=== PATIENT | male | born 1995 | race Caucasian/White ===

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

== ENCOUNTER 2017-01-03 18:27 | Inpatient (IN) | payer MEDICAID ==
[~2017-01-03] VITALS: Ht 177.8 cm; Wt 113.5 kg
[2017-01-03 18:58] LABS: MEAN CORPUSCULAR HEMOGLOBIN 30.8 pg (27.0-33.0); MEAN CORPUSCULAR VOLUME 90.3 fl (80.0-96.0); RED CELL DISTRIBUTION WIDTH 12.2 % (11.5-14.5); WHITE BLOOD COUNT 8.6 K/mm3 (4.0-10.0)
[2017-01-03 19:32] LABS: ALBUMIN 3.6 GM/DL (3.2-5.2); ALBUMIN/GLOBULIN RATIO 1.09 (1.00-1.93); ALKALINE PHOSPHATASE 94 U/L (45-117); ALT/SGPT 53 U/L (12-78); ANION GAP 9 MEQ/L (8-16); AST/SGOT 29 U/L (15-37); BILIRUBIN,DIRECT < 0.1 MG/DL (0.0-0.2); BILIRUBIN,TOTAL 0.3 MG/DL (0.2-1.0); BLOOD UREA NITROGEN 13 MG/DL (7-18); CALCIUM LEVEL 8.4 MG/DL (8.5-10.1); CARBON DIOXIDE LEVEL 23 MEQ/L (21-32); CHLORIDE LEVEL 109 MEQ/L (98-107); CREATININE FOR GFR 1.06 MG/DL (0.70-1.30); GLUCOSE, FASTING 124 MG/DL (70-105); SODIUM LEVEL 141 MEQ/L (136-145); TOTAL PROTEIN 6.9 GM/DL (6.4-8.2)
[2017-01-03 22:15] LABS: METHADONE URINE NEGATIVE (NEGATIVE)
--- NOTE | 2017-01-04 06:44 | ECGEPIP ---
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
[2017-01-04] MEDS ORDERED: SERTRALINE HCL 50 MG TAB PO ONE (07:30)
[2017-01-04] MEDS ORDERED: ARIPiprazole 10 MG TAB PO ONE (07:30)
[2017-01-04] MEDS ORDERED: DIVALPROEX 250 MG TAB PO ONE (07:30)
[2017-01-04] MEDS ORDERED: CETIRIZINE (ZyrTEC) 10 MG TAB PO ONE (07:30)
[2017-01-05] MEDS ORDERED: SERTRALINE HCL 50 MG TAB PO ONE (08:30)
[2017-01-05] MEDS ORDERED: ARIPiprazole 10 MG TAB PO ONE (08:30)
[2017-01-05] MEDS ORDERED: CETIRIZINE (ZyrTEC) 10 MG TAB PO ONE (08:30)
[2017-01-05] MEDS ORDERED: ARIPiprazole 10 MG TAB PO SCH (09:00)
[2017-01-05] MEDS: DIVALPROEX 250 MG TAB PO SCH ×2 (09:00→22:01)
[2017-01-05] MEDS: NICOTINE 21MG/24HR 1 EA TRANSDERMAL TD SCH (09:00)
[2017-01-05] MEDS ORDERED: MAALOX 30 ML SUSP *UDC PO PRN (13:45)
[2017-01-05] MEDS ORDERED: ACETAMINOPHEN TAB 650MG DOSE (2X325MG) PO PRN (13:45)
[2017-01-05] MEDS ORDERED: MOM 30ML SUSPENSION UDC PO PRN (13:45)
[2017-01-05] MEDS ORDERED: ABIL20TA5 PO (14:56)
[2017-01-05 17:28] VITALS: BP 143/89
[2017-01-05] MEDS ORDERED: traZODone 50 MG TAB PO PRN (21:00)
[2017-01-06 06:24] VITALS: BP 130/63
[2017-01-06] MEDS: SERTRALINE HCL 50 MG TAB PO SCH (08:55)
[2017-01-06] MEDS: DIVALPROEX 250 MG TAB PO SCH ×2 (08:55→20:58)
[2017-01-06] MEDS: ARIPiprazole 10 MG TAB PO SCH (08:55)
[2017-01-06] MEDS: NICOTINE 21MG/24HR 1 EA TRANSDERMAL TD SCH (09:00)
--- NOTE | 2017-01-06 10:00 | HPEPDOC ---
Medical History and Physical Date of Admission Jan 05, 2017 at 13:45 History and Physical PCP:[facility] ATTENDING: Dr. Ankur Teixeira HPI: 21yoM admitted to [facility] for depression, undifferentiated, being medically examined today. Pt has no concerns at this time. He is noted to have superficial lacerations left forearm. Denies any fevers, chills, weakness, fatigue, POTTER, CP, SOB, cough, palpitations, abdominal pain, N/V/D or changes in bowel or bladder habits. PMHx: Anxiety depression H/O SI ADHD Self mutilation insomnia allergic rhinitis H/O Headache PSHX: Tonsillectomy/adenoidectomy SOCHX: Resides in: [facility]. Marital Status: Single Kids: None Employment: Unemployed Tobacco use: States quit 1 month ago. ETOH: Few drinks per month Illicit Drugs: Marijuana 2 times per week. IV Drug Use: Denies Tattoos done unprofessionally: Denies FAMHX: Mother: Alive, well Father: , suicide at age 23 Siblings: Alive, well Children: None Unexpected deaths due to medical reasons: None. ROS: As noted in HPI, otherwise 11pt ROS of systems reviewed and unremarkable PE: GEN: 21 yo M, appears stated age. Well-nourished, well developed. No acute distress. Alert and oriented x 3. Pleasant, interactive. HEENT: Normocephalic, atraumatic. Pupils are equal, round, and reactive to light. Extraocular movements are intact. No nystagmus appreciated. Sclera are nonicteric. Conjunctiva without injection. Nose midline. Nasal turbinates without bogginess. EACs both patent BL. TMs both visualized and sarah with good cone of light, no bulging or erythema. No facial asymmetry. Moist mucous membranes. Dentition fair. Pharynx pink and moist, no cobblestoning. Neck supple , trachea midline. No lymphadenopathy or thyromegaly appreciated. CHEST: Regular rate and rhythm, +S1, +S2 LUNGS: Clear to auscultation bilaterally. No wheezes, rales, or rhonchi. Breathing appears symmetric and easy. Patient is speaking in full sentences. No accessory muscle use. ABD: Round, soft, non-tender, non-distended. +Bowel sounds throughout. No rebound or guarding. No costovertebral angle tenderness. EXT: Pulses 2+ bilaterally dorsalis pedis and radial. No lower extremity edema appreciated. SKIN: [place], dry, warm. Capillary refill <2sec. No rashes. NEURO: Alert and oriented x 3. Cranial nerves III-XII are intact. No focal deficits appreciated. EK01/03/17 SINUS RHYTHM A&P: 21yoM admitted to [facility] for depression, undifferentiated 1. Psych. Plan per Psychiatry. EKG on file. 2. Headache. Continue Tylenol as needed. 3. Follow up with PCP on discharge. [facility]. 4. BMI 35.9. TSH WNL, FBS WNL. Complicates care. 5. Allergic rhinitis. Continue Zyrtec 10 mg daily and Flonase daily. 6. Staff member present throughout exam, monica Palencia. Vital Signs Vital Signs Date Time Temp Pulse Resp B/P (MAP) Pulse Ox O2 Delivery O2 Flow Rate FiO2 01/06/17 06:24 96.6 68 19 130/63 (85) 01/05/17 17:28 Room Air 01/05/17 16:55 98 Laboratory Data Labs 24H Item Value Date Time White Blood Count 8.6 K/mm3 01/03/171851 Red Blood Count 4.73 M/mm3 01/03/171851 Hemoglobin 14.6 g/dl 01/03/171851 Hematocrit 42.8 % 01/03/171851 Mean Corpuscular Volume 90.3 fl 01/03/171851 Mean Corpuscular Hemoglobin 30.8 pg 01/03/171851 Mean Corpuscular Hemoglobin Concent 34.0 g/dl 01/03/171851 Red Cell Distribution Width 12.2 % 01/03/171851 Platelet Count 203 k/mm3 01/03/171851 Sodium Level 141 MEQ/L 01/03/171851 Potassium Level 4.0 MEQ/L 01/03/171851 Chloride Level 109 MEQ/L H 01/03/171851 Carbon Dioxide Level 23 MEQ/L 01/03/171851 Anion Gap 9 MEQ/L 01/03/171851 Blood Urea Nitrogen 13 MG/DL 01/03/171851 Creatinine 1.06 MG/DL 01/03/171851 Fasting Glucose 124 MG/DL H 01/03/171851 Calcium Level 8.4 MG/DL L 01/03/171851 Total Bilirubin 0.3 MG/DL 01/03/171851 Direct Bilirubin < 0.1 MG/DL 01/03/171851 Aspartate Amino Transf (AST/SGOT) 29 U/L 01/03/171851 Alanine Aminotransferase (ALT/SGPT) 53 U/L 01/03/171851 Alkaline Phosphatase 94 U/L 01/03/171851 Total Protein 6.9 GM/DL 01/03/171851 Albumin 3.6 GM/DL 01/03/171851 Albumin/Globulin Ratio 1.09 01/03/171851 Thyroid Stimulating Hormone (TSH) 2.340 uIU/ML 01/03/171851 Salicylates Level < 1.7 MG/DL L 01/03/171851 Urine Opiates Screen NEGATIVE 01/03/172144 Urine Methadone Screen NEGATIVE 01/03/172144 Acetaminophen Level < 2.0 UG/ML L 01/03/171851 Urine Barbiturates Screen NEGATIVE 01/03/172144 Valproic Acid (Depakene) Level 14.3 UG/ML L 01/03/172302 Urine Phencyclidine Screen NEGATIVE 01/03/172144 Urine Amphetamines Screen NEGATIVE 01/03/172144 Urine Benzodiazepines Screen NEGATIVE 01/03/172144 Urine Cocaine Metabolite Screen NEGATIVE 01/03/172144 Urine Cannabinoids Screen POSITIVE H 01/03/172144 Ethyl Alcohol Level < 0.003 % 01/03/171851 Home Medications Scheduled Aripiprazole (Abilify) 20 Mg Tab, 20 MG PO QHS Cetirizine HCl (Cetirizine HCl) 10 Mg Tab, 10 MG PO DAILY for ALLERGIES Divalproex Sodium (Depakote) 250 Mg Tab, 250 MG PO BID for MOOD Fluticasone Propionate (Fluticasone Propionate 0.05%) 120 [place]/16 Gm Naspr, 1 SPRAY NA DAILY for ALLERGIES PER NOSTRIL Sertraline Hcl (Sertraline HCl) 50 Mg Tab, 50 MG PO DAILY for MOOD Allergies Coded Allergies: No Known Allergies (Unverified , 01/08/16) Brina Mora Jan 06, 2017 10:00
[2017-01-06] MEDS: CETIRIZINE (ZyrTEC) 10 MG TAB PO SCH (10:18)
[2017-01-06] MEDS: FLUTICASONE PROP 0.05% NASAL SPRAY 16 GM (FLONASE) SCH (10:22)
--- NOTE | 2017-01-06 13:17 | MHHPEPDOC ---
[facility] History & Physical History and Physical DATE OF ADMISSION: Jan 05, 2017 at 13:45 LEGAL STATUS AT ADMISSION: 9.39 CHIEF COMPLAINT: "Something was telling me to cut. I hear voices when I get upset". HISTORY OF THE PRESENT ILLNESS: Patient is a 21-year-old male, who is currently a resident of [facility] in [place]. He resides in a mcc. His Manager Banking is Kait Valdez. Pt has numerous admissions to out unit since 2014 with diagnosis ranging from MDD to Schizoaffective disorder. He was visiting his parents home when he got into an argument and anger is a triger for his psychotic symptoms. He started hearing voices telling him to cut himself and his mother called 911. He states that he hears 1 or 2 male voices. He reports that he was so angry "I felt possessed by a demon". He admits to not taking his medication regularly offering , "I don't like to take pills". However he will drink Andres Beam and smoke marijuana. He has been drinking quite a bit lately and attends the [facility] addictions program. He is drug tested but somehow his drug use recently has not been detected. The night of his admission, pt had learned his Girlfriend cheated on him with her ex-boyfriend. He went to his parents house and argued with them and wanted to harm himself. PSYCHIATRIC REVIEW OF SYSTEMS: Affective: calm, smiling, pleasant. Anxiety: mild. Trauma: Patient says he was bullied by his classmates when he was a young boy because he was different. He denies sexual or physical abuse from his family. He says he started feeling very depressed when his grandmother passed a couple of years ago. She was his stepfather's mother and he felt closer to her than to his maternal grandmother. He feels that his grandmother's was a trigger for his depression. Psychosis: auditory hallucinations, can be triggered by marijuana, can be triggered by anger. Personally: cooperative, easy to engage. PAST PSYCHIATRIC HISTORY: Prior Psychiatric Disorder: MDD, Schizophrenia, Schizoaffective disorder, MDD with psychotic features., Depression, undifferentiated. Outpatient Treatment: [facility] addiction ewing Suicidal/Self injurious: h/o self inflicted injury in response to voices telling him to cut himself. When angered he has punched the wall or he has punched his hand through glass. Pt states it is a relief for him and he feels better after hurting himself and it helps him to calm down. Psychotropic Medication History: current meds prescribed are sertraline, abilify , trazodone & depakote ALLERGIES: NKDA FAMILY PSYCHIATRIC HISTORY: Mother, depression, father-alcoholic "sick in the head" committed suicide by gunshot to the head, Maternal Grand Mother has bipolar disorder. SOCIAL HISTORY: Early Relations/development: father from suicide when pt was 6 months old. Sibling order: He is the oldest and the only son of his mother's first marriage. He has a half-brother and half sister, who are younger than him. Paternal relationships: Conflictive in relationship with mother, good relationship with stepfather at times, no relationship with his father who when he was an . 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 Legal: none Martial: single never . Economic: disability. Supports: [facility] program, peers, [facility] addiction center. Abuse/trauma: denies sexual assault, physical abuse. SUBSTANCE ABUSE HISTORY: Toxicology negative for most substances, but elevated for Cannabis. He used to smoke cannabis daily but not currently. He frequently smokes it with his step-father. He also continues to drink alcohol. The night of his admission he offers he had 1 shot of whiskey but a week or 2 before his admission he says he drank 1 whole bottle of Geraldo Washburn and "felt fine". Pt denies use of other substances. He does not smoke cigarettes he says. PAST MEDICAL/SURGICAL HISTORY: 1. Tonsillectomy/adenoidectomy 2. H/O Headaches 3. allergic rhinitis VITAL SIGNS: Temperature 97.7, pulse 79, respiratory rate 16, blood pressure 130 /63 , pulse oximetry 98% on room air. EKG: Stationary ECG Study [facility] - ED Test Date: 2017-01-03 Pat Name: CRISTOFER KENNEDY Department: Room: - Gender: M Personnel Research Psychologist: chavo : 1995 Requested By: KECIA Neal Order Number: [id number] Reading MD: Lamont Munoz Measurements Intervals [place] Rate: 77 P: 19 MN: 176 QRS: 18 QRSD: 86 T: 20 QT: 322 QTc: 364 Interpretive Statements SINUS RHYTHM 09/24/16 - RATE INCREASED Electronically Signed On 01-04-2017 6:43:38 EDT by Lamont Munoz DD: Lamont Munoz MD 01/03/172047 DT: ALMA 01/04/17642 DS: ROBERT 01/04/1764201/04/17642 MENTAL STATUS EXAMINATION: General appearance: Patient is a 21-year old male, who appears older than stated age. He has a slim desir, a bit overweight, tall wearing hospital attire. Speech: clear and spontaneous Thought processes: linear but illogical at times. For instance he says he wants to join the and will stop using drugs so he can enlist but he really has not intention of stopping marijuana use. Thought content: appropriate Abstract reasoning and computation: concrete. Description of associations: good. Description of abnormal or psychotic thoughts: He says he feels better after he deliberately harms himself. Pt says at times when he is walking outside and it is windy and he is near a tall building he fears h ewill be thrown up in the air and blown away. He feels after a long walk that he might fly away. Judgment: poor impulse control Insight: poor Orientation: well oriented in all spheres. Recent and remote memory: impaired. Has difficulty with long-term memory. Attention span and concentration: fair, easily distracted. Fund of knowledge: impaired. Mood: "Up and down". Affect: pleasant. DIAGNOSES: 1, MDD, moderate, recurrent with psychotic features. Cannabis dependence Alcohol abuse ADHD by history ASSESSMENT: No evidence of formal thought disorder. No delusions or obsessions, no FOI. Some looseness of associations. Pt appears below average in intelligence. Some of his reasoning is poor. For instance that he could enlist in the with his mental health and substance abuse problems. Pt admits to fluctuation in mood and reports depression 7 days out of the month. He identifies triggers for his anger as his parents (mother and step- father) and relationship problems. He reports hearing voices when upset or angry. He does not recall when he first began hearing voices. He endorses psychomotor retardation not agitation. Pt states that he spends his days working out at the gym, walking and looking for a job. When not doing this he may go to his uncles house where he drinks whisky. Pt does not drive. Pt states he plans to continue using marijuana but plans to stop using ETOH until he is 23 yo. Pt reports good sleep, lack of interest in fishing, hunting and skateboarding- things he typically enjoys., He says 1 or 2 days a week he sits around and does nothing. He reports good concentration, decreased appetite with weight gain and frequent suicidal ideation. He wishes he would just not wake up sometimes. He denies having a plan or intent of suicide. There are no weapons at his mcc. Pt states he worries about getting a phone call with bad news that another family member has . This is how he learned of his Great Grand-father's 2 years ago. He says he "cried like a baby" when he got this call. Aside from harming self, pt identifies quitting the football team in 11th grade as a very impulsive thing he has done. He said he regretted doing this. PROBLEM LIST: 1. risk for suicide 2. ineffective coping skills 3. Non compliance. INITIAL TREATMENT PLAN: 1. Patient was admitted on a 9. 2. Complete history was obtained. 3. With patients permission, family will be contacted and database will be expanded. 4. Patients medication regimen will be reviewed and changed accordingly. 5. Patient will be provided with protected environment. 6. Patient will be treated with individual, group, and milieu therapies. 7. Patient will receive supportive psych-education. 8. Discharge planning will commence immediately. 9. Outpatient follow-up treatment will be strongly recommended. 10. The initial treatment plan will focus initially on: see above ESTIMATED LENGTH OF STAY: 5-7 DAYS. TIME SPENT COUNSELING AND COORDINATING INITIAL CARE: 60 minutes. Medications Scheduled Aripiprazole (Abilify) 20 Mg Tab, 20 MG PO QHS, (Reported) Cetirizine HCl (Cetirizine HCl) 10 Mg Tab, 10 MG PO DAILY for ALLERGIES, ( Reported) Divalproex Sodium (Depakote) 250 Mg Tab, 250 MG PO BID for MOOD Fluticasone Propionate (Fluticasone Propionate 0.05%) 120 Frakes/16 Gm Naspr, 1 SPRAY NA DAILY for ALLERGIES, (Reported) PER NOSTRIL Sertraline Hcl (Sertraline HCl) 50 Mg Tab, 50 MG PO DAILY for MOOD Allergies Coded Allergies: No Known Allergies (Unverified , 01/08/16) Liza Dodge Jan 06, 2017 13:17
[2017-01-06 18:00] VITALS: BP 133/77
[2017-01-06] MEDS ORDERED: OLANZapine ORAL DISINTEGRATING TAB 5MG PO ONE (21:15)
[2017-01-07 06:27] VITALS: BP 112/56
[2017-01-07 07:22] LABS: ALBUMIN 3.7 GM/DL (3.2-5.2); ALBUMIN/GLOBULIN RATIO 1.09 (1.00-1.93); ALKALINE PHOSPHATASE 110 U/L (45-117); ALT/SGPT 55 U/L (12-78); ANION GAP 8 MEQ/L (8-16); AST/SGOT 24 U/L (15-37); BILIRUBIN,TOTAL 0.4 MG/DL (0.2-1.0); BLOOD UREA NITROGEN 15 MG/DL (7-18); CALCIUM LEVEL 9.3 MG/DL (8.5-10.1); CARBON DIOXIDE LEVEL 29 MEQ/L (21-32); CHLORIDE LEVEL 106 MEQ/L (98-107); CREATININE FOR GFR 1.04 MG/DL (0.70-1.30); GLUCOSE, FASTING 81 MG/DL (70-105); POTASSIUM SERUM 4.4 MEQ/L (3.5-5.1); SODIUM LEVEL 143 MEQ/L (136-145); TOTAL PROTEIN 7.1 GM/DL (6.4-8.2)
[2017-01-07] MEDS: CETIRIZINE (ZyrTEC) 10 MG TAB PO SCH (09:19)
[2017-01-07] MEDS: ARIPiprazole 10 MG TAB PO SCH (09:19)
[2017-01-07] MEDS: FLUTICASONE PROP 0.05% NASAL SPRAY 16 GM (FLONASE) SCH (09:19)
[2017-01-07] MEDS: SERTRALINE HCL 50 MG TAB PO SCH (09:19)
[2017-01-07] MEDS: DIVALPROEX 250 MG TAB PO SCH ×2 (09:19→21:34)
--- NOTE | 2017-01-07 13:47 | MHIPNPDOC ---
[facility] Progress Note Progress Note DATE OF SERVICE: 01/07/17 HISTORY: day 3 of admission. Pt has had numerous admissions to our unit since 2015 with diagnosis ranging from MDD to Schizoaffective disorder. He was visiting his parents home when he got into an argument and anger is a trigger for his psychotic symptoms. He started hearing voices telling him to cut himself and his mother called 911. He states that he hears 1 or 2 male voices. He reports that he was so angry "I felt possessed by a demon". He admits to not taking his medication regularly offering, "I don't like to take pills". However he will drink Andres Beam and smoke marijuana. He has been drinking quite a bit lately and attends the [facility] addictions program. He is drug tested but somehow his drug use recently has not been detected. The night of his admission, pt had learned his Girlfriend cheated on him with her ex-boyfriend. He went to his parents house and argued with them and wanted to harm himself. VITAL SIGNS: See below. NEW TEST RESULTS: CMP completed. Glucose 81 for fasting lab. CURRENT MEDICATIONS: See below. MENTAL STATUS EXAMINATION: Patient is a 21-year old male, who appears older than his years. He is tall, a little overweight, bearded, blonde and makes good eye contact.. Speech: Is clear, spontaneous. Language skills are intact Thought processes including:linear Thought content: appropriate Abstract reasoning, and computation: concrete. Description of associations: good. Description of abnormal or psychotic thoughts: pt hears voices when he gets angry or is upset by someone. they tell him to harm himself. He usually cuts himself. He is not actively suicidal at this time, however his depakote level is very subtherapeutic and his compliance warrants monitoring at this time for his safety. Judgment: fair. Insight: good. Orientation: oriented to person, place, time and surroundings. Recent and remote memory: poor by his own admission. Pt has been smoking cannabis regularly for many years. Attention span and concentration: limited Fund of knowledge:limited. Mood: "blah". Affect: blunted. DIAGNOSES: MDD, moderate, recurrent with psychotic features. Cannabis dependence Alcohol abuse ADHD by history ASSESSMENT: Met with pt briefly for 1:1 today. His mood is poor but he is out of his room, attending groups, and interacting appropriately. He is taking medications as ordered.He was compliant with lab work today. Pt is hoping to have a friend visit michelle. He is not having suicidal thoughts and does not wish he was . MANAGEMENT PLAN: We will continue with medications and check his valproic acid level on Thursday. We will plan a family meeting to explain to his parents that he must remain on medication on the weekends. We will explain that stopping the medications repeatedly is unhealthy. Continue close observation and enc pt to attend to hygiene and continue with groups. TIME SPENT: 15 minutes. Vital Signs Vital Signs Date Time Temp Pulse Resp B/P (MAP) Pulse Ox O2 Delivery O2 Flow Rate FiO2 01/07/17 06:27 98.0 62 18 112/56 (74) 01/05/17 17:28 Room Air 01/05/17 16:55 98 Laboratory Data 24H Labs Laboratory Tests 2 01/07/17 06:28: Anion Gap 8, Blood Urea Nitrogen 15, Creatinine 1.04, Sodium Level 143, Potassium Level 4.4, Chloride Level 106, Carbon Dioxide Level 29, Calcium Level 9.3, Aspartate Amino Transf (AST/SGOT) 24, Alanine Aminotransferase (ALT/SGPT) 55, Alkaline Phosphatase 110, Total Bilirubin 0.4, Total Protein 7.1, Albumin 3.7, Albumin/Globulin Ratio 1.09 CBC/BMP Laboratory Tests 01/07/17 06:28 Calcium Level 9.3, Aspartate Amino Transf (AST/SGOT) 24, Alanine Aminotransferase (ALT/SGPT) 55, Alkaline Phosphatase 110, Total Bilirubin 0.4, Total Protein 7.1, Albumin 3.7 Current Medications Current Medications Acetaminophen (Tylenol Tab) 650 mg Q6HP PRN PO HEADACHE or DISCOMFORT; Start at 13:45; Stop 02/04/17 at 13:44 Al Hydrox/Mg Hydrox/Simethicone (Mylanta) 30 ml Q4HP PRN PO HEARTBURN/ INDIGESTION; Start 01/05/17 at 13:45; Stop 02/04/17 at 13:44 Aripiprazole (AbiLIFY) 20 mg DAILY PO ; Start 01/05/17 at 09:00; Stop 01/05/17 at 13:54; Status DC Aripiprazole (AbiLIFY) 20 mg DAILY PO Last administered on 01/07/17 09:19; Start 01/06/17 at 09:00; Stop 02/05/17 at 08:59 Cetirizine HCl (ZyrTEC) 10 mg DAILY PO Last administered on 01/07/17 09:19; Start 01/06/17 at 09:00; Stop 02/05/17 at 08:59 Divalproex Sodium (Depakote) 250 mg BID PO Last administered on 01/07/17 09:19 ; Start 01/05/17 at 09:00; Stop 02/04/17 at 08:59 Fluticasone Propionate (Flonase 0.05% Nasal [place]) 1 spray DAILY NA Last administered on 01/07/17 09:19; Start 01/06/17 at 09:00; Stop 02/05/17 at 08:59 Home Med (Med Rec Complete!) ASDIRECTED XX ; Start 01/05/17 at 15:00; Stop at 15:00; Status DC Magnesium Hydroxide (Milk Of Magnesia) 30 ml DAILYPRN PRN PO CONSTIPATION; Start 01/05/17 at 13:45; Stop 02/04/17 at 13:44 Nicotine (Nicoderm Cq 21mg) 1 patch DAILY TD ; Start 01/05/17 at 09:00; Stop at 08:02; Status DC Sertraline HCl (Zoloft) 50 mg DAILY PO Last administered on 01/07/17 09:19; Start 01/06/17 at 09:00; Stop 02/05/17 at 08:59 Trazodone HCl (Desyrel) 50 mg QHSP PRN PO INSOMNIA; Start 01/05/17 at 21:00; Stop 02/04/17 at 20:59 Allergies Coded Allergies: No Known Allergies (Unverified , 01/08/16) Liza Dodge Jan 07, 2017 13:47
[2017-01-07 18:03] VITALS: BP 138/59
[2017-01-08 06:26] VITALS: BP 126/75
[2017-01-08] MEDS: CETIRIZINE (ZyrTEC) 10 MG TAB PO SCH (09:09)
[2017-01-08] MEDS: SERTRALINE HCL 50 MG TAB PO SCH (09:09)
[2017-01-08] MEDS: ARIPiprazole 10 MG TAB PO SCH (09:09)
[2017-01-08] MEDS: DIVALPROEX 250 MG TAB PO SCH ×2 (09:09→22:03)
[2017-01-08] MEDS: FLUTICASONE PROP 0.05% NASAL SPRAY 16 GM (FLONASE) SCH (09:09)
--- NOTE | 2017-01-08 14:07 | MHIPNPDOC ---
[facility] Progress Note Progress Note DATE OF SERVICE: 01/08/17 HISTORY: day 4 of admission following snorting depakote hoping he would overdose following a fight with parents and learning his GF cheated on him. VITAL SIGNS: See below. NEW TEST RESULTS: na CURRENT MEDICATIONS: See below. MENTAL STATUS EXAMINATION: Patient is a 21-year old male, who is large framed, small desir, wearing hospital clothes, good eye contact. Speech: Is spontaneous Language skills are good. Thought processes including: goal directed. Thought content: appropriate. Abstract reasoning, and computation: concrete. Description of associations: good, not loose. Description of abnormal or psychotic thoughts: denies heairng voices today, denies having suicidal thoughts today. Agrees to inform staff if he has thoughts and fears he may act on them. Judgment: limited Insight: poor. Orientation: well oriented in all spheres. Recent and remote memory: varies Attention span and concentration: fair Fund of knowledge: average. Mood:euthymic. Affect: blunted. DIAGNOSES: MDD, moderate, recurrent with psychotic features. Cannabis dependence Alcohol abuse ADHD by history ASSESSMENT:In room c/o headache this morning. stated he could not attend group due to this. Offered tylenol but he declined stating it does not help him. states he did attend one group yesterday. Encouraged to attend next group and to attend at least 2 a day. Present in lounge at meal times. Interacts well socially. Attended team conference this am. MANAGEMENT PLAN: pt is stabilizing, improved mood, less anger, no auditory hallucinations, no thoughts of suicide for 24 hours. Signed ANGELA for mother today. She will be contact about pt taking his meds on the weekend. Anticipate discharge early next week. TLS will be notified that Thursday is the soonest day but perhaps it will be Thursday. Checking lipids and depakote level tomorrow. TIME SPENT: 15 minutes. Vital Signs Vital Signs Date Time Temp Pulse Resp B/P (MAP) Pulse Ox O2 Delivery O2 Flow Rate FiO2 01/08/17 06:26 98.1 70 18 126/75 (92) 01/05/17 17:28 Room Air 01/05/17 16:55 98 Current Medications Current Medications Acetaminophen (Tylenol Tab) 650 mg Q6HP PRN PO HEADACHE or DISCOMFORT; Start at 13:45; Stop 02/04/17 at 13:44 Al Hydrox/Mg Hydrox/Simethicone (Mylanta) 30 ml Q4HP PRN PO HEARTBURN/ INDIGESTION; Start 01/05/17 at 13:45; Stop 02/04/17 at 13:44 Aripiprazole (AbiLIFY) 20 mg DAILY PO ; Start 01/05/17 at 09:00; Stop 01/05/17 at 13:54; Status DC Aripiprazole (AbiLIFY) 20 mg DAILY PO Last administered on 01/08/17 09:09; Start 01/06/17 at 09:00; Stop 02/05/17 at 08:59 Cetirizine HCl (ZyrTEC) 10 mg DAILY PO Last administered on 01/08/17 09:09; Start 01/06/17 at 09:00; Stop 02/05/17 at 08:59 Divalproex Sodium (Depakote) 250 mg BID PO Last administered on 01/08/17 09:09 ; Start 01/05/17 at 09:00; Stop 02/04/17 at 08:59 Fluticasone Propionate (Flonase 0.05% Nasal [place]) 1 spray DAILY NA Last administered on 01/08/17 09:09; Start 01/06/17 at 09:00; Stop 02/05/17 at 08:59 Home Med (Med Rec Complete!) ASDIRECTED XX ; Start 01/05/17 at 15:00; Stop at 15:00; Status DC Magnesium Hydroxide (Milk Of Magnesia) 30 ml DAILYPRN PRN PO CONSTIPATION; Start 01/05/17 at 13:45; Stop 02/04/17 at 13:44 Nicotine (Nicoderm Cq 21mg) 1 patch DAILY TD ; Start 01/05/17 at 09:00; Stop at 08:02; Status DC Sertraline HCl (Zoloft) 50 mg DAILY PO Last administered on 01/08/17 09:09; Start 01/06/17 at 09:00; Stop 02/05/17 at 08:59 Trazodone HCl (Desyrel) 50 mg QHSP PRN PO INSOMNIA; Start 01/05/17 at 21:00; Stop 02/04/17 at 20:59 Allergies Coded Allergies: No Known Allergies (Unverified , 7/19/16) Liza Dodge Jan 08, 2017 14:07
[2017-01-08 18:00] VITALS: BP 145/85
[2017-01-09 06:20] VITALS: BP 126/59
[2017-01-09] MEDS: FLUTICASONE PROP 0.05% NASAL SPRAY 16 GM (FLONASE) SCH (08:00)
[2017-01-09] MEDS: ARIPiprazole 10 MG TAB PO SCH (08:01)
[2017-01-09] MEDS: DIVALPROEX 250 MG TAB PO SCH ×2 (08:01→21:45)
[2017-01-09] MEDS: SERTRALINE HCL 50 MG TAB PO SCH (08:01)
[2017-01-09] MEDS: CETIRIZINE (ZyrTEC) 10 MG TAB PO SCH (08:01)
--- NOTE | 2017-01-09 09:50 | MHIPNPDOC ---
[facility] Progress Note Progress Note DATE OF SERVICE: 01/09/17 HISTORY: day 5 of admission, pt admitted after an argument with parents where he threatened suicide by snorting his depakote. Pt also upset over the breakup of his relationship with a female who cheated on him. Pt was suicidal and depressed. VITAL SIGNS: See below. NEW TEST RESULTS: Lipid panel: Triglycerides slightly elevated at 207, Total Cholesterol is 140, LDL-83.6 and HDL, low at 15. CURRENT MEDICATIONS: See below. MENTAL STATUS EXAMINATION: Patient is a 21-year old male, who is tall, stocky build, slim desir, appears older than 21, good eye contact. Speech: Is logical and clear Language skills are intact Thought processes including: goal directed Thought content: appropriate Abstract reasoning, and computation: good. Description of associations: good. Description of abnormal or psychotic thoughts: no auditory disturbances, no thoughts of suicide for several days. pt does identify cannabis use as a trigger for psychosis. Judgment: fair Insight: good. Orientation: oriented in all spheres. Recent and remote memory: impaired per self-report, may be related to frequent cannabis use during his teen years. Attention span and concentration: varies. Fund of knowledge:average Mood:euthymic. Affect: congruent DIAGNOSES: MDD, moderate, recurrent with psychotic features. Cannabis dependence Alcohol abuse ADHD by history ASSESSMENT:Pt reports improved mood, no longer feeling depressed. Feels he is ready for discharge. "I'm so ready to leave". He has a Depakote level pending today. Lipid profile is pending. Results will be available to commercial loan underwriter on Thursday for Depakote as it is scheduled later today. Barring any unforeseen events, pt can be discharged and return to [facility] on Thursday. Will notify supply chain planner. Will likely be an afternoon discharge. Offbearer talked with pts mother, Cayla yesterday. She supports him taking his medication on the weekend when he visits and says he does have them prepared by [facility] and he brings them with him. She says she is not certain he follows through on weekends when he is not at her house. Cayla will remind Eulogio to take his meds when he is at her home. Pt received lots of medication education during his stay. Hopefully he is convinced that daily dosing is necessary with Depakote and Sertraline. He c/o mood swings and anger problems and steady state of medications can provide support for these areas of concern. MANAGEMENT PLAN:continue sertraline, continue close observation. pt is not motivated to attend groups, he needs frequent prompts to participate. Motivation overall is quite low but pt states he wants to get a job. This is encouraged for several reasons. He can meet new people and keep honing his skills while learning new ones. TIME SPENT: 30 minutes. Vital Signs Vital Signs Date Time Temp Pulse Resp B/P (MAP) Pulse Ox O2 Delivery O2 Flow Rate FiO2 01/09/17 06:20 97.7 70 20 126/59 (81) 01/05/17 17:28 Room Air 01/05/17 16:55 98 Laboratory Data 24H Labs Laboratory Tests 2 01/09/17 06:47: Triglycerides Level 207H, LDL Cholesterol 83.6, Total Cholesterol 140, Non-HDL Cholesterol (LDL + VLDL) 125, Total HDL Cholesterol 15L, Cholesterol/HDL Ratio 9.333H Current Medications Current Medications Acetaminophen (Tylenol Tab) 650 mg Q6HP PRN PO HEADACHE or DISCOMFORT; Start at 13:45; Stop 02/04/17 at 13:44 Al Hydrox/Mg Hydrox/Simethicone (Mylanta) 30 ml Q4HP PRN PO HEARTBURN/ INDIGESTION; Start 01/05/17 at 13:45; Stop 02/04/17 at 13:44 Aripiprazole (AbiLIFY) 20 mg DAILY PO ; Start 01/05/17 at 09:00; Stop 01/05/17 at 13:54; Status DC Aripiprazole (AbiLIFY) 20 mg DAILY PO Last administered on 01/09/17 08:01; Start 01/06/17 at 09:00; Stop 02/05/17 at 08:59 Cetirizine HCl (ZyrTEC) 10 mg DAILY PO Last administered on 01/09/17 08:01; Start 01/06/17 at 09:00; Stop 02/05/17 at 08:59 Divalproex Sodium (Depakote) 250 mg BID PO Last administered on 01/09/17 08:01 ; Start 01/05/17 at 09:00; Stop 02/04/17 at 08:59 Fluticasone Propionate (Flonase 0.05% Nasal [place]) 1 spray DAILY NA Last administered on 01/09/17 08:00; Start 01/06/17 at 09:00; Stop 02/05/17 at 08:59 Home Med (Med Rec Complete!) ASDIRECTED XX ; Start 01/05/17 at 15:00; Stop at 15:00; Status DC Magnesium Hydroxide (Milk Of Magnesia) 30 ml DAILYPRN PRN PO CONSTIPATION; Start 01/05/17 at 13:45; Stop 02/04/17 at 13:44 Nicotine (Nicoderm Cq 21mg) 1 patch DAILY TD ; Start 01/05/17 at 09:00; Stop at 08:02; Status DC Sertraline HCl (Zoloft) 50 mg DAILY PO Last administered on 01/09/17 08:01; Start 01/06/17 at 09:00; Stop 02/05/17 at 08:59 Trazodone HCl (Desyrel) 50 mg QHSP PRN PO INSOMNIA; Start 01/05/17 at 21:00; Stop 02/04/17 at 20:59 Allergies Coded Allergies: No Known Allergies (Unverified , 01/08/16) Liza Dodge Jan 09, 2017 09:50
[2017-01-09 18:00] VITALS: BP 124/55
[2017-01-10 07:00] VITALS: BP 112/64
[2017-01-10] MEDS: ARIPiprazole 10 MG TAB PO SCH (08:07)
[2017-01-10] MEDS: FLUTICASONE PROP 0.05% NASAL SPRAY 16 GM (FLONASE) SCH (08:07)
[2017-01-10] MEDS: DIVALPROEX 250 MG TAB PO SCH ×2 (08:07→21:35)
[2017-01-10] MEDS: SERTRALINE HCL 50 MG TAB PO SCH (08:08)
[2017-01-10] MEDS: CETIRIZINE (ZyrTEC) 10 MG TAB PO SCH (08:08)
[2017-01-10 18:00] VITALS: BP 144/67
[2017-01-11 06:20] VITALS: BP 130/60
[2017-01-11] MEDS: ARIPiprazole 10 MG TAB PO SCH (08:52)
[2017-01-11] MEDS: FLUTICASONE PROP 0.05% NASAL SPRAY 16 GM (FLONASE) SCH (08:52)
[2017-01-11] MEDS: CETIRIZINE (ZyrTEC) 10 MG TAB PO SCH (08:52)
[2017-01-11] MEDS: SERTRALINE HCL 50 MG TAB PO SCH (08:52)
[2017-01-11] MEDS: DIVALPROEX 250 MG TAB PO SCH ×2 (08:52→21:03)
[2017-01-11 18:00] VITALS: BP 139/77
[2017-01-12 07:03] VITALS: BP 147/75
[2017-01-12] MEDS: DIVALPROEX 250 MG TAB PO SCH ×2 (09:40→21:41)
[2017-01-12] MEDS: FLUTICASONE PROP 0.05% NASAL SPRAY 16 GM (FLONASE) SCH (09:40)
[2017-01-12] MEDS: SERTRALINE HCL 50 MG TAB PO SCH (09:40)
[2017-01-12] MEDS: CETIRIZINE (ZyrTEC) 10 MG TAB PO SCH (09:40)
[2017-01-12] MEDS: ARIPiprazole 10 MG TAB PO SCH (09:40)
--- NOTE | 2017-01-12 11:29 | MHIPNPDOC ---
[facility] Progress Note Progress Note DATE OF SERVICE: 01/12/17 HISTORY: Day 8 of admission. He was admitted for SI gesture and statements following disagreement with parent and break up of relationship VITAL SIGNS: See below. NEW TEST RESULTS: Depakote level is: 54.8 but it was not a trough level as pat received Depakote in a.m. CURRENT MEDICATIONS: See below. MENTAL STATUS EXAMINATION: Patient is a 21-year old male, who is tall, stocky, small desir, makes good eye contact and pleasant. Speech: Is clear, logical Language skills are good. Thought processes including: linear. Thought content: appropriate. Abstract reasoning, and computation: good. Description of associations:good. Description of abnormal or psychotic thoughts: no psychotic features today or over the weekend. Pt denies auditory disturbances. He presently denies any and all thoughts of harm to self or others. Judgment: fair Insight: good, pt verbalizes desire to work and be more independent, but he lacks the motivation. Orientation: well oriented in all spheres. Recent and remote memory: varies, better with short term memory. Attention span and concentration: varies depending on level of interest. Fund of knowledge: Full. Mood: euthymic. Affect: congruent. DIAGNOSES: MDD, moderate, recurrent with psychotic features. Cannabis dependence Alcohol abuse ADHD by history ASSESSMENT:Pt observed in bed stating "I'm cold not sleeping". He reports doing "all right" over the weekend. He states his mood is much improved and he is ready for discharge. He sleep and appetite are good. he attends group therapy and behaves appropriately. He is taking medication as prescribed. Eulogio attends to hygiene needs regularly. He is visible in the milieu socializing with peers and involved in activities. Eulogio states his desire to be discharged soon. He states his suicidal thinking has stopped and he no longer is upset or wants to kill himself. He says he is ready to move on with life. He wants to return to [facility] and find a job. He is usually very good about taking his medication while at [facility] during the week and he is prepared to pay more attention to taking medication over the weekend. Eulogio states he will walk away when angry in the future or take a walk. MANAGEMENT PLAN: [facility] will be informed we plan to discharge Eulogio tomorrow 01/13 at 1 p.m. Transportation arrangements will be made. He will follow up at [facility] for needs as an outpatient. Reinforced need to stop cannabis use. Pt does attend addictions services but he has not been urine drug tested recently., TIME SPENT: 15 minutes. Vital Signs Vital Signs Date Time Temp Pulse Resp B/P (MAP) Pulse Ox O2 Delivery O2 Flow Rate FiO2 01/12/17 07:03 97.6 63 18 147/75 (99) Current Medications Current Medications Acetaminophen (Tylenol Tab) 650 mg Q6HP PRN PO HEADACHE or DISCOMFORT; Start at 13:45; Stop 02/04/17 at 13:44 Al Hydrox/Mg Hydrox/Simethicone (Mylanta) 30 ml Q4HP PRN PO HEARTBURN/ INDIGESTION; Start 01/05/17 at 13:45; Stop 02/04/17 at 13:44 Aripiprazole (AbiLIFY) 20 mg DAILY PO ; Start 01/05/17 at 09:00; Stop 01/05/17 at 13:54; Status DC Aripiprazole (AbiLIFY) 20 mg DAILY PO Last administered on 01/12/17 09:40; Start 01/06/17 at 09:00; Stop 02/05/17 at 08:59 Cetirizine HCl (ZyrTEC) 10 mg DAILY PO Last administered on 01/12/17 09:40; Start 01/06/17 at 09:00; Stop 02/05/17 at 08:59 Divalproex Sodium (Depakote) 250 mg BID PO Last administered on 01/12/17 09:40 ; Start 01/05/17 at 09:00; Stop 02/04/17 at 08:59 Fluticasone Propionate (Flonase 0.05% Nasal [place]) 1 spray DAILY NA Last administered on 01/12/17 09:40; Start 01/06/17 at 09:00; Stop 02/05/17 at 08:59 Home Med (Med Rec Complete!) ASDIRECTED XX ; Start 01/05/17 at 15:00; Stop at 15:00; Status DC Magnesium Hydroxide (Milk Of Magnesia) 30 ml DAILYPRN PRN PO CONSTIPATION; Start 01/05/17 at 13:45; Stop 02/04/17 at 13:44 Nicotine (Nicoderm Cq 21mg) 1 patch DAILY TD ; Start 01/05/17 at 09:00; Stop at 08:02; Status DC Sertraline HCl (Zoloft) 50 mg DAILY PO Last administered on 01/12/17t 09:40; Start 01/06/17 at 09:00; Stop 02/05/17 at 08:59 Trazodone HCl (Desyrel) 50 mg QHSP PRN PO INSOMNIA; Start 01/05/17 at 21:00; Stop 02/04/17 at 20:59 Allergies Coded Allergies: No Known Allergies (Unverified , 01/08/16) Liza Dodge Jan 12, 2017 11:29
--- NOTE | 2017-01-12 14:12 | MHIPNPDOC ---
[facility] Progress Note Progress Note DATE OF SERVICE: 01/12/17 HISTORY: day 8 of admission, VITAL SIGNS: See below. NEW TEST RESULTS: . CURRENT MEDICATIONS: See below. MENTAL STATUS EXAMINATION: Patient is a -year old male, who is . Speech: Is . Language skills are . Thought processes including: . Thought content: . Abstract reasoning, and computation: . Description of associations: . Description of abnormal or psychotic thoughts: . Judgment: . Insight: [very limited, good, fair. poor]. Orientation: . Recent and remote memory: . Attention span and concentration: . Language: . Fund of knowledge: . Mood: . Affect: . DIAGNOSES: 1. . 2. . 3. . ASSESSMENT: MANAGEMENT PLAN: . TIME SPENT: minutes. Vital Signs Vital Signs Date Time Temp Pulse Resp B/P (MAP) Pulse Ox O2 Delivery O2 Flow Rate FiO2 01/12/17 07:03 97.6 63 18 147/75 (99) Current Medications Current Medications Acetaminophen (Tylenol Tab) 650 mg Q6HP PRN PO HEADACHE or DISCOMFORT; Start at 13:45; Stop 02/04/17 at 13:44 Al Hydrox/Mg Hydrox/Simethicone (Mylanta) 30 ml Q4HP PRN PO HEARTBURN/ INDIGESTION; Start 01/05/17 at 13:45; Stop 02/04/17 at 13:44 Aripiprazole (AbiLIFY) 20 mg DAILY PO ; Start 01/05/17 at 09:00; Stop 01/05/17 at 13:54; Status DC Aripiprazole (AbiLIFY) 20 mg DAILY PO Last administered on 01/12/17 09:40; Start 01/06/17 at 09:00; Stop 02/05/17 at 08:59 Cetirizine HCl (ZyrTEC) 10 mg DAILY PO Last administered on 01/12/17 09:40; Start 01/06/17 at 09:00; Stop 02/05/17 at 08:59 Divalproex Sodium (Depakote) 250 mg BID PO Last administered on 01/12/17 09:40 ; Start 01/05/17 at 09:00; Stop 02/04/17 at 08:59 Fluticasone Propionate (Flonase 0.05% Nasal [place]) 1 spray DAILY NA Last administered on 01/12/17 09:40; Start 01/06/17 at 09:00; Stop 02/05/17 at 08:59 Home Med (Med Rec Complete!) ASDIRECTED XX ; Start 01/05/17 at 15:00; Stop at 15:00; Status DC Magnesium Hydroxide (Milk Of Magnesia) 30 ml DAILYPRN PRN PO CONSTIPATION; Start 01/05/17 at 13:45; Stop 02/04/17 at 13:44 Nicotine (Nicoderm Cq 21mg) 1 patch DAILY TD ; Start 01/05/17 at 09:00; Stop at 08:02; Status DC Sertraline HCl (Zoloft) 50 mg DAILY PO Last administered on 01/12/17 09:40; Start 01/06/17 at 09:00; Stop 02/05/17 at 08:59 Trazodone HCl (Desyrel) 50 mg QHSP PRN PO INSOMNIA; Start 01/05/17 at 21:00; Stop 02/04/17 at 20:59 Allergies Coded Allergies: No Known Allergies (Unverified , 01/08/16) Liza Dodge Jan 12, 2017 14:12
[2017-01-12 18:02] VITALS: BP 116/65
[2017-01-13 06:24] VITALS: BP 127/60
[2017-01-13] MEDS: FLUTICASONE PROP 0.05% NASAL SPRAY 16 GM (FLONASE) SCH (08:41)
[2017-01-13] MEDS: SERTRALINE HCL 50 MG TAB PO SCH (08:41)
[2017-01-13] MEDS: CETIRIZINE (ZyrTEC) 10 MG TAB PO SCH (08:41)
[2017-01-13] MEDS: DIVALPROEX 250 MG TAB PO SCH (08:41)
[2017-01-13] MEDS: ARIPiprazole 10 MG TAB PO SCH (08:41)
[2017-01-13] MEDS ORDERED: TRAZO50TA PO (09:14)
--- NOTE | 2017-01-13 14:42 | MHDSPDOC ---
[facility] Discharge Summary Discharge Summary DATE OF ADMISSION: Jan 05, 2017 at 13:45 DATE OF DISCHARGE: Jan 13, 2017 at 13:30 DISCHARGE DIAGNOSES: MDD, moderate, recurrent with psychotic features. Cannabis dependence Alcohol abuse ADHD by history REASON FOR ADMISSION: pt upset over relationship breakup and then arguing with parents, attempted overdose by snorting Depakote. CONSULTANTS INVOLVED: na TREATMENT AND PROGRESS ON THE UNIT : Pt assimilated easily to the unit. He was visible and social from the start. He attended programming, reluctantly at first and then more willingly as he was here longer and become more comfortable. His interaction with peers was positive. He was polite and respectful of others including staff. He was complaint with medications as prescribed. He was reliable about reporting his response to medications and how they made him feel. He ate at meal time, took care of hygiene needs and did his laundry. he had visitors prn. he was adherent to unit rules and protocols. Pt shared that sometimes he would not take his psych meds when at this parents on the weekend. His mother was contacted and verified this. Both patient and mother were informed that the meds need to be taken daily for maximum benefit. They do not work when taken prn. CMP and lipid panel obtained during visit. Mostly good overall. HOSPITAL COURSE: Pts Valproic acid was very low on admission. He took the medication bid on the unit and his level was found to be 54 after a few days. His dose was kept at the same amount- 250 mg bid. It was not felt that an increase in meds was necessary but that pt take his meds every day as that would to a long way to having a much more stable mood, less problems with anger and impulse control. Pt was encouraged to use more appropriate coping skills to handle anger and frustration. He could identify several methods that would work for him such as walking away, talking a walk. Dough Mixer did some role modeling with pt whereby he would tell someone that since he was angered it would be best for him to talk about the situation after he had time to calm down and think about how to day what he felt not say something he would regret. Pt states prior to admission he was hearing a voice or sometimes 2 male voices but shortly after admission this stopped. Explained to pt that keeping stress low in his life by remaining medication adherent and talking about his concerns were important to his wellbeing. Pt was also cautioned on the hazards of frequent cannabis use in his age. His brain is not fully developed and he should not use any substances at this stage of his development. Pt understood but did not agree to completely be cannabis free. DISCHARGE ASSESSMENT: Pt let machine sign writer know that after about 5 days he was ready for discharge. he agreed to remain through the weekend and told we would discuss leaving on Thursday. On Thursday he was much improved. He showed more motivation. He was ready to return to [facility]. He says he will make more of an effort to find meaningful employment. He agreed to be med compliant and to meet regularly with his counselor at [facility]. Pt declined referral for substance abuse treatment. FAMHX: Mother: Alive, well Father: , suicide at age 23 Siblings: Alive, well Children: None Unexpected deaths due to medical reasons: None. ROS: As noted in HPI, otherwise 11pt ROS of systems reviewed and unremarkable PE: GEN: 21 yo M, appears stated age. Well-nourished, well developed. No acute distress. Alert and oriented x 3. Pleasant, interactive. HEENT: Normocephalic, atraumatic. Pupils are equal, round, and reactive to light. Extraocular movements are intact. No nystagmus appreciated. Sclera are nonicteric. Conjunctiva without injection. Nose midline. Nasal turbinates without bogginess. EACs both patent BL. TMs both visualized and sarah with good cone of light, no bulging or erythema. No facial asymmetry. Moist mucous membranes. Dentition fair. Pharynx pink and moist, no cobblestoning. Neck supple , trachea midline. No lymphadenopathy or thyromegaly appreciated. CHEST: Regular rate and rhythm, +S1, +S2 LUNGS: Clear to auscultation bilaterally. No wheezes, rales, or rhonchi. Breathing appears symmetric and easy. Patient is speaking in full sentences. No accessory muscle use. ABD: Round, soft, non-tender, non-distended. +Bowel sounds throughout. No rebound or guarding. No costovertebral angle tenderness. EXT: Pulses 2+ bilaterally dorsalis pedis and radial. No lower extremity edema appreciated. SKIN: [place], dry, warm. Capillary refill <2sec. No rashes. NEURO: Alert and oriented x 3. Cranial nerves III-XII are intact. No focal deficits appreciated. EK01/03/17 SINUS RHYTHM A&P: 21yoM admitted to [facility] for depression, undifferentiated 1. Psych. Plan per Psychiatry. EKG on file. 2. Headache. Continue Tylenol as needed. 3. Follow up with PCP on discharge. SF. 4. BMI 35.9. TSH WNL, FBS WNL. Complicates care. 5. Allergic rhinitis. Continue Zyrtec 10 mg daily and Flonase daily. MENTAL STATUS EXAMINATION ON DISCHARGE: Patient is a 21-year old male, who appears older than his year, has a thin desir , good eye contact, stock build, pleasant. Speech is clear and spontaneous Language skills are intact, clear, even r/r/tone. Thought processes including: linear. Thought content: appropriate Abstract reasoning, and computation: good. Description of associations: good. Description of abnormal or psychotic thoughts: pt had some episodes of auditory hallucinations on the unit but not frequently. He did not find this a problem in attending groups and processing information. He denies SI shortly after arrival and seems motivated to improve his coping techniques. Judgment: fair Insight: good Orientation to well oriented in all spheres. Recent and remote memory: pt reports poor memory, adequate for things he needed to do while on the unit Attention span and concentration: varies Fund of knowledge: limited/fair. Mood: "all right". Affect: collegial MEDICATIONS ON DISCHARGE: -depakote 250 mg bid -trazodone 50 mg prn for insomnia -sertraline 50 mg q day -Abilify 20 mg po q a.m. PLAN/FOLLOWUP ARRANGEMENTS: Outpatient mental health services at [facility]. The amount of time spent in the coordination of care for this patient was approximately 30 minutes. Vital Signs/I&Os Vital Signs Date Time Temp Pulse Resp B/P (MAP) Pulse Ox O2 Delivery O2 Flow Rate FiO2 01/13/17 06:24 97.3 89 20 127/60 (82) Medications Scheduled Aripiprazole (Abilify) 20 Mg Tab, 20 MG PO QHS, (Reported) Cetirizine HCl (Cetirizine HCl) 10 Mg Tab, 10 MG PO DAILY for ALLERGIES, ( Reported) Divalproex Sodium (Depakote) 250 Mg Tab, 250 MG PO BID for MOOD, #14 Fluticasone Propionate (Fluticasone Propionate 0.05%) 120 [place]/16 Gm Naspr, 1 SPRAY NA DAILY for ALLERGIES, (Reported) PER NOSTRIL Sertraline Hcl (Sertraline HCl) 50 Mg Tab, 50 MG PO DAILY for MOOD, #7 Scheduled PRN Trazodone HCl (Trazodone HCl) 50 Mg Tab, 50 MG PO QHSP PRN for INSOMNIA for 7 Days, #7 take as needed for insomnia Allergies Coded Allergies: No Known Allergies (Unverified , 01/08/16) Liza Dodge Jan 13, 2017 14:42
== END 2017-01-13 13:30 | disposition home or self-care (01) | DRG 885 ==
LOC: M ED 18:27 → UNDOADMIN 01-05 13:45 → M ED INP 01-05 13:45 → M PSY 01-05 17:24
PROVIDERS: ADMIT Psychiatry & Neurology Psychiatry; ATTEND Psychiatry & Neurology Psychiatry
DX: F33.1 Major depressive disorder, recurrent, moderate (principal); F12.20 Cannabis dependence, uncomplicated; F10.10 Alcohol abuse, uncomplicated; Z91.5 Personal history of self-harm; Z91.14 Patient's other noncompliance with medication regimen; Z79.899 Other long term (current) drug therapy; R51 Headache; J30.9 Allergic rhinitis, unspecified; Z68.35 Body mass index [BMI] 35.0-35.9, adult

== ENCOUNTER 2017-01-15 09:00 | Outpatient (RCR) | payer MEDICAID | END 2017-01-19 | LOC: M OUTALCOH 09:00 | PROVIDERS: ATTEND Psychiatry & Neurology Psychiatry | DX: Z13.9 Encounter for screening, unspecified (principal); F12.20 Cannabis dependence, uncomplicated; F13.20 Sedative, hypnotic or anxiolytic dependence, uncomplicated; Z72.0 Tobacco use ==

== ENCOUNTER → 2017-02-19 | Outpatient (RCR) | payer MEDICAID | LOC: M OUTALCOH 01-21 11:34 | PROVIDERS: ATTEND Psychiatry & Neurology Psychiatry | DX: Z13.9 Encounter for screening, unspecified (principal); F12.20 Cannabis dependence, uncomplicated; F13.20 Sedative, hypnotic or anxiolytic dependence, uncomplicated; Z72.0 Tobacco use ==

== ENCOUNTER 2017-03-19 09:00 | Outpatient (RCR) | payer MEDICAID | END 2017-03-21 | LOC: M OUTALCOH 09:00 | PROVIDERS: ATTEND Psychiatry & Neurology Psychiatry | DX: F12.20 Cannabis dependence, uncomplicated (principal); F13.20 Sedative, hypnotic or anxiolytic dependence, uncomplicated; Z72.0 Tobacco use ==

== ENCOUNTER → 2017-05-12 | Outpatient (CLI) | payer OTHER ==
[2017-05-12 11:54] LABS: BASO % 0.6 % (0.0-1.0); EOS # 0.1 10^3/uL (0.0-0.50); EOS % 1.2 % (0.0-3.0); IMMATURE GRANULOCYTE % 0.5 % (0-0); LYMPH # 2.9 10^3/uL (1.5-6.5); LYMPH % 44.7 % (24.0-44.0); MEAN CORPUSCULAR HEMOGLOBIN 30.5 pg (27.0-33.0); MEAN CORPUSCULAR VOLUME 89.8 fl (80.0-96.0); MONO # 0.6 10^3/uL (0.0-0.8); MONO % 8.8 % (0.0-5.0); NEUTROPHILS # 2.9 10^3/uL (1.8-7.7); NEUTROPHILS % 44.2 % (36.0-66.0); PLATELET COUNT, AUTOMATED 230 10^3/uL (150-450); RED CELL DISTRIBUTION WIDTH 12.4 % (11.5-14.5); WHITE BLOOD COUNT 6.5 10^3/uL (4.0-10.0)
[2017-05-12 12:05] LABS: ALBUMIN 3.8 GM/DL (3.2-5.2); ALBUMIN/GLOBULIN RATIO 1.19 (1.00-1.93); ALKALINE PHOSPHATASE 82 U/L (45-117); ALT/SGPT 75 U/L (12-78); ANION GAP 6 MEQ/L (8-16); AST/SGOT 26 U/L (7-37); BILIRUBIN,TOTAL 0.4 MG/DL (0.2-1.0); BLOOD UREA NITROGEN 16 MG/DL (7-18); CARBON DIOXIDE LEVEL 28 MEQ/L (21-32); CHLORIDE LEVEL 108 MEQ/L (98-107); CHOLESTEROL LEVEL 160 MG/DL (<200); CREATININE FOR GFR 0.95 MG/DL (0.70-1.30); GLUCOSE, FASTING 94 MG/DL (70-105); POTASSIUM SERUM 4.6 MEQ/L (3.5-5.1); SODIUM LEVEL 142 MEQ/L (136-145); TRIGLYCERIDES LEVEL 184 MG/DL (<150)
== END ==
LOC: M LAB 10:43
PROVIDERS: ATTEND Physician Assistant
DX: F33.3 Major depressive disorder, recurrent, severe with psychotic symptoms (principal)

== ENCOUNTER 2017-05-20 10:00 | Outpatient (RCR) | payer MEDICAID | END 2017-05-21 | LOC: M OUTALCOH 10:00 | PROVIDERS: ATTEND Psychiatry & Neurology Psychiatry | DX: F12.20 Cannabis dependence, uncomplicated (principal); F13.20 Sedative, hypnotic or anxiolytic dependence, uncomplicated; Z72.0 Tobacco use ==

== ENCOUNTER 2017-05-29 09:53 | Outpatient (RCR) | payer MEDICAID | END 2017-06-21 | LOC: M OUTALCOH 09:53 | DX: F12.20 Cannabis dependence, uncomplicated (principal); F13.20 Sedative, hypnotic or anxiolytic dependence, uncomplicated; Z72.0 Tobacco use ==

== ENCOUNTER → 2017-06-08 | Outpatient (REF) | payer OTHER ==
[2017-06-08 14:44] LABS: FREE T4 1.09 NG/DL (0.78-1.33)
== END ==
LOC: M SFHCPLAZ 10:29
PROVIDERS: ATTEND Nurse Practitioner Family
DX: F41.9 Anxiety disorder, unspecified (principal); E78.5 Hyperlipidemia, unspecified

== ENCOUNTER → 2017-11-24 | Outpatient (CLI) | payer MEDICAID | LOC: M OUTALCOH 09:23 | DX: F12.20 Cannabis dependence, uncomplicated (principal) ==

== ENCOUNTER 2017-12-03 15:06 | Outpatient (RCR) | payer MEDICAID | END 2017-12-19 | LOC: M OUTALCOH 15:06 | DX: F12.20 Cannabis dependence, uncomplicated (principal); F13.20 Sedative, hypnotic or anxiolytic dependence, uncomplicated; F17.200 Nicotine dependence, unspecified, uncomplicated ==

== ENCOUNTER 2017-12-30 11:40 | Outpatient (RCR) | payer MEDICAID | END 2018-01-19 | LOC: M OUTALCOH 12-31 11:00 | DX: F12.20 Cannabis dependence, uncomplicated (principal); F13.20 Sedative, hypnotic or anxiolytic dependence, uncomplicated; F17.200 Nicotine dependence, unspecified, uncomplicated ==

== ENCOUNTER 2018-01-11 21:45 | Inpatient (IN) | payer MEDICAID ==
[2018-01-11 22:44] LABS: HEMATOCRIT 45.3 % (42.0-52.0); HEMOGLOBIN 15.5 g/dl (13.5-17.5); MEAN CORPUSCULAR HEMOGLOBIN 30.6 pg (27.0-33.0); MEAN CORPUSCULAR HGB CONC 34.2 g/dl (32.0-36.5); MEAN CORPUSCULAR VOLUME 89.5 fl (80.0-96.0); PLATELET COUNT, AUTOMATED 222 10^3/uL (150-450); RED BLOOD COUNT 5.06 10^6/uL (4.30-6.10); RED CELL DISTRIBUTION WIDTH 12.1 % (11.5-14.5); WHITE BLOOD COUNT 8.1 10^3/uL (4.0-10.0)
[2018-01-11 22:49] LABS: AMPHETAMINES LEVEL URINE NEGATIVE (NEGATIVE); BARBITURATES URINE NEGATIVE (NEGATIVE); BENZODIAZEPINES URINE NEGATIVE (NEGATIVE); CANNABINOIDS URINE NEGATIVE (NEGATIVE); COCAINE METABOLITE URINE NEGATIVE (NEGATIVE); METHADONE URINE NEGATIVE (NEGATIVE); OPIATES URINE NEGATIVE (NEGATIVE); PHENCYCLIDINE URINE NEGATIVE (NEGATIVE)
[2018-01-11 23:11] LABS: ALBUMIN 3.9 GM/DL (3.2-5.2); ALBUMIN/GLOBULIN RATIO 1.18 (1.00-1.93); ALKALINE PHOSPHATASE 80 U/L (45-117); ALT/SGPT 80 U/L (12-78); ANION GAP 9 MEQ/L (8-16); AST/SGOT 38 U/L (7-37); BILIRUBIN,DIRECT < 0.1 MG/DL (0.0-0.2); BILIRUBIN,TOTAL 0.3 MG/DL (0.2-1.0); BLOOD UREA NITROGEN 19 MG/DL (7-18); CALCIUM LEVEL 8.8 MG/DL (8.5-10.1); CARBON DIOXIDE LEVEL 27 MEQ/L (21-32); CHLORIDE LEVEL 108 MEQ/L (98-107); CREATININE FOR GFR 1.13 MG/DL (0.70-1.30); GLUCOSE, FASTING 108 MG/DL (70-100); POTASSIUM SERUM 3.9 MEQ/L (3.5-5.1); SALICYLATE LEVEL 1.8 MG/DL (5.0-30.0); SODIUM LEVEL 144 MEQ/L (136-145); TOTAL PROTEIN 7.2 GM/DL (6.4-8.2); VALPROIC ACID (DEPAKOTE) 13.3 UG/ML (50.0-100.0)
[2018-01-11 23:20] LABS: ACETAMINOPHEN LEVEL < 2.0 UG/ML (10.0-30.0); ETHYL ALCOHOL (ETHANOL) < 0.003 % (0.000-0.010)
[2018-01-12] MEDS ORDERED: MAALOX 30 ML SUSP *UDC PO
[2018-01-12] MEDS ORDERED: traZODone 50 MG TAB PO
[2018-01-12] MEDS ORDERED: NICOTINE 21MG/24HR 1 EA TRANSDERMAL TD
[2018-01-12] MEDS ORDERED: MOM 30ML SUSPENSION UDC PO
[2018-01-12] MEDS: ACETAMINOPHEN TAB 650MG DOSE (2X325MG) PO (02:25)
[2018-01-12] MEDS ORDERED: FLUTICASONE PROP 0.05% NASAL SPRAY 16 GM (FLONASE) (09:15)
[2018-01-12] MEDS ORDERED: CETIRIZINE (ZyrTEC) 10 MG TAB PO (09:15)
[2018-01-12] MEDS: SERTRALINE HCL 50 MG TAB PO (11:28)
[2018-01-12] MEDS: ARIPiprazole 10 MG TAB PO (21:10)
[2018-01-13 07:46] LABS: ALBUMIN 3.8 GM/DL (3.2-5.2); ALBUMIN/GLOBULIN RATIO 1.15 (1.00-1.93); ALKALINE PHOSPHATASE 80 U/L (45-117); ALT/SGPT 66 U/L (12-78); ANION GAP 6 MEQ/L (8-16); AST/SGOT 27 U/L (7-37); BILIRUBIN,TOTAL 0.5 MG/DL (0.2-1.0); BLOOD UREA NITROGEN 15 MG/DL (7-18); CALCIUM LEVEL 8.9 MG/DL (8.5-10.1); CARBON DIOXIDE LEVEL 30 MEQ/L (21-32); CHLORIDE LEVEL 110 MEQ/L (98-107); CREATININE FOR GFR 1.09 MG/DL (0.70-1.30); GLUCOSE, FASTING 95 MG/DL (70-100); POTASSIUM SERUM 4.5 MEQ/L (3.5-5.1); SODIUM LEVEL 146 MEQ/L (136-145); TOTAL PROTEIN 7.1 GM/DL (6.4-8.2)
[2018-01-13] MEDS: SERTRALINE HCL 50 MG TAB PO (08:52)
[2018-01-13 11:39] LABS: HEPATITIS B SURFACE ANTIGEN NEGATIVE (NEGATIVE)
[2018-01-13 12:06] LABS: HEPATITIS C VIRUS ABY INDEX 0.3 INDEX (<0.8)
[2018-01-13 12:06] LABS: HEPATITIS B CORE ANTIBODY IGM NEGATIVE (NEGATIVE)
[2018-01-13 12:09] LABS: HEPATITIS A ANTIBODY IGM NEGATIVE (NEGATIVE)
[2018-01-13] MEDS: ACETAMINOPHEN TAB 650MG DOSE (2X325MG) PO ×2 (14:42→22:17)
[2018-01-13] MEDS: ARIPiprazole 10 MG TAB PO (20:48)
[2018-01-14 07:21] LABS: ANION GAP 6 MEQ/L (8-16); BLOOD UREA NITROGEN 16 MG/DL (7-18); CALCIUM LEVEL 8.9 MG/DL (8.5-10.1); CARBON DIOXIDE LEVEL 30 MEQ/L (21-32); CHLORIDE LEVEL 109 MEQ/L (98-107); GLUCOSE, FASTING 99 MG/DL (70-100); POTASSIUM SERUM 4.4 MEQ/L (3.5-5.1); SODIUM LEVEL 145 MEQ/L (136-145)
[2018-01-14] MEDS: SERTRALINE HCL 50 MG TAB PO (08:32)
== END 2018-01-14 11:50 | disposition home or self-care (01) | DRG 885 ==
LOC: M ED INP 23:58 → M PSY 01-12 01:42 → M ED 21:45
PROVIDERS: Psychiatry & Neurology Psychiatry
DX: F31.9 Bipolar disorder, unspecified (principal); R45.851 Suicidal ideations; Z91.14 Patient's other noncompliance with medication regimen; Z91.5 Personal history of self-harm; G47.00 Insomnia, unspecified; F17.210 Nicotine dependence, cigarettes, uncomplicated; R51 Headache; J30.9 Allergic rhinitis, unspecified; R74.0 Nonspecific elevation of levels of transaminase and lactic acid dehydrogenase [LDH]; Z79.899 Other long term (current) drug therapy

== ENCOUNTER 2018-02-26 11:27 | Outpatient (RCR) | payer MEDICAID | END 2018-03-21 | LOC: M OUTALCOH 03-04 11:00 | DX: F12.20 Cannabis dependence, uncomplicated (principal); F13.20 Sedative, hypnotic or anxiolytic dependence, uncomplicated; F17.200 Nicotine dependence, unspecified, uncomplicated ==

== ENCOUNTER 2018-03-25 19:52 | Inpatient (IN) | payer MEDICAID, OTHER ==
[2018-03-25 20:27] LABS: HEMATOCRIT 46.2 % (42.0-52.0); HEMOGLOBIN 15.8 g/dl (13.5-17.5); MEAN CORPUSCULAR HEMOGLOBIN 30.8 pg (27.0-33.0); MEAN CORPUSCULAR HGB CONC 34.2 g/dl (32.0-36.5); MEAN CORPUSCULAR VOLUME 90.1 fl (80.0-96.0); PLATELET COUNT, AUTOMATED 211 10^3/uL (150-450); RED BLOOD COUNT 5.13 10^6/uL (4.30-6.10); RED CELL DISTRIBUTION WIDTH 12.2 % (11.5-14.5); WHITE BLOOD COUNT 8.1 10^3/uL (4.0-10.0)
[2018-03-25 21:08] LABS: ACETAMINOPHEN LEVEL < 2.0 UG/ML (10.0-30.0); ALBUMIN 3.8 GM/DL (3.2-5.2); ALBUMIN/GLOBULIN RATIO 1.27 (1.00-1.93); ALKALINE PHOSPHATASE 87 U/L (45-117); ALT/SGPT 49 U/L (12-78); ANION GAP 9 MEQ/L (8-16); AST/SGOT 27 U/L (7-37); BILIRUBIN,DIRECT 0.1 MG/DL (0.0-0.2); BILIRUBIN,TOTAL 0.3 MG/DL (0.2-1.0); BLOOD UREA NITROGEN 15 MG/DL (7-18); CARBON DIOXIDE LEVEL 25 MEQ/L (21-32); CHLORIDE LEVEL 110 MEQ/L (98-107); CREATININE FOR GFR 0.91 MG/DL (0.70-1.30); ETHYL ALCOHOL (ETHANOL) 0.004 % (0.000-0.010); GLUCOSE, FASTING 94 MG/DL (70-100); POTASSIUM SERUM 4.3 MEQ/L (3.5-5.1); SALICYLATE LEVEL < 1.7 MG/DL (5.0-30.0); SODIUM LEVEL 144 MEQ/L (136-145); TOTAL PROTEIN 6.8 GM/DL (6.4-8.2)
[2018-03-25 21:38] LABS: AMPHETAMINES LEVEL URINE NEGATIVE (NEGATIVE); BARBITURATES URINE NEGATIVE (NEGATIVE); BENZODIAZEPINES URINE NEGATIVE (NEGATIVE); CANNABINOIDS URINE NEGATIVE (NEGATIVE); COCAINE METABOLITE URINE NEGATIVE (NEGATIVE); METHADONE URINE NEGATIVE (NEGATIVE); OPIATES URINE NEGATIVE (NEGATIVE); PHENCYCLIDINE URINE NEGATIVE (NEGATIVE)
[2018-03-25] MEDS ORDERED: MAALOX 30 ML SUSP *UDC PO (22:00)
[2018-03-25] MEDS ORDERED: ACETAMINOPHEN TAB 650MG DOSE (2X325MG) PO (22:00)
[2018-03-25] MEDS ORDERED: MOM 30ML SUSPENSION UDC PO (22:00)
[2018-03-25] MEDS ORDERED: traZODone 50 MG TAB PO (22:00)
[2018-03-26] MEDS ORDERED: CETIRIZINE (ZyrTEC) 10 MG TAB PO (11:30)
[2018-03-26] MEDS: FLUTICASONE PROP 0.05% NASAL SPRAY 16 GM (FLONASE) (11:59)
[2018-03-26] MEDS: SERTRALINE 100 MG TAB PO (12:48)
[2018-03-26] MEDS: ARIPiprazole 10 MG TAB PO (12:48)
[2018-03-27] MEDS: SERTRALINE 100 MG TAB PO (09:19)
[2018-03-27] MEDS: ARIPiprazole 10 MG TAB PO (09:19)
[2018-03-27] MEDS: FLUTICASONE PROP 0.05% NASAL SPRAY 16 GM (FLONASE) (09:19)
[2018-03-27] MEDS: hydrOXYzine 50 MG TAB PO ×2 (12:17→22:33)
[2018-03-28] MEDS: FLUTICASONE PROP 0.05% NASAL SPRAY 16 GM (FLONASE) (08:11)
[2018-03-28] MEDS: SERTRALINE 100 MG TAB PO (08:11)
[2018-03-28] MEDS: ARIPiprazole 10 MG TAB PO (21:10)
[2018-03-29] MEDS: FLUTICASONE PROP 0.05% NASAL SPRAY 16 GM (FLONASE) (09:44)
[2018-03-29] MEDS: SERTRALINE 100 MG TAB PO (09:44)
== END 2018-03-29 13:10 | disposition home or self-care (01) | DRG 753 ==
LOC: M PSY 03-26 00:40 → M ED 19:52 → M ED INP 21:54
DX: F31.9 Bipolar disorder, unspecified (principal); F60.4 Histrionic personality disorder; F12.10 Cannabis abuse, uncomplicated; Z76.5 Malingerer [conscious simulation]; Z91.5 Personal history of self-harm; J30.9 Allergic rhinitis, unspecified; F17.210 Nicotine dependence, cigarettes, uncomplicated; R51 Headache; Z79.899 Other long term (current) drug therapy

== ENCOUNTER 2018-04-07 13:52 | Outpatient (RCR) | payer MEDICAID | END 2018-04-21 | LOC: M OUTALCOH 13:52 | DX: F12.20 Cannabis dependence, uncomplicated (principal); F13.20 Sedative, hypnotic or anxiolytic dependence, uncomplicated; F17.200 Nicotine dependence, unspecified, uncomplicated ==

== ENCOUNTER 2018-04-22 09:33 | Outpatient (RCR) | payer MEDICAID | END 2018-05-21 | LOC: M OUTALCOH 04-29 11:00 | DX: F12.20 Cannabis dependence, uncomplicated (principal); F13.20 Sedative, hypnotic or anxiolytic dependence, uncomplicated; F17.200 Nicotine dependence, unspecified, uncomplicated ==

== ENCOUNTER → 2018-06-01 | Outpatient (CLI) | payer MEDICAID ==
[2018-06-01 10:26] LABS: BASO # 0.1 10^3/uL (0.0-0.2); BASO % 0.7 % (0.0-1.0); EOS # 0.2 10^3/uL (0.0-0.50); EOS % 2.3 % (0.0-3.0); HEMATOCRIT 46.4 % (42.0-52.0); IMMATURE GRANULOCYTE % 0.3 % (0-3.0); LYMPH # 2.7 10^3/uL (1.5-6.5); LYMPH % 38.8 % (24.0-44.0); MEAN CORPUSCULAR HEMOGLOBIN 30.1 pg (27.0-33.0); MEAN CORPUSCULAR HGB CONC 34.5 g/dl (32.0-36.5); MEAN CORPUSCULAR VOLUME 87.2 fl (80.0-96.0); MONO # 0.7 10^3/uL (0.0-0.8); MONO % 9.3 % (0.0-5.0); NEUTROPHILS # 3.4 10^3/uL (1.8-7.7); NEUTROPHILS % 48.6 % (36.0-66.0); PLATELET COUNT, AUTOMATED 223 10^3/uL (150-450); RED BLOOD COUNT 5.32 10^6/uL (4.30-6.10); RED CELL DISTRIBUTION WIDTH 12.2 % (11.5-14.5)
[2018-06-01 10:49] LABS: ALBUMIN 3.6 GM/DL (3.2-5.2); ALBUMIN/GLOBULIN RATIO 1.09 (1.00-1.93); ALKALINE PHOSPHATASE 92 U/L (45-117); ALT/SGPT 47 U/L (12-78); ANION GAP 5 MEQ/L (8-16); AST/SGOT 24 U/L (7-37); BILIRUBIN,TOTAL 0.6 MG/DL (0.2-1.0); BLOOD UREA NITROGEN 14 MG/DL (7-18); CALCIUM LEVEL 8.6 MG/DL (8.5-10.1); CARBON DIOXIDE LEVEL 28 MEQ/L (21-32); CHLORIDE LEVEL 109 MEQ/L (98-107); CHOLESTEROL LEVEL 147 MG/DL (<200); CHOLESTEROL RISK RATIO 7.736 (<5); CREATININE FOR GFR 1.01 MG/DL (0.70-1.30); GLUCOSE, FASTING 96 MG/DL (70-100); HDL CHOLESTEROL 19 MG/DL (>40); LDL CHOLESTEROL 104 MG/DL (<100); NON-HDL-C 128 MG/DL; POTASSIUM SERUM 4.5 MEQ/L (3.5-5.1); SODIUM LEVEL 142 MEQ/L (136-145); TOTAL PROTEIN 6.9 GM/DL (6.4-8.2); TRIGLYCERIDES LEVEL 122 MG/DL (<150)
[2018-06-01 12:39] LABS: ESTIMATED AVERAGE GLUCOSE 100 MG/DL (60-110); HEMOGLOBIN A1c 5.1 %
== END ==
LOC: M LAB 09:49
DX: F33.1 Major depressive disorder, recurrent, moderate (principal)
CPT/HCPCS: 80053

== ENCOUNTER 2018-06-17 12:37 | Outpatient (RCR) | payer MEDICAID ==
[~2018-06-17 12:37] MED LIST changes: -ALL10TAB27 PO; +ALL10TAB28 PO; +DEPA500T2 PO; +HYDRO50TAB PO; +SERT-138 PO; -TRAZ-136 PO; +TRAZ-160 PO; +TRAZ-163 PO; -TRAZ50TA11 PO; +ZOLO50TA PO
== END 2018-06-21 ==
LOC: M OUTALCOH 12:37
PROVIDERS: ATTEND Psychiatry & Neurology Psychiatry
DX: F12.20 Cannabis dependence, uncomplicated (principal); F13.20 Sedative, hypnotic or anxiolytic dependence, uncomplicated; F17.200 Nicotine dependence, unspecified, uncomplicated

== ENCOUNTER 2018-06-28 14:55 | Outpatient (RCR) | payer MEDICAID ==
[2018-06-29] MEDS ORDERED: TRAZ-160 PO (19:18)
[2018-06-29] MEDS ORDERED: HYDR50TA70 PO (19:18)
[2018-06-29] MEDS ORDERED: SERT-138 PO (19:18)
[2018-07-02] MEDS ORDERED: BACI50OI TOP (10:41)
[2018-07-02] MEDS ORDERED: TRAZO50TA PO (10:41)
[2018-07-02] MEDS ORDERED: SERT-138 PO (10:41)
[2018-07-02] MEDS ORDERED: ARIP5TA PO (10:41)
[2018-07-06] MEDS ORDERED: ARIP5TA PO (17:44)
[2018-07-14] MEDS ORDERED: DIPH25CA PO (10:08)
[2018-07-14] MEDS ORDERED: TRAZO50TA PO (10:08)
== END 2018-07-22 ==
LOC: M OUTALCOH 14:55
PROVIDERS: ATTEND Psychiatry & Neurology Psychiatry
DX: F12.20 Cannabis dependence, uncomplicated (principal); F13.20 Sedative, hypnotic or anxiolytic dependence, uncomplicated; F17.200 Nicotine dependence, unspecified, uncomplicated

== ENCOUNTER 2018-07-06 13:33 | Inpatient (IN) | payer MEDICAID, OTHER ==
[~2018-07-06] VITALS: Ht 177.8 cm; Wt 113.6 kg
[~2018-07-06 13:33] MED LIST changes: +ARIP5TA PO; +BACI50OI TOP
[2018-07-06] MEDS ORDERED: ALPRAZolam 0.5 MG TAB PO ONE (14:00)
[2018-07-06 14:51] LABS: HEMATOCRIT 44.3 % (42.0-52.0); HEMOGLOBIN 15.4 g/dl (13.5-17.5); MEAN CORPUSCULAR HEMOGLOBIN 30.3 pg (27.0-33.0); MEAN CORPUSCULAR HGB CONC 34.8 g/dl (32.0-36.5); MEAN CORPUSCULAR VOLUME 87.2 fl (80.0-96.0); PLATELET COUNT, AUTOMATED 220 10^3/uL (150-450); RED BLOOD COUNT 5.08 10^6/uL (4.30-6.10); WHITE BLOOD COUNT 8.6 10^3/uL (4.0-10.0)
[2018-07-06 15:15] LABS: AMPHETAMINES LEVEL URINE NEGATIVE (NEGATIVE); BARBITURATES URINE NEGATIVE (NEGATIVE); BENZODIAZEPINES URINE POSITIVE (NEGATIVE); CANNABINOIDS URINE NEGATIVE (NEGATIVE); COCAINE METABOLITE URINE NEGATIVE (NEGATIVE); METHADONE URINE NEGATIVE (NEGATIVE); OPIATES URINE NEGATIVE (NEGATIVE); PHENCYCLIDINE URINE NEGATIVE (NEGATIVE)
[2018-07-06 15:39] LABS: ALT/SGPT 45 U/L (12-78); BILIRUBIN,DIRECT 0.2 MG/DL (0.0-0.2); BILIRUBIN,TOTAL 0.6 MG/DL (0.2-1.0); BLOOD UREA NITROGEN 14 MG/DL (7-18); CARBON DIOXIDE LEVEL 23 MEQ/L (21-32); CHLORIDE LEVEL 109 MEQ/L (98-107); CREATININE FOR GFR 0.94 MG/DL (0.70-1.30); GLUCOSE, FASTING 92 MG/DL (70-100); POTASSIUM SERUM 3.9 MEQ/L (3.5-5.1); SALICYLATE LEVEL < 1.7 MG/DL (5.0-30.0); SODIUM LEVEL 144 MEQ/L (136-145); TOTAL PROTEIN 7.2 GM/DL (6.4-8.2)
[2018-07-06 15:40] LABS: ACETAMINOPHEN LEVEL < 2.0 UG/ML (10.0-30.0); ETHYL ALCOHOL (ETHANOL) < 0.003 % (0.000-0.010)
[2018-07-06] MEDS ORDERED: ARIP5TA PO (17:44)
[2018-07-07] MEDS ORDERED: ACETAMINOPHEN TAB 650MG DOSE (2X325MG) PO PRN (03:00)
[2018-07-07] MEDS ORDERED: MOM 30ML SUSPENSION UDC PO PRN (03:00)
[2018-07-07] MEDS ORDERED: traZODone 50 MG TAB PO PRN (03:00)
[2018-07-07] MEDS ORDERED: MAALOX 30 ML SUSP *UDC PO PRN (03:00)
[2018-07-07 04:35] VITALS: BP 134/79
[2018-07-07] MEDS: SERTRALINE 100 MG TAB PO SCH (08:13)
[2018-07-07] MEDS: diphenhydrAMINE 25 MG CAP PO PRN ×2 (08:38→15:33)
--- NOTE | 2018-07-07 11:03 | HPEPDOC ---
[facility] Medical History & Physical Date of Admission Jul 06, 2018 History and Physical PCP:DINA Major SHEEPSKIN PICKLER ATTENDING: Dr. Emily Rai HPI: 22yoM recently admitted to [facility] 06/29/18-07/02/18 readmitted to [facility] 07/07/18 for schizoaffective disorder, being medically examined today. Pt has no concerns at this time. He is noted to have lacerations to the right forearm and bilateral lower extremities which the patient states he did prior to his last admission. They appear to be healing. The patient reports noissues since his discharge 07/02/18. The patient states "I just went crazy" after his recent [facility] discharge. Pt states he takes Depakote for mood. Denies any fevers, chills, weakness, fatigue, POTTER, CP, SOB, cough, palpitations, abdominal pain, N/V/D or changes in bowel or bladder habits. PMHx: Anxiety depression H/O SI/SA, cutting. ADHD Self harm insomnia allergic rhinitis H/O Headache PSHX: Tonsillectomy/adenoidectomy SOCHX: Resides in: [facility]. Marital Status: Single Kids: None Employment: Unemployed Tobacco use: 1/2 ppd ETOH: Few drinks per month Illicit Drugs: History of Marijuana IV Drug Use: Denies Tattoos done unprofessionally: Denies FAMHX: Mother: Alive, well Father: , suicide at age 23 Siblings: Alive, well Children: None Unexpected deaths due to medical reasons: None. ROS: As noted in HPI, otherwise 11pt ROS of systems reviewed and unremarkable PE: GEN: 22 yo M, appears stated age. Well-nourished, well developed. No acute distress. Alert and oriented x 3. Affect is flat, avoids eye contact. HEENT: Normocephalic, atraumatic. Pupils are equal, round, and reactive to light. Extraocular movements are intact. No nystagmus appreciated. Sclera are nonicteric. Conjunctiva without injection. Nose midline. Nasal turbinates without bogginess. EACs both patent BL. TMs both visualized and sarah with good cone of light, no bulging or erythema. No facial asymmetry. Moist mucous membranes. Dentition fair. Pharynx pink and moist, no cobblestoning. Neck supple, trachea midline. No lymphadenopathy or thyromegaly appreciated. CHEST: Regular rate and rhythm, +S1, +S2 LUNGS: Clear to auscultation bilaterally. No wheezes, rales, or rhonchi. Breathing appears symmetric and easy. Patient is speaking in full sentences. No accessory muscle use. ABD: Round, soft, non-tender, non-distended. +Bowel sounds throughout. No rebound or guarding. No costovertebral angle tenderness. EXT: Pulses 2+ bilaterally dorsalis pedis and radial. No lower extremity edema appreciated. SKIN: [place], dry, warm. Capillary refill <2sec. No rashes. Recent Superficial lacerations right forearm noted. Healed lacerations are noted to the bilateral forearms. NEURO: Alert and oriented x 3. Cranial nerves III-XII are intact. No focal deficits appreciated. EKG: SINUS RHYTHM Electronically Signed On 01-14-2018 17:35:23 EDT by Giovanni Calvo A&P: 22yoM admitted to [facility] for unspecified depressive disorder 1. Psych. Plan per Psychiatry. EKG pending. 2. Headache. Continue Tylenol as needed. 3. Follow up with PCP on discharge. [facility]. 4. Allergic rhinitis. Continue Zyrtec 10 mg daily and Flonase daily. Continue Flonase daily. 5. Superficial lacerations to right upper extremity. Keep the areas clean and dry. Dry dressing if needed. 6. Staff member Tre present throughout exam. Vital Signs Vital Signs Date Time Temp Pulse Resp B/P (MAP) Pulse Ox O2 Delivery O2 Flow Rate FiO2 07/07/18 04:35 97.6 74 20 134/79 (97) Room Air 07/07/18 04:19 99 Laboratory Data Labs 24H Laboratory Tests 2 07/06/18 14:33: Nucleated Red Blood Cells % (auto) 0.0, Anion Gap 12, Calcium Level 9.0, Aspartate Amino Transf (AST/SGOT) 27, Alanine Aminotransferase (ALT/SGPT) 45, Alkaline Phosphatase 88, Total Bilirubin 0.6, Direct Bilirubin 0.2, Total Protein 7.2, Albumin 4.0, Albumin/Globulin Ratio 1.25, Thyroid Stimulating Hormone (TSH) 1.870, Salicylates Level < 1.7L, Acetaminophen Level < 2.0L, Ethyl Alcohol Level < 0.003 07/06/18 14:35: Urine Amphetamines Screen NEGATIVE, Urine Benzodiazepines Screen POSITIVEH, Urine Opiates Screen NEGATIVE, Urine Methadone Screen NEGATIVE, Urine Barbiturates Screen NEGATIVE, Urine Phencyclidine Screen NEGATIVE, Urine Cocaine Metabolite Screen NEGATIVE, Urine Cannabinoids Screen NEGATIVE CBC/BMP Laboratory Tests 07/06/18 14:33 Red Blood Count 5.08, Mean Corpuscular Volume 87.2, Mean Corpuscular Hemoglobin 30.3, Mean Corpuscular Hemoglobin Concent 34.8, Red Cell Distribution Width 12.2 Home Medications Scheduled Aripiprazole (Aripiprazole) 5 Mg Tab, 5 MG PO QHS Fluticasone Propionate (Flonase Allergy Relief) 50 Mcg/Act Spr, 2 SPRAYS NA DAILY Sertraline HCl (Sertraline HCl) 100 Mg Tab, 100 MG PO DAILY for depression Scheduled PRN Cetirizine HCl (Cetirizine HCl) 10 Mg Tab, 10 MG PO DAILY PRN for ALLERGIES Hydroxyzine HCl (Hydroxyzine HCl) 50 Mg Tab, 50 MG PO Q6H PRN for ANXIETY/AGITATION Allergies Coded Allergies: No Known Allergies (Unverified , 06/29/18) Brina Mora Jul 07, 2018 11:03
[2018-07-07] MEDS ORDERED: CETIRIZINE (ZyrTEC) 10 MG TAB PO PRN (11:30)
[2018-07-07] MEDS: FLUTICASONE PROP 0.05% NASAL SPRAY 16 GM (FLONASE) SCH (12:25)
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
[2018-07-07 18:00] VITALS: BP 128/74
[2018-07-07] MEDS: hydrOXYzine 50 MG TAB PO PRN (18:34)
[2018-07-08 06:30] VITALS: BP 108/58
--- NOTE | 2018-07-08 07:25 | ECGEPIP ---
Stationary ECG Study [facility] ED Test Date: 2018-07-06 Pat Name: CRISTOFER KENNEDY Department: Room: [place] [address] Gender: M Inspector Shells: angela : 1995 Requested By: LACIE WALTERS Order Number: [id number] Reading MD: Cirilo Moise Measurements Intervals [place] Rate: 67 P: 29 [place]: 166 QRS: 49 QRSD: 92 T: 47 QT: 346 QTc: 365 Interpretive Statements SINUS RHYTHM WITH MARKED SINUS ARRHYTHMIA INCOMPLETE RIGHT BUNDLE BRANCH BLOCK SIMILAR TO 01/12/18 Electronically Signed On 07-08-2018 7:25:06 EST by Cirilo Moise
[2018-07-08 07:49] LABS: BLOOD UREA NITROGEN 13 MG/DL (7-18); CARBON DIOXIDE LEVEL 24 MEQ/L (21-32); CHLORIDE LEVEL 108 MEQ/L (98-107); CREATININE FOR GFR 1.04 MG/DL (0.70-1.30); GLUCOSE, FASTING 114 MG/DL (70-100); POTASSIUM SERUM 4.3 MEQ/L (3.5-5.1); SODIUM LEVEL 142 MEQ/L (136-145)
[2018-07-08] MEDS: FLUTICASONE PROP 0.05% NASAL SPRAY 16 GM (FLONASE) SCH (08:11)
[2018-07-08] MEDS: SERTRALINE 100 MG TAB PO SCH (08:11)
[2018-07-08 18:00] VITALS: BP 127/60
[2018-07-08] MEDS: hydrOXYzine 50 MG TAB PO PRN (23:10)
[2018-07-09 06:09] VITALS: BP 122/56
[2018-07-09] MEDS: FLUTICASONE PROP 0.05% NASAL SPRAY 16 GM (FLONASE) SCH (08:12)
[2018-07-09] MEDS: SERTRALINE 100 MG TAB PO SCH (08:12)
[2018-07-09 18:00] VITALS: BP 135/69
[2018-07-09] MEDS: OLANZapine ORAL DISINTEGRATING TAB 5MG PO PRN (22:57)
[2018-07-10 06:47] VITALS: BP 123/57
[2018-07-10] MEDS: FLUTICASONE PROP 0.05% NASAL SPRAY 16 GM (FLONASE) SCH (09:00)
[2018-07-10] MEDS: SERTRALINE 100 MG TAB PO SCH (09:25)
--- NOTE | 2018-07-10 12:16 | MHIPNPDOC ---
[facility] Progress Note Progress Note DATE OF SERVICE: 07/09/18 HISTORY: CHIEF COMPLAINT: SUICIDAL IDEATION AND SUBSTANCE ABUSE HISTORY OF PRESENT ILLNESS: Patient is a 22-year-old male, who, as per ED report: "Patient arrived with police, following concerns from several people in community. Police found him in front of the [facility], holding a knife to his neck & stating that he was going to kill himself. He reports stuggling with the grief of a friend who in [place] recently. Review of his [facility] D/C Summary on 07/02 noted that he had been pressing for D/C in order to attend the for that friend. He states that he has been unable to sleep or stop thinking about that . He admits that he used Xanax (by inhaling it) last night, and although acknowledged his substance abuse hx, alleges that last night's use was a means to try & cope with his grief. At this time he continues to express + SI & is unable to CFS for D/C". VITAL SIGNS: See below. NEW TEST RESULTS: See below CURRENT MEDICATIONS: See below. MENTAL STATUS EXAMINATION: General appearance: Patient is a 22-year old male, who is alert, dressed in hospital clothes, sitting in his room,found in the lounge after breakfast, inteviewed in his room Speech: fluent, spontaneous, normal rate, tone and volume. Thought processes: linear, coherent. Thought content: Continues to report guilty feelings about his friend's Abstract reasoning and computation: fair. Description of associations: good. Description of abnormal or psychotic thoughts: Reports SI due to guilt, denies HI, denies AV hallucinations Judgment: poor. Insight: poor. Orientation: x 3. Recent and remote memory: intact. Attention span and concentration: good. Fund of knowledge: below average. Mood: "I feel depressed" Affect: Constricted/flat DIAGNOSES: 1. Major Depressive d/o 2. Schizoaffective d/o by h/o 3. substance abuse ASSESSMENT: Patient continues to report guilty feelings about his friend's . Unable to say if patient is being honest about all this zaga related to his friend's . He says his friend told him a long time ago that he wanted to belong to a gang, so, he told him to go to the [place] and look for patient's cousin who belongs to a gang (the [employer]). According to him his friend was accepted in the gang and he was a drug dealer and as a consequence of his lifestyle, he got killed. The patient seems to have low intellectual functioning, I'm not sure if everything he says is to get attention or if it's true, but certainly his affect is not congruent to what he says, neither his previous presentations have been. He has psychomotor retardtion and he says before he came his appetite was poor, but now he can't stop eating. His major problem is substance abuse, I think. He is willing to go to an inpatient rehab, because he says that he is aware that this is his major problem. Motor Equipment Commanding Officer, Patrice Rebollar has been working with him to find a Rehab (inpatient). MANAGEMENT PLAN: . TIME SPENT: 20 minutes. Vital Signs Vital Signs Date Time Temp Pulse Resp B/P (MAP) Pulse Ox O2 Delivery O2 Flow Rate FiO2 07/10/18 09:25 Room Air 07/10/18 06:47 97.2 57 14 123/57 (79) 07/07/18 04:19 99 Current Medications Current Medications Acetaminophen (Tylenol Tab) 650 mg Q6HP PRN PO HEADACHE or DISCOMFORT; Start 07/07/18 at 03:00 Al Hydrox/Mg Hydrox/Simethicone (Mylanta) 30 ml Q4HP PRN PO HEARTBURN/INDIGESTION; Start 07/07/18 at 03:00 Aripiprazole (AbiLIFY) 5 mg QHS PO Last administered on 07/09/18at 21:38; Start 07/07/18 at 21:00 Cetirizine HCl (ZyrTEC) 10 mg DAILY PRN PO ALLERGIES; Start 07/07/18 at 11:30 Diphenhydramine HCl (Benadryl) 25 mg Q6HP PRN PO ANXIETY/AGITATION Last administered on 07/07/18at 15:33; Start 07/07/18 at 03:00 Fluticasone Propionate (Flonase 0.05% Nasal [place]) 2 spray DAILY NA Last administered on 07/09/18at 08:12; Start 07/07/18 at 09:00 Home Med (Med Rec Complete!) ASDIRECTED XX ; Start 07/06/18 at 17:45; Stop 07/06/18 at 17:45; Status DC Hydroxyzine HCl (Atarax) 50 mg Q6HP PRN PO ANXIETY/AGITATION Last administered on 07/08/18at 23:10; Start 07/07/18 at 03:00; Stop 07/09/18 at 03:00; Status DC Magnesium Hydroxide (Milk Of Magnesia) 30 ml DAILYPRN PRN PO CONSTIPATION; Start 07/07/18 at 03:00 Olanzapine (ZyPREXA ZYDIS) 5 mg Q4HP PRN PO AGITATION Last administered on 07/09/18at 22:57; Start 07/07/18 at 03:00 Sertraline HCl (Zoloft) 100 mg DAILY PO Last administered on 07/10/18at 09:25; Start 07/07/18 at 09:00 Trazodone HCl (Desyrel) 50 mg QHSP PRN PO INSOMNIA; Start 07/07/18 at 03:00 Allergies Coded Allergies: No Known Allergies (Unverified , 06/29/18) CYDNEY CABRAL MD Jul 10, 2018 12:07
[2018-07-10 18:00] VITALS: BP 124/60
[2018-07-10] MEDS: OLANZapine ORAL DISINTEGRATING TAB 5MG PO PRN (22:52)
[2018-07-11 06:44] VITALS: BP 101/53
[2018-07-11] MEDS: SERTRALINE 100 MG TAB PO SCH (11:26)
[2018-07-11] MEDS: FLUTICASONE PROP 0.05% NASAL SPRAY 16 GM (FLONASE) SCH (11:26)
[2018-07-11 18:13] VITALS: BP 133/71
[2018-07-11] MEDS: OLANZapine ORAL DISINTEGRATING TAB 5MG PO PRN (22:44)
[2018-07-12 06:50] VITALS: BP 121/66
[2018-07-12] MEDS: SERTRALINE 100 MG TAB PO SCH (09:25)
[2018-07-12] MEDS: FLUTICASONE PROP 0.05% NASAL SPRAY 16 GM (FLONASE) SCH (09:25)
[2018-07-12 18:00] VITALS: BP 134/80
--- NOTE | 2018-07-12 19:20 | MHIPNPDOC ---
[facility] Progress Note Progress Note DATE OF SERVICE: 07/12/18 HISTORY: CHIEF COMPLAINT: SUICIDAL IDEATION AND SUBSTANCE ABUSE HISTORY OF PRESENT ILLNESS: Patient is a 22-year-old male, who, as per ED report: "Patient arrived with police, following concerns from several people in community. Police found him in front of the [facility], holding a knife to his neck & stating that he was going to kill himself. He reports stuggling with the grief of a friend who in [place] recently. Review of his [facility] D/C Summary on 07/02 noted that he had been pressing for D/C in order to attend the for that friend. He states that he has been unable to sleep or stop thinking about that . He admits that he used Xanax (by inhaling it) last night, and although acknowledged his substance abuse hx, alleges that last night's use was a means to try & cope with his grief. At this time he continues to express + SI & is unable to CFS for D/C". VITAL SIGNS: See below. NEW TEST RESULTS: See below CURRENT MEDICATIONS: See below. MENTAL STATUS EXAMINATION: General appearance: Patient is a 22-year old male, who is alert, dressed in hospital clothes, sitting in his room,found in the lounge after breakfast, inteviewed in his room Speech: fluent, spontaneous, normal rate, tone and volume. Thought processes: linear, coherent. Thought content: Continues to report guilty feelings about his friend's Abstract reasoning and computation: fair. Description of associations: good. Description of abnormal or psychotic thoughts: Reports SI due to guilt, denies HI, denies AV hallucinations Judgment: poor. Insight: poor. Orientation: x 3. Recent and remote memory: intact. Attention span and concentration: good. Fund of knowledge: below average. Mood: "I feel depressed" Affect: Constricted/flat DIAGNOSES: 1. Major Depressive d/o 2. Schizoaffective d/o by h/o 3. substance abuse ASSESSMENT: The patient reports fleeting suicidal ideation, on and off but at the same time he says he questions himself if he should kill himself or not. Patient is waiting for a Rehab bed because he says he doesn't want to abuse substances anymore but he feels that he is drawn to Xanax and in fact, he tries to manipulate staff to give him Xanax. MANAGEMENT PLAN: Will speak to supply planner regarding bed availability, so thet he can go to Rehab. If no beds available soon, he will have to go back to [facility] and wait for a bed over there. TIME SPENT: 20 minutes. Vital Signs Vital Signs Date Time Temp Pulse Resp B/P (MAP) Pulse Ox O2 Delivery O2 Flow Rate FiO2 07/12/18 06:50 98.3 52 18 121/66 (84) 07/11/18 09:09 Room Air 07/07/18 04:19 99 Current Medications Current Medications Acetaminophen (Tylenol Tab) 650 mg Q6HP PRN PO HEADACHE or DISCOMFORT; Start 07/07/18 at 03:00 Al Hydrox/Mg Hydrox/Simethicone (Mylanta) 30 ml Q4HP PRN PO HEARTBURN/INDIGESTION; Start 07/07/18 at 03:00 Aripiprazole (AbiLIFY) 5 mg QHS PO Last administered on 07/11/18at 20:25; Start 07/07/18 at 21:00 Cetirizine HCl (ZyrTEC) 10 mg DAILY PRN PO ALLERGIES; Start 07/07/18 at 11:30 Diphenhydramine HCl (Benadryl) 25 mg Q6HP PRN PO ANXIETY/AGITATION Last administered on 07/07/18at 15:33; Start 07/07/18 at 03:00 Fluticasone Propionate (Flonase 0.05% Nasal [place]) 2 spray DAILY NA Last administered on 07/12/18at 09:25; Start 07/07/18 at 09:00 Home Med (Med Rec Complete!) ASDIRECTED XX ; Start 07/06/18 at 17:45; Stop 07/06/18 at 17:45; Status DC Hydroxyzine HCl (Atarax) 50 mg Q6HP PRN PO ANXIETY/AGITATION Last administered on 07/08/18at 23:10; Start 07/07/18 at 03:00; Stop 07/09/18 at 03:00; Status DC Magnesium Hydroxide (Milk Of Magnesia) 30 ml DAILYPRN PRN PO CONSTIPATION; Start 07/07/18 at 03:00 Olanzapine (ZyPREXA ZYDIS) 5 mg Q4HP PRN PO AGITATION Last administered on 07/11/18at 22:44; Start 07/07/18 at 03:00 Sertraline HCl (Zoloft) 100 mg DAILY PO Last administered on 07/12/18at 09:25; Start 07/07/18 at 09:00 Trazodone HCl (Desyrel) 50 mg QHSP PRN PO INSOMNIA; Start 07/07/18 at 03:00 Allergies Coded Allergies: No Known Allergies (Unverified , 06/29/18) CYDNEY CABRAL MD Jul 12, 2018 19:20
--- NOTE | 2018-07-12 21:25 | MHIPN ---
DATE: 07/11/2018 The patient today states that he is feeling a lot better, yet he is still vague about having suicidal ideations, but he is willing to contract for safety. He states that he slept good. MENTAL STATUS EXAMINATION: The patient is alert and oriented times three. Eye contact is fair. Psychomotor activity is normal. There is no formal thought disorder noted. He is verbally spontaneous. His mood is "better." Affect is full range and appropriate. He is not psychotic, suicidal or homicidal. Concentration is fair. Memory is intact. Insight and judgment fair. DIAGNOSES: 1. Major depressive disorder. 2. Schizoaffective disorder by history. TREATMENT PLAN: At this point, the patient will continue to be monitored for continued elevation and stabilization of his mood and for continued resolution of suicidal ideations. We will continue to titrate the medications as indicated.
--- NOTE | 2018-07-12 21:55 | MHIPN ---
DATE: 07/10/2018 The patient today refused to see me; therefore, I am not able to do a full evaluation. This patient's mental status exam could not be completed as she refused to see me. DIAGNOSES: 1. Major depressive disorder by history. 2. Schizoaffective disorder by history. At this point, the patient will continue on his current medications.
[2018-07-13 07:00] VITALS: BP 133/65
[2018-07-13] MEDS: SERTRALINE 100 MG TAB PO SCH (09:20)
[2018-07-13] MEDS: FLUTICASONE PROP 0.05% NASAL SPRAY 16 GM (FLONASE) SCH (09:20)
--- NOTE | 2018-07-13 17:13 | MHIPNPDOC ---
[facility] Progress Note Progress Note DATE OF SERVICE: 07/12/18 HISTORY: CHIEF COMPLAINT: SUICIDAL IDEATION AND SUBSTANCE ABUSE HISTORY OF PRESENT ILLNESS: Patient is a 22-year-old male, who, as per ED report: "Patient arrived with police, following concerns from several people in community. Police found him in front of the [facility], holding a knife to his neck & stating that he was going to kill himself. He reports stuggling with the grief of a friend who in [place] recently. Review of his [facility] D/C Summary on 07/02 noted that he had been pressing for D/C in order to attend the for that friend. He states that he has been unable to sleep or stop thinking about that . He admits that he used Xanax (by inhaling it) last night, and although acknowledged his substance abuse hx, alleges that last night's use was a means to try & cope with his grief. At this time he continues to express + SI & is unable to CFS for D/C". VITAL SIGNS: See below. NEW TEST RESULTS: See below CURRENT MEDICATIONS: See below. MENTAL STATUS EXAMINATION: General appearance: Patient is a 22-year old male, who is alert, dressed in hospital clothes Speech: fluent, spontaneous, normal rate, tone and volume. Thought processes: linear, coherent. Thought content: Continues to report guilty feelings about his friend's Abstract reasoning and computation: fair. Description of associations: good. Description of abnormal or psychotic thoughts: Reports SI due to guilt, denies HI, denies AV hallucinations Judgment: poor. Insight: poor. Orientation: x 3. Recent and remote memory: intact. Attention span and concentration: good. Fund of knowledge: below average. Mood: "I feel better today" Affect: blunted DIAGNOSES: 1. Major Depressive d/o 2. Schizoaffective d/o by h/o 3. substance abuse ASSESSMENT: Patient was interviewed in his room. He appears to be in better spirits. He says that he enjoys spending time with the other patients. He is aware that there are currently no rehab beds available and that he will likely need to return to [facility]. He shares his love of [employer] and willingly describes the symbolism behind his forearm tattoo. He appears to be improving. He continues to deny suicidal ideation and has been compliant with medications. MANAGEMENT PLAN: Continue with current management. Anticipate discharge back to [facility] and wait for a rehabilitation bed. TIME SPENT: 20 minutes. Vital Signs Vital Signs Date Time Temp Pulse Resp B/P (MAP) Pulse Ox O2 Delivery O2 Flow Rate FiO2 07/13/18 07:00 97.7 65 18 133/65 (87) 07/11/18 09:09 Room Air 07/07/18 04:19 99 Current Medications Current Medications Acetaminophen (Tylenol Tab) 650 mg Q6HP PRN PO HEADACHE or DISCOMFORT; Start 07/07/18 at 03:00 Al Hydrox/Mg Hydrox/Simethicone (Mylanta) 30 ml Q4HP PRN PO HEARTBURN/INDIGESTION; Start 07/07/18 at 03:00 Aripiprazole (AbiLIFY) 5 mg QHS PO Last administered on 07/12/18at 21:39; Start 07/07/18 at 21:00 Cetirizine HCl (ZyrTEC) 10 mg DAILY PRN PO ALLERGIES; Start 07/07/18 at 11:30 Diphenhydramine HCl (Benadryl) 25 mg Q6HP PRN PO ANXIETY/AGITATION Last administered on 07/07/18at 15:33; Start 07/07/18 at 03:00 Fluticasone Propionate (Flonase 0.05% Nasal [place]) 2 spray DAILY NA Last administered on 07/13/18at 09:20; Start 07/07/18 at 09:00 Home Med (Med Rec Complete!) ASDIRECTED XX ; Start 07/06/18 at 17:45; Stop 07/06/18 at 17:45; Status DC Hydroxyzine HCl (Atarax) 50 mg Q6HP PRN PO ANXIETY/AGITATION Last administered on 07/08/18at 23:10; Start 07/07/18 at 03:00; Stop 07/09/18 at 03:00; Status DC Magnesium Hydroxide (Milk Of Magnesia) 30 ml DAILYPRN PRN PO CONSTIPATION; Start 07/07/18 at 03:00 Olanzapine (ZyPREXA ZYDIS) 5 mg Q4HP PRN PO AGITATION Last administered on 07/11/18at 22:44; Start 07/07/18 at 03:00 Sertraline HCl (Zoloft) 100 mg DAILY PO Last administered on 07/13/18at 09:20; Start 07/07/18 at 09:00 Trazodone HCl (Desyrel) 50 mg QHSP PRN PO INSOMNIA; Start 07/07/18 at 03:00 Allergies Coded Allergies: No Known Allergies (Unverified , 06/29/18) GME ATTESTATION GME ATTESTATION My faculty preceptor for this patient encounter was physically present during the encounter and was fully available. All aspects of the patient interview, examination, medical decision making process, and medical care plan development were reviewed and approved by the faculty preceptor. The faculty preceptor is aware and concurs with the plan as stated in the body of this note and will attest to such by his/her cosignature. ALFIE WAGGONER DO Jul 13, 2018 17:13
[2018-07-13 18:33] VITALS: BP 140/68
[2018-07-14 07:00] VITALS: BP_SYST 105; BP_SYST 116; BP_DIAS 56; BP_DIAS 58
[2018-07-14] MEDS: FLUTICASONE PROP 0.05% NASAL SPRAY 16 GM (FLONASE) SCH (09:01)
[2018-07-14] MEDS: SERTRALINE 100 MG TAB PO SCH (09:02)
[2018-07-14] MEDS ORDERED: DIPH25CA PO (10:08)
[2018-07-14] MEDS ORDERED: TRAZO50TA PO (10:08)
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
== END 2018-07-14 10:40 | disposition home or self-care (01) | DRG 754 ==
LOC: M ED 13:33 → M ED INP 07-07 02:47 → M PSY 07-07 04:25
PROVIDERS: ADMIT Psychiatry & Neurology Psychiatry; ATTEND Psychiatry & Neurology Psychiatry
DX: F32.9 Major depressive disorder, single episode, unspecified (principal); F25.9 Schizoaffective disorder, unspecified; J30.9 Allergic rhinitis, unspecified; F17.200 Nicotine dependence, unspecified, uncomplicated; F12.10 Cannabis abuse, uncomplicated; G47.00 Insomnia, unspecified; Z91.5 Personal history of self-harm; Z62.810 Personal history of physical and sexual abuse in childhood; Z79.899 Other long term (current) drug therapy; Z81.8 Family history of other mental and behavioral disorders

== ENCOUNTER 2018-07-18 21:09 | Emergency (ER) | payer MEDICAID, OTHER ==
[~2018-07-18 21:09] MED LIST changes: +DIPH25CA PO
[2018-07-18 21:19] VITALS: BP 136/84
[2018-07-18 21:53] LABS: HEMATOCRIT 45.4 % (42.0-52.0); HEMOGLOBIN 15.4 g/dl (13.5-17.5); MEAN CORPUSCULAR HEMOGLOBIN 30.3 pg (27.0-33.0); MEAN CORPUSCULAR HGB CONC 33.9 g/dl (32.0-36.5); MEAN CORPUSCULAR VOLUME 89.4 fl (80.0-96.0); PLATELET COUNT, AUTOMATED 221 10^3/uL (150-450); RED BLOOD COUNT 5.08 10^6/uL (4.30-6.10); WHITE BLOOD COUNT 10.5 10^3/uL (4.0-10.0)
[2018-07-18 22:16] LABS: AMPHETAMINES LEVEL URINE NEGATIVE (NEGATIVE); BARBITURATES URINE NEGATIVE (NEGATIVE); BENZODIAZEPINES URINE NEGATIVE (NEGATIVE); CANNABINOIDS URINE NEGATIVE (NEGATIVE); COCAINE METABOLITE URINE NEGATIVE (NEGATIVE); METHADONE URINE NEGATIVE (NEGATIVE); OPIATES URINE NEGATIVE (NEGATIVE); PHENCYCLIDINE URINE NEGATIVE (NEGATIVE)
[2018-07-18 22:30] LABS: ACETAMINOPHEN LEVEL < 2.0 UG/ML (10.0-30.0); ALBUMIN 3.9 GM/DL (3.2-5.2); ALT/SGPT 46 U/L (12-78); BILIRUBIN,DIRECT 0.1 MG/DL (0.0-0.2); BILIRUBIN,TOTAL 0.3 MG/DL (0.2-1.0); BLOOD UREA NITROGEN 17 MG/DL (7-18); CALCIUM LEVEL 8.6 MG/DL (8.5-10.1); CARBON DIOXIDE LEVEL 26 MEQ/L (21-32); CHLORIDE LEVEL 108 MEQ/L (98-107); CREATININE FOR GFR 0.98 MG/DL (0.70-1.30); ETHYL ALCOHOL (ETHANOL) < 0.003 % (0.000-0.010); GLUCOSE, FASTING 95 MG/DL (70-100); POTASSIUM SERUM 4.2 MEQ/L (3.5-5.1); SALICYLATE LEVEL < 1.7 MG/DL (5.0-30.0); SODIUM LEVEL 143 MEQ/L (136-145); TOTAL PROTEIN 7.2 GM/DL (6.4-8.2)
== END 2018-07-18 23:20 | disposition home or self-care (01) ==
LOC: M ED 21:09
DX: F43.0 Acute stress reaction (principal)
CPT/HCPCS: 80048; 80076; 80307; 84443; 85027; 99284; G0480

== ENCOUNTER → 2018-08-17 | Outpatient (REF) | payer OTHER ==
[2018-08-17 14:54] LABS: FREE T4 1.15 NG/DL (0.78-1.33); THYROID STIMULATING HORMONE 2.4 uIU/ML (0.463-3.98); TOTAL 25(OH) VITAMIN D 19.5 NG/ML (30.0-100.0)
== END ==
LOC: M SFHCPLAZ 11:42
PROVIDERS: ATTEND Nurse Practitioner Family
DX: R79.89 Other specified abnormal findings of blood chemistry (principal); E55.9 Vitamin D deficiency, unspecified

== ENCOUNTER → 2018-08-19 | Outpatient (RCR) | payer MEDICAID | LOC: M OUTALCOH 08-12 13:11 | PROVIDERS: ATTEND Psychiatry & Neurology Psychiatry | DX: F12.20 Cannabis dependence, uncomplicated (principal); F13.20 Sedative, hypnotic or anxiolytic dependence, uncomplicated; F17.200 Nicotine dependence, unspecified, uncomplicated ==

== ENCOUNTER 2018-09-06 12:21 | Outpatient (RCR) | payer MEDICAID | END 2018-09-19 | LOC: M OUTALCOH 12:21 | PROVIDERS: ATTEND Psychiatry & Neurology Psychiatry | DX: F12.20 Cannabis dependence, uncomplicated (principal); F13.20 Sedative, hypnotic or anxiolytic dependence, uncomplicated ==

== ENCOUNTER 2019-02-01 22:50 | Emergency (ER) | payer MEDICAID, OTHER ==
[~2019-02-01] VITALS: Ht 177.8 cm; Wt 120.0 kg
[~2019-02-01 22:50] MED LIST changes: -ALL10TAB28 PO; +ALL10TAB29 PO; -ARIP10TAB PO; +ARIP1TAB PO; +ARIP1TAB6 PO; -ARIP5TA PO; -DIPH25CA PO; +DIPH25CA32 PO; +HYDR1TAB33 PO; -HYDRO50TAB PO; +SERT-141 PO; -SERT50TA PO; -TRAZ-160 PO; +TRAZ-252 PO; +TRAZ1TAB10 PO; -TRAZO50TA PO
[2019-02-01 23:26] VITALS: BP 142/85
--- NOTE | 2019-02-02 10:21 | REP ---
Right small finger series: History: Pain and bruising tip of the right small finger. Findings: There is a chip fracture from the dorsal surface of the distal phalanx of the small finger at the DIP joint consistent with an extensor tendon evulsion chip fracture injury. There is minimal distraction. There is lack of complete extension at the DIP joint. No other fracture is seen. Impression: Intra-articular dorsal extensor tendon evulsion chip fracture from the distal phalanx of the small finger with minimal distraction. Electronically Signed by Delgado Flannery MD 02/02/2019 08:56 P
--- NOTE | 2019-02-06 20:17 | ED PDOC ---
Post-Departure Follow-Up ed transmitter engineer in charge instructed to calll pt, disclose fx, finger splint and fu w ortho. ncog faxed formal report of right fingers xray for fu mlg Lamont Munoz MD Feb 06, 2019 20:16
== END 2019-02-01 23:45 | disposition home or self-care (01) ==
LOC: M ED 22:50
DX: S60.151A Contusion of right little finger with damage to nail, initial encounter (principal); W22.8XXA Striking against or struck by other objects, initial encounter; Y92.018 Other place in single-family (private) house as the place of occurrence of the external cause; Z79.899 Other long term (current) drug therapy

== ENCOUNTER 2019-02-14 03:34 | Inpatient (IN) | payer MEDICAID, OTHER ==
[~2019-02-14] VITALS: Ht 177.8 cm; Wt 106.3 kg
[~2019-02-14 03:34] MED LIST changes: +ALL10TAB28 PO; -ALL10TAB29 PO
[2019-02-14 04:40] LABS: HEMATOCRIT 46.1 % (42.0-52.0); HEMOGLOBIN 15.9 g/dl (13.5-17.5); MEAN CORPUSCULAR HEMOGLOBIN 31.2 pg (27.0-33.0); MEAN CORPUSCULAR HGB CONC 34.5 g/dl (32.0-36.5); MEAN CORPUSCULAR VOLUME 90.4 fl (80.0-96.0); PLATELET COUNT, AUTOMATED 224 10^3/uL (150-450)
[2019-02-14 04:58] LABS: ACETAMINOPHEN LEVEL < 2.0 UG/ML (10.0-30.0); ALBUMIN 3.9 GM/DL (3.2-5.2); ALT/SGPT 48 U/L (12-78); BILIRUBIN,DIRECT 0.2 MG/DL (0.0-0.2); BILIRUBIN,TOTAL 0.5 MG/DL (0.2-1.0); BLOOD UREA NITROGEN 16 MG/DL (7-18); CALCIUM LEVEL 8.9 MG/DL (8.5-10.1); CARBON DIOXIDE LEVEL 23 MEQ/L (21-32); CHLORIDE LEVEL 111 MEQ/L (98-107); CREATININE FOR GFR 1.06 MG/DL (0.70-1.30); ETHYL ALCOHOL (ETHANOL) < 0.003 % (0.000-0.010); GLOMERULAR FILTRATION RATE > 60.0 (>60); GLUCOSE, FASTING 90 MG/DL (70-100); POTASSIUM SERUM 3.9 MEQ/L (3.5-5.1); SALICYLATE LEVEL 2.3 MG/DL (5.0-30.0); SODIUM LEVEL 144 MEQ/L (136-145); TOTAL PROTEIN 6.9 GM/DL (6.4-8.2)
[2019-02-14 06:34] LABS: AMPHETAMINES LEVEL URINE NEGATIVE (NEGATIVE); BARBITURATES URINE NEGATIVE (NEGATIVE); BENZODIAZEPINES URINE NEGATIVE (NEGATIVE); CANNABINOIDS URINE POSITIVE (NEGATIVE); COCAINE METABOLITE URINE NEGATIVE (NEGATIVE); METHADONE URINE NEGATIVE (NEGATIVE); OPIATES URINE NEGATIVE (NEGATIVE); PHENCYCLIDINE URINE NEGATIVE (NEGATIVE)
[2019-02-14] MEDS ORDERED: MAALOX 30 ML SUSP *UDC PO PRN (15:15)
[2019-02-14] MEDS ORDERED: IBUPROFEN 400 MG TAB PO PRN (15:15)
[2019-02-14] MEDS ORDERED: MOM 30ML SUSPENSION UDC PO PRN (15:15)
[2019-02-14] MEDS: NICOTINE 21MG/24HR 1 EA TRANSDERMAL TD SCH (15:38)
[2019-02-14 17:21] VITALS: BP 127/85
[2019-02-15 06:50] VITALS: BP 126/69
[2019-02-15] MEDS: NICOTINE 21MG/24HR 1 EA TRANSDERMAL TD SCH (09:00)
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
[2019-02-15] MEDS ORDERED: hydrOXYzine 50 MG TAB PO PRN (11:15)
[2019-02-15] MEDS ORDERED: SERTRALINE HCL 50 MG TAB PO ONE (12:00)
[2019-02-15 18:00] VITALS: BP 146/65
[2019-02-16] MEDS: CLOTRIMAZOLE 1% TOPICAL CREAM 30GM TOP SCH ×3 (02:35→21:31)
[2019-02-16 06:46] VITALS: BP 123/87
[2019-02-16] MEDS: NICOTINE 21MG/24HR 1 EA TRANSDERMAL TD SCH (09:00)
[2019-02-16] MEDS: SERTRALINE HCL 50 MG TAB PO SCH (09:28)
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
[2019-02-16] MEDS ORDERED: CETIRIZINE (ZyrTEC) 10 MG TAB PO ONE (10:00)
--- NOTE | 2019-02-16 15:10 | HPE ---
DATE OF ADMISSION: 02/14/2019 HISTORY OF PRESENT ILLNESS: Please refer to the psychiatric history and evaluation for further details on this admission. This examination and history is intended for medical issues which may need treatment, followup or consultation on this 23-year-old male. PRIMARY CARE PROVIDER: Cookie Major NP [facility]. ALLERGIES: No known drug allergies. SOCIAL HISTORY: Lives in [place]. He is single. He smokes 1-2 packs of cigarettes a day. He drinks a couple of drinks once every other week. Recreational drug use - marijuana. FAMILY HISTORY: Mother is alive and well. Father is , committed suicide at the age of 23. Siblings, alive and well. HOME MEDICATIONS: None. LABORATORY DATA: CBC is normal. CMP is normal. Urine is positive for cannabinoids. REVIEW OF SYSTEMS: 11-systems review was done. He complained of a flat rash under his breast and antecubital spaces. He has had it for over a week. Unifascicular. He also states that last month, he states his roommates saw him start shaking. He said he felt lightheaded and then was shaking. No loss of bowel or bladder control. It has not happened since. He has never had it in the past. Otherwise, review of system is negative. He denies any fevers, chills, weakness, fatigue, headache, chest pain, shortness of breath, cough, palpitations, abdominal pain, nausea, vomiting, hematochezia, melena, changes in bowel or bladder habits. No blurred or double vision. PHYSICAL EXAMINATION: 23-year-old cooperative made in no acute distress. Vital signs stable. Height 70 inches, weight 111.3 kg. Body mass index (BMI) 35.2. Blood pressure 126/69, pulse 58, respirations 16, temperature 98. The patient is alert and oriented times three. Pupils equal and reactive to light. Extraocular movements intact. Cornea and sclera clear. Conjunctiva normal. No facial asymmetry. Pharynx, tongue, and gums pink and moist. Tongue is midline. Neck is supple, without lymphadenopathy. No thyromegaly. No goiter. Carotids 2+ without bruit. Chest clear to auscultation, without wheeze or retraction. Heart is regular. Abdomen benign. Bowel sounds positive. /Rectal: Not done. Extremities: No cyanosis, clubbing or edema. Peripheral pulses equal and palpable bilaterally. Skin is warm and dry. Flattened red rash noted under breasts and in the antecubital spaces. IMPRESSION AND PLAN: 1. Psychiatric: Plan per psychiatry. 2. Viral or fungal rash: Will order Lotrimin for the rash area twice a day. 3. Per patient stated he was visualized by roommates having true shaking episodes. Will monitor for any abnormal activity. 4. Nicotine dependence: Patch available. 5. Allergic rhinitis: Currently on no medications. Asymptomatic at this time. Followup with primary care provider on discharge at [facility].
[2019-02-16 19:02] VITALS: BP 142/63
[2019-02-17 06:43] VITALS: BP 118/65
[2019-02-17] MEDS: NICOTINE 21MG/24HR 1 EA TRANSDERMAL TD SCH (09:00)
[2019-02-17] MEDS: CETIRIZINE (ZyrTEC) 10 MG TAB PO SCH (09:56)
[2019-02-17] MEDS: SERTRALINE HCL 50 MG TAB PO SCH (09:57)
[2019-02-17] MEDS: CLOTRIMAZOLE 1% TOPICAL CREAM 30GM TOP SCH ×2 (09:57→21:40)
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
[2019-02-17 18:00] VITALS: BP 135/63
[2019-02-18 06:43] VITALS: BP 121/75
[2019-02-18] MEDS: CETIRIZINE (ZyrTEC) 10 MG TAB PO SCH (08:40)
[2019-02-18] MEDS: CLOTRIMAZOLE 1% TOPICAL CREAM 30GM TOP SCH ×2 (08:40→21:57)
[2019-02-18] MEDS: SERTRALINE HCL 50 MG TAB PO SCH (08:40)
[2019-02-18] MEDS: NICOTINE 21MG/24HR 1 EA TRANSDERMAL TD SCH (08:40)
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
[2019-02-18 17:52] VITALS: BP 133/76
[2019-02-18 22:35] VITALS: BP 145/81
[2019-02-19 07:20] VITALS: BP 106/66
[2019-02-19] MEDS: CLOTRIMAZOLE 1% TOPICAL CREAM 30GM TOP SCH ×2 (08:54→20:52)
[2019-02-19] MEDS: NICOTINE 21MG/24HR 1 EA TRANSDERMAL TD SCH (08:54)
[2019-02-19] MEDS: CETIRIZINE (ZyrTEC) 10 MG TAB PO SCH (08:54)
[2019-02-19] MEDS: SERTRALINE HCL 50 MG TAB PO SCH (08:54)
[2019-02-19 17:56] VITALS: BP 139/73
[2019-02-20 06:32] VITALS: BP 123/82
[2019-02-20] MEDS: NICOTINE 21MG/24HR 1 EA TRANSDERMAL TD SCH (09:00)
[2019-02-20] MEDS: CETIRIZINE (ZyrTEC) 10 MG TAB PO SCH (09:53)
[2019-02-20] MEDS: SERTRALINE HCL 50 MG TAB PO SCH (09:53)
[2019-02-20] MEDS: CLOTRIMAZOLE 1% TOPICAL CREAM 30GM TOP SCH ×2 (09:54→21:46)
[2019-02-20 17:43] VITALS: BP 114/66
[2019-02-21 06:44] VITALS: BP 127/67
[2019-02-21] MEDS: NICOTINE 21MG/24HR 1 EA TRANSDERMAL TD SCH ×2 (09:00→16:35)
[2019-02-21] MEDS: CETIRIZINE (ZyrTEC) 10 MG TAB PO SCH (09:13)
[2019-02-21] MEDS: SERTRALINE HCL 50 MG TAB PO SCH (09:13)
[2019-02-21] MEDS: CLOTRIMAZOLE 1% TOPICAL CREAM 30GM TOP SCH ×2 (09:13→21:45)
[2019-02-21 17:01] VITALS: BP 135/74
[2019-02-21] MEDS: traZODone 50 MG TAB PO PRN (23:27)
[2019-02-22 06:51] VITALS: BP 125/71
[2019-02-22] MEDS: NICOTINE 21MG/24HR 1 EA TRANSDERMAL TD SCH (09:14)
[2019-02-22] MEDS: CLOTRIMAZOLE 1% TOPICAL CREAM 30GM TOP SCH ×2 (09:16→21:50)
[2019-02-22] MEDS: SERTRALINE HCL 50 MG TAB PO SCH (09:16)
[2019-02-22] MEDS: CETIRIZINE (ZyrTEC) 10 MG TAB PO SCH (09:16)
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
[2019-02-22 16:37] VITALS: BP 120/58
[2019-02-22] MEDS: traZODone 50 MG TAB PO PRN (23:51)
[2019-02-23 07:01] VITALS: BP 127/73
[2019-02-23] MEDS: NICOTINE 21MG/24HR 1 EA TRANSDERMAL TD SCH (08:30)
[2019-02-23] MEDS: SERTRALINE HCL 50 MG TAB PO SCH (08:30)
[2019-02-23] MEDS: CETIRIZINE (ZyrTEC) 10 MG TAB PO SCH (08:30)
[2019-02-23] MEDS: CLOTRIMAZOLE 1% TOPICAL CREAM 30GM TOP SCH (08:31)
[2019-02-23] MEDS ORDERED: HYDR50TA70 PO (09:25)
[2019-02-23] MEDS ORDERED: TRAZ-252 PO (09:25)
[2019-02-23] MEDS ORDERED: SERT-155 PO (09:25)
[2019-02-23] MEDS ORDERED: ABIL1TAB11 PO (09:25)
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
== END 2019-02-23 11:46 | disposition home or self-care (01) | DRG 754 ==
LOC: M ED 03:34 → M ED INP 15:03 → M PSY 17:14
PROVIDERS: ADMIT Psychiatry & Neurology Addiction Medicine; ATTEND Psychiatry & Neurology Psychiatry
DX: F32.9 Major depressive disorder, single episode, unspecified (principal); F25.9 Schizoaffective disorder, unspecified; R45.851 Suicidal ideations; F41.9 Anxiety disorder, unspecified; F12.90 Cannabis use, unspecified, uncomplicated; F17.210 Nicotine dependence, cigarettes, uncomplicated; R21 Rash and other nonspecific skin eruption

== ENCOUNTER 2019-04-23 15:47 | Emergency (ER) | payer MEDICAID, OTHER ==
[~2019-04-23] VITALS: Ht 177.8 cm; Wt 102.0 kg
[~2019-04-23 15:47] MED LIST changes: +ABIL1TAB11 PO; -ALL10TAB28 PO; +ALL10TAB29 PO; +SERT50TA29 PO
--- NOTE | 2019-04-23 17:16 | REP ---
Clinical: Seizures . Comparison: None . Findings: The ventricles, sulci, and cisterns are normal in position and appearance. Cleaning-white differentiation is maintained. No acute intracranial hemorrhage, mass/mass effect, pathology or trauma/injury. No evidence for acute infarction. No extra-axial fluid collection. Calvarium is intact. Paranasal sinuses and mastoid air cells are clear. Impression: Normal noncontrast head CT. No evidence for acute intracranial pathology or trauma/injury. Electronically Signed by Freddie Álvarez MD 04/23/2019 05:08 P
[2019-04-23 17:22] LABS: BASO % 0.3 % (0.0-1.0); EOS # 0.1 10^3/uL (0.0-0.5); EOS % 1.2 % (0.0-3.0); HEMATOCRIT 47.5 % (42.0-52.0); HEMOGLOBIN 15.7 g/dl (13.5-17.5); LYMPH # 2.4 10^3/uL (1.5-5.0); LYMPH % 31.8 % (24.0-44.0); MEAN CORPUSCULAR HGB CONC 33.1 g/dl (32.0-36.5); MEAN CORPUSCULAR VOLUME 90.8 fl (80.0-96.0); MONO # 0.7 10^3/uL (0.0-0.8); MONO % 9.8 % (0.0-5.0); NEUTROPHILS # 4.3 10^3/uL (1.5-8.5); NEUTROPHILS % 56.6 % (36.0-66.0); PLATELET COUNT, AUTOMATED 199 10^3/uL (150-450); RED BLOOD COUNT 5.23 10^6/uL (4.30-6.10); WHITE BLOOD COUNT 7.5 10^3/uL (4.0-10.0)
[2019-04-23 17:50] LABS: ALBUMIN 3.8 GM/DL (3.2-5.2); ALT/SGPT 31 U/L (12-78); BILIRUBIN,DIRECT 0.2 MG/DL (0.0-0.2); BILIRUBIN,TOTAL 0.7 MG/DL (0.2-1.0); BLOOD UREA NITROGEN 16 MG/DL (7-18); CALCIUM LEVEL 9.2 MG/DL (8.5-10.1); CARBON DIOXIDE LEVEL 29 MEQ/L (21-32); CHLORIDE LEVEL 107 MEQ/L (98-107); CREATININE FOR GFR 1.08 MG/DL (0.70-1.30); GLOMERULAR FILTRATION RATE > 60.0 (>60); GLUCOSE, FASTING 78 MG/DL (70-100); MAGNESIUM LEVEL 1.8 MG/DL (1.8-2.4); POTASSIUM SERUM 4.2 MEQ/L (3.5-5.1); SODIUM LEVEL 139 MEQ/L (136-145)
[2019-04-23 18:29] LABS: AMPHETAMINES LEVEL URINE NEGATIVE (NEGATIVE); BARBITURATES URINE NEGATIVE (NEGATIVE); BENZODIAZEPINES URINE NEGATIVE (NEGATIVE); CANNABINOIDS URINE POSITIVE (NEGATIVE); COCAINE METABOLITE URINE NEGATIVE (NEGATIVE); METHADONE URINE NEGATIVE (NEGATIVE); OPIATES URINE NEGATIVE (NEGATIVE); PHENCYCLIDINE URINE NEGATIVE (NEGATIVE)
[2019-04-23] MEDS ORDERED: DEPA250T32 PO (19:29)
[2019-04-23] MEDS ORDERED: DIVALPROEX 250 MG TAB PO ONE (19:30)
[2019-04-23 19:54] VITALS: BP 121/58
== END 2019-04-23 19:56 | disposition home or self-care (01) ==
LOC: M ED 15:47
DX: R56.9 Unspecified convulsions (principal); G47.00 Insomnia, unspecified; F41.9 Anxiety disorder, unspecified; F32.9 Major depressive disorder, single episode, unspecified; F17.200 Nicotine dependence, unspecified, uncomplicated; F12.10 Cannabis abuse, uncomplicated

== ENCOUNTER 2021-04-19 14:50 | Emergency (ER) | payer OTHER ==
[~2021-04-19] VITALS: Ht 172.7 cm; Wt 113.8 kg
[~2021-04-19 14:50] MED LIST changes: -ALL10TAB29 PO; -ARIP1TAB2 PO; +ARIP1TAB43 PO; -BUPR300T34 PO; +BUPR300T92 PO; +CETI-24 PO; -TRAZ-163 PO; +TRAZ-257 PO
--- OUTSIDE RECORDS SUMMARY | 2021-04-19 14:57 | CCD ---
Author Author [facility] Organization [facility] Address Unknown Phone Unavailable Care Team Providers Care Wireless Watcher Name Role Phone Tilbe, L Cathleen MEDICAL OFFICE REP Unavailable Unavailable Tilbe, L Cathleen MEDICAL OFFICE REP Unavailable Unavailable Tilbe, L Cathleen MEDICAL OFFICE REP Unavailable Unavailable Tilbe, L Cathleen MEDICAL OFFICE REP Unavailable Unavailable Tilbe, L Cathleen MEDICAL OFFICE REP Unavailable Unavailable Tilbe, L Cathleen MEDICAL OFFICE REP Unavailable Unavailable Tilbe, L Cathleen MEDICAL OFFICE REP Unavailable Unavailable Tilbe, L Cathleen MEDICAL OFFICE REP Unavailable Unavailable Tilbe, L Cathleen MEDICAL OFFICE REP Unavailable Unavailable Tilbe, L Cathleen MEDICAL OFFICE REP Unavailable Unavailable Tilbe, L Cathleen MEDICAL OFFICE REP Unavailable Unavailable Tilbe, L Cathleen MEDICAL OFFICE REP Unavailable Unavailable Tilbe, L Cathleen MEDICAL OFFICE REP Unavailable Unavailable Tilbe, L Cathleen MEDICAL OFFICE REP Unavailable Unavailable Tilbe, L Cathleen MEDICAL OFFICE REP Unavailable Unavailable Tilbe, L Cathleen MEDICAL OFFICE REP Unavailable Unavailable Tilbe, L Cathleen MEDICAL OFFICE REP Unavailable Unavailable Tilbe, L Cathleen MEDICAL OFFICE REP Unavailable Unavailable Tilbe, L Cathleen MEDICAL OFFICE REP Unavailable Unavailable Tilbe, L Cathleen MEDICAL OFFICE REP Unavailable Unavailable Tilbe, L Cathleen MEDICAL OFFICE REP Unavailable Unavailable Tilbe, L Cathleen MEDICAL OFFICE REP Unavailable Unavailable Tilbe, L Cathleen MEDICAL OFFICE REP Unavailable Unavailable Tilbe, L Cathleen MEDICAL OFFICE REP Unavailable Unavailable Tilbe, L Cathleen MEDICAL OFFICE REP Unavailable Unavailable Tilbe, L Cathleen MEDICAL OFFICE REP Unavailable Unavailable Tilbe, L Cathleen MEDICAL OFFICE REP Unavailable Unavailable Tilbe, L Cathleen MEDICAL OFFICE REP Unavailable Unavailable Tilbe, L Cathleen MEDICAL OFFICE REP Unavailable Unavailable Tilbe, L Cathleen MEDICAL OFFICE REP Unavailable Unavailable Tilbe, L Cathleen MEDICAL OFFICE REP Unavailable Unavailable Tilbe, L Cathleen MEDICAL OFFICE REP Unavailable Unavailable Tilbe, L Cathleen MEDICAL OFFICE REP Unavailable Unavailable Tilbe, L Cathleen MEDICAL OFFICE REP Unavailable Unavailable Tilbe, L Cathleen MEDICAL OFFICE REP Unavailable Unavailable Tilbe, L Cathleen MEDICAL OFFICE REP Unavailable Unavailable Tilbe, L Cathleen MEDICAL OFFICE REP Unavailable Unavailable Re-disclosure Warning The records that you are about to access may contain information from federally-assisted alcohol or drug abuse programs. If such information is present, then the following federally mandated warning applies: This information has been disclosed to you from records protected by federal confidentiality rules (42 CFR part 2). The federal rules prohibit you from making any further disclosure of this information unless further disclosure is expressly permitted by the written consent of the person to whom it pertains or as otherwise permitted by 42 CFR part 2. A general authorization for the release of medical or other information is NOT sufficient for this purpose. The Federal rules restrict any use of the information to criminally investigate or prosecute any alcohol or drug abuse patient.The records that you are about to access may contain highly sensitive health information, the redisclosure of which is protected by Article 27-F of the [facility] Public Health law. If you continue you may have access to information: Regarding HIV / AIDS; Provided by facilities licensed or operated by the [facility] Office of Mental Health; or Provided by the [facility] Office for People With Developmental Disabilities. If such information is present, then the following [facility] mandated warning applies: This information has been disclosed to you from confidential records which are protected by state law. State law prohibits you from making any further disclosure of this information without the specific written consent of the person to whom it pertains, or as otherwise permitted by law. Any unauthorized further disclosure in violation of state law may result in a fine or detention sentence or both. A general authorization for the release of medical or other information is NOT sufficient authorization for further disc losure. Family History Family Member Name Family Member Gender Family Member Status Date o f Status Description Data Source(s) Unknown Female Problem [facility] ([facility]) Encounters Encounter Providers Location Date Indications Data Source(s ) Outpatient Attender: Cathleen Madsen [facility] 05/21/2020 09:00:00 AM EST [facility] ([facility]) Outpatient Attender: Cathleen Sarahcarolynn [facility] 05/11/2020 09:00:00 AM EST [facility] ([facility]) Immunizations Vaccine Date Status Description Data Source(s) COVID-19 VACCINE Pfizer 11/27/2020 12:00:00 AM EDT completed [facility] Vaccine Series Complete: NOThis [facility]. Medications Medication Brand Name Start Date Product Form Dose Route Admi nistrative Instructions Pharmacy Instructions Status Indications Reaction Description Data Source(s) 1 mg 09/06/2020 12:00:00 AM EDT tablet 60 TAKE ONE TABLET BY MOUTH EVERY MORNING AND IN THE EVENING TAKE ONE TABLET BY MOUTH EVERY MORNING A ND IN THE EVENING SOLD: 09/06/2020 [facility] 10 mg 08/20/2020 12:00:00 AM EST capsule 60 TAKE TWO CAPSULES BY MOUTH EVERY EVENING TAKE TWO CAPSULES BY MOUTH EVERY EVENING SOLD: 08/20/2020 [facility] 100 mg 08/18/2020 12:00:00 AM EST tablet 30 TAKE ONE TABLET BY MOUTH EVERY DAY AT BEDTIME TAKE ONE TABLET BY MOUTH EVERY DAY AT BEDTIME SOLD: 08/18/2020 [facility] buspirone hydrochloride 10 MG Oral Tablet BUSPIRONE HCL 08/18/2020 12:00:00 AM EST tablet 90 TAKE ONE TABLET BY MOUTH THR EE TIMES A DAY TAKE ONE TABLET BY MOUTH THREE TIMES A DAY SOLD: 08/18/2020 [facility] 1 mg 08/17/2020 12:00:00 AM EST tablet 30 TAKE ONE TABLET BY MOUTH EVERY DAY IN THE EVENING TAKE ONE TABLET BY MOUTH EVERY DAY IN THE EVENING SOLD : 08/18/2020 [facility] 10 mg 08/02/2020 12:00:00 AM EST capsule 60 TAKE TWO CAPSULES BY MOUTH IN THE EVENING TAKE TWO CAPSULES BY MOUTH IN THE EVENING SOLD: 08/09/2020 [facility] buspirone hydrochloride 10 MG Oral Tablet BUSPIRONE HCL 08/02/2020 12:00:00 AM EST tablet 90 TAKE ONE TABLET BY MOUTH THR EE TIMES A DAY TAKE ONE TABLET BY MOUTH THREE TIMES A DAY SOLD: 08/09/2020 [facility] 100 mg 07/28/2020 12:00:00 AM EST tablet 30 TAKE ONE TABLET BY MOUTH AT BEDTIME TAKE ONE TABLET BY MOUTH AT BEDTIME SOLD: 07/31/2020 [facility] 10 mg 05/06/2020 12:00:00 AM EST capsule 60 TAKE TWO CAPSULES BY MOUTH EVERY EVENING MAXIMUM DAILY DOSE = 2 TAKE TWO CAPSULES BY MOUTH EVERY EVENING MAXIMUM DAILY DOSE = 2 SOLD: 07/11/2020 [facility] 10 mg 05/06/2020 12:00:00 AM EST capsule 60 TAKE TWO CAPSULES BY MOUTH EVERY EVENING MAXIMUM DAILY DOSE = 2 TAKE TWO CAPSULES BY MOUTH EVERY EVENING MAXIMUM DAILY DOSE = 2 SOLD: 05/06/2020 [facility] 10 mg 05/06/2020 12:00:00 AM EST capsule 60 TAKE TWO CAPSULES BY MOUTH EVERY EVENING MAXIMUM DAILY DOSE = 2 TAKE TWO CAPSULES BY MOUTH EVERY EVENING MAXIMUM DAILY DOSE = 2 SOLD: 06/10/2020 [facility] 10 mg 04/26/2020 12:00:00 AM EST capsule 7 TAKE ONE CAPSULE BY MOUTH EVERY EVENING MAXIMUM DAILY DOSE = 1 CAPSULE TAKE ONE CAPSULE BY MOUTH EVERY EVENING MAXIMUM DAILY DOSE = 1 CAPSULE SOLD: 04/26/2020 [facility] 5 mg 04/18/2020 12:00:00 AM EDT capsule 7 TAKE ONE CAPSULE BY MOUTH EVERY DAY TAKE ONE CAPSULE BY MOUTH EVERY DAY SOLD: 04/18/2020 [facility] 1 mg 04/15/2020 12:00:00 AM EDT tablet 60 TAKE ONE TABLET BY MOUTH EVERY MORNING AND TAKE ONE TABLET BY MOUTH EVERY EVENING TAKE ONE TABLET BY MOUTH EVERY MORNING AND TAKE ONE TABLET BY MOUTH EVERY EVENING SOLD: 06/10/2020 [facility] 1 mg 04/15/2020 12:00:00 AM EDT tablet 60 TAKE ONE TABLET BY MOUTH EVERY MORNING AND TAKE ONE TABLET BY MOUTH EVERY EVENING TAKE ONE TABLET BY MOUTH EVERY MORNING AND TAKE ONE TABLET BY MOUTH EVERY EVENING SOLD: 07/20/2020 [facility] 1 mg 04/15/2020 12:00:00 AM EDT tablet 60 TAKE ONE TABLET BY MOUTH EVERY MORNING AND TAKE ONE TABLET BY MOUTH EVERY EVENING TAKE ONE TABLET BY MOUTH EVERY MORNING AND TAKE ONE TABLET BY MOUTH EVERY EVENING SOLD: 04/18/2020 [facility] 5 mg 04/14/2020 12:00:00 AM EDT tablet 30 TAKE ONE TABLET BY MOUTH EVERY EVENING TAKE ONE TABLET BY MOUTH EVERY EVENING SOLD: 04/14/2020 [facility] buspirone hydrochloride 10 MG Oral Tablet BUSPIRONE HCL 04/13/2020 12:00:00 AM EDT tablet 90 TAKE ONE TABLET BY MOUTH THR EE TIMES A DAY TAKE ONE TABLET BY MOUTH THREE TIMES A DAY SOLD: 06/04/2020 [facility] 100 mg 04/13/2020 12:00:00 AM EDT tablet 30 TAKE ONE TABLET BY MOUTH AT BEDTIME TAKE ONE TABLET BY MOUTH AT BEDTIME SOLD: 04/13/2020 [facility] buspirone hydrochloride 10 MG Oral Tablet BUSPIRONE HCL 04/13/2020 12:00:00 AM EDT tablet 90 TAKE ONE TABLET BY MOUTH THR EE TIMES A DAY TAKE ONE TABLET BY MOUTH THREE TIMES A DAY SOLD: 07/09/2020 [facility] 100 mg 04/13/2020 12:00:00 AM EDT tablet 30 TAKE ONE TABLET BY MOUTH AT BEDTIME TAKE ONE TABLET BY MOUTH AT BEDTIME SOLD: 05/25/2020 [facility] buspirone hydrochloride 10 MG Oral Tablet BUSPIRONE HCL 04/13/2020 12:00:00 AM EDT tablet 90 TAKE ONE TABLET BY MOUTH THR EE TIMES A DAY TAKE ONE TABLET BY MOUTH THREE TIMES A DAY SOLD: 04/13/2020 [facility] 1 mg 02/24/2020 12:00:00 AM EDT tablet 30 TAKE ONE TABLET BY MOUTH EVERY DAY TAKE ONE TABLET BY MOUTH EVERY DAY SOLD: 02/26/2020 [facility] 1 mg 02/24/2020 12:00:00 AM EDT tablet 30 TAKE ONE TABLET BY MOUTH EVERY DAY TAKE ONE TABLET BY MOUTH EVERY DAY SOLD: 04/04/2020 [facility] 100 mg 02/09/2020 12:00:00 AM EDT tablet 30 TAKE ONE TABLET BY MOUTH EVERY DAY TAKE ONE TABLET BY MOUTH EVERY DAY SOLD: 06/28/2020 [facility] 100 mg 02/09/2020 12:00:00 AM EDT tablet 30 TAKE ONE TABLET BY MOUTH EVERY DAY TAKE ONE TABLET BY MOUTH EVERY DAY SOLD: 03/10/2020 [facility] buspirone hydrochloride 10 MG Oral Tablet BUSPIRONE HCL 02/08/2020 12:00:00 AM EDT tablet 60 TAKE ONE TABLET BY MOUTH TWI CE A DAY TAKE ONE TABLET BY MOUTH TWICE A DAY SOLD: 03/17/2020 [facility] 2 mg 01/26/2020 12:00:00 AM EDT tablet 60 TAKE 1 TABLET BY MOUTH IN THE MORNING AND 1 TABLET IN THE EVENING DAILY TAKE 1 TABLET BY MOUTH IN THE MORNING AND 1 TABLET IN THE EVENING DAILY SOLD: 03/10/2020 [facility] Insurance Providers Payer name Policy type / Coverage type Policy ID Covered libertarian ID Covered libertarian's relationship to otero Policy Otero Plan Information IAS B [id number] Self [id number] [facility] I [id number] Self [id number] MEDICAID HEA [id number] S [id number] [facility] HEA [id number] S [id number] [facility] HMO/THEO FAMILY NO CO PAY [id number] P [id number] MEDICAID [id number] S [id number] [facility] HEA [id number] S [id number] MEDICAID [id number] SP [id number] [facility] COMMUNITY PLAN MCDO [id number] SP [id number] [facility] THEO [id number] SP [id number] [facility](MCAID) O [id number] S [id number] [facility] COMMUNITY PLAN [place] [id number] 18 [id number] [facility] [id number] ANSI-Medicaid [id number] MEDICAID [id number] SP [id number] ANSI-Medicaid [id number] ANSI-Medicaid [id number] ANSI-Medicaid [id number] ANSI-Medicaid [id number] [facility] [id number] SP [id number] [employer] AMERIC[employer] XIX HMO [id number] 18 [id number] ANS-Medicaid [id number] [facility] [place] [id number] 18 [id number] MEDICAID [place] [id number] [employer] COMMUNITY PLAN [id number] 18 [id number] [facility] [id number] SP [id number] [employer] COMMUNITY PLAN XIX [id number] 18 [id number] [employer] Community Plan Medicaid [id number] Self [id number] [facility] Commercial [id number] Self [id number] [facility] COMMUNITY PLAN MCDHMO [id number] SP [id number] MEDICAID UNAVAILABLE SP [facility] [id number] 18 [id number] [facility] [id number] 18 [id number] [facility] Health Maintenance Organization (HMO) 1 [id number] Self [id number] [facility] [id number] SP [id number] [employer] COMMUNITY PLAN MCDHMO [id number] SP [id number] MEDICAID [id number] SP [id number] [facility](MCAID) P [id number] S [id number] [facility] [id number] [facility] [id number] SP [id number] [facility] O [id number] S [id number] Problems, Conditions, and Diagnoses No Information Surgeries/Procedures Procedure Description Date Indications Data Source(s) Brief Emotional/Behav Assessment W/ Scoring Doc Per Standard Inst 05/11/2020 12:00:00 AM EST [facility] ([facility]) Results No Information Social History Code Duration Value Status Description Data Source(s ) ETOH Use 05/11/2020 12:00:00 AM EST Denies alcohol use complete d Denies alcohol use [facility] ([facility]) Vital Signs ID Date Data Source UNK Name Value Range Interpretation Code Description Data Source(s) Body height 69.5 [in_i] 69.5 [in_i] [facility] 5'9.50" Body weight 272.25 [lb_av] 272.25 [lb_av] [facility] T ([facility]) Body weight 123.493 kg 123.493 kg [facility] Body temperature 97.6 [degF] 97.6 [degF] [facility] ([facility]) Body temperature 36.4 Nicol 36.4 Nicol [facility] ( [facility]) Heart rate 96 /min 96 /min [facility] ([facility]) Oxygen saturation in Arterial blood by Pulse oximetry 94 % 94 % [facility] ([facility]) Respiratory rate 18 /min 18 /min [facility] ( [facility]) Systolic blood pressure 115 mm[Hg] 115 mm[Hg] M [facility]ENT ([facility]) Diastolic blood pressure 80 mm[Hg] 80 mm[Hg] [facility] ([facility]) Body mass index (BMI) [Ratio] 39.6 kg/m2 39.6 k g/m2 [facility] ([facility]) Body height 69.5 [in_i] 69.5 [in_i] [facility] 5'9.50" Body weight 269.50 [lb_av] 269.50 [lb_av] [facility] T ([facility]) Body weight 122.245 kg 122.245 kg [facility] Body temperature 97.8 [degF] 97.8 [degF] [facility] ([facility]) Body temperature 36.6 Nicol 36.6 Nicol [facility] ( [facility]) Heart rate 78 /min 78 /min [facility] ([facility]) Oxygen saturation in Arterial blood by Pulse oximetry 97 % 97 % [facility] ([facility]) Respiratory rate 20 /min 20 /min [facility] ( [facility]) Systolic blood pressure 118 mm[Hg] 118 mm[Hg] M [facility] ([facility]) Diastolic blood pressure 82 mm[Hg] 82 mm[Hg] [facility] ([facility]) Body mass index (BMI) [Ratio] 39.2 kg/m2 39.2 k g/m2 [facility] ([facility])
[2021-04-19] MEDS ORDERED: NS 1,000 ML IV ONE (17:35)
[2021-04-19] MEDS ORDERED: ONDANSETRON 4MG/2ML VIAL IV ONE (17:35)
[2021-04-19 18:24] LABS: BASO % 0.5 % (0.0-1.0); EOS # 0.1 10^3/uL (0.0-0.5); EOS % 1.4 % (0.0-3.0); HEMATOCRIT 44.1 % (42.0-52.0); HEMOGLOBIN 15.1 g/dl (13.5-17.5); LYMPH # 3.5 10^3/uL (1.5-5.0); LYMPH % 44.7 % (24.0-44.0); MEAN CORPUSCULAR HEMOGLOBIN 30.3 pg (27.0-33.0); MEAN CORPUSCULAR HGB CONC 34.2 g/dl (32.0-36.5); MEAN CORPUSCULAR VOLUME 88.6 fl (80.0-96.0); MONO # 0.6 10^3/uL (0.0-0.8); MONO % 8.1 % (2.0-8.0); NEUTROPHILS # 3.5 10^3/uL (1.5-8.5); NEUTROPHILS % 44.9 % (36.0-66.0); PLATELET COUNT, AUTOMATED 207 10^3/uL (150-450); RED BLOOD COUNT 4.98 10^6/uL (4.30-6.10); WHITE BLOOD COUNT 7.9 10^3/uL (4.0-10.0)
--- OUTSIDE RECORDS SUMMARY | 2021-04-19 18:54 | CCD ---
Author Author [facility] Organization [facility] Address Unknown Phone Unavailable Care Team Providers Care Hourly Associate Name Role Phone Tilbe, L Cathleen OIL WELL SERVICES SUPERINTENDENT Unavailable Unavailable Tilbe, L Cathleen OIL WELL SERVICES SUPERINTENDENT Unavailable Unavailable Tilbe, L Cathleen OIL WELL SERVICES SUPERINTENDENT Unavailable Unavailable Tilbe, L Cathleen OIL WELL SERVICES SUPERINTENDENT Unavailable Unavailable Tilbe, L Cathleen OIL WELL SERVICES SUPERINTENDENT Unavailable Unavailable Tilbe, L Cathleen OIL WELL SERVICES SUPERINTENDENT Unavailable Unavailable Tilbe, L Cathleen OIL WELL SERVICES SUPERINTENDENT Unavailable Unavailable Tilbe, L Cathleen OIL WELL SERVICES SUPERINTENDENT Unavailable Unavailable Tilbe, L Cathleen OIL WELL SERVICES SUPERINTENDENT Unavailable Unavailable Tilbe, L Cathleen OIL WELL SERVICES SUPERINTENDENT Unavailable Unavailable Tilbe, L Cathleen OIL WELL SERVICES SUPERINTENDENT Unavailable Unavailable Tilbe, L Cathleen OIL WELL SERVICES SUPERINTENDENT Unavailable Unavailable Tilbe, L Cathleen OIL WELL SERVICES SUPERINTENDENT Unavailable Unavailable Tilbe, L Cathleen OIL WELL SERVICES SUPERINTENDENT Unavailable Unavailable Tilbe, L Cathleen OIL WELL SERVICES SUPERINTENDENT Unavailable Unavailable Tilbe, L Cathleen OIL WELL SERVICES SUPERINTENDENT Unavailable Unavailable Tilbe, L Cathleen OIL WELL SERVICES SUPERINTENDENT Unavailable Unavailable Tilbe, L Cathleen OIL WELL SERVICES SUPERINTENDENT Unavailable Unavailable Tilbe, L Cathleen OIL WELL SERVICES SUPERINTENDENT Unavailable Unavailable Tilbe, L Cathleen OIL WELL SERVICES SUPERINTENDENT Unavailable Unavailable Tilbe, L Cathleen OIL WELL SERVICES SUPERINTENDENT Unavailable Unavailable Tilbe, L Cathleen OIL WELL SERVICES SUPERINTENDENT Unavailable Unavailable Tilbe, L Cathleen OIL WELL SERVICES SUPERINTENDENT Unavailable Unavailable Tilbe, L Cathleen OIL WELL SERVICES SUPERINTENDENT Unavailable Unavailable Tilbe, L Cathleen OIL WELL SERVICES SUPERINTENDENT Unavailable Unavailable Tilbe, L Cathleen OIL WELL SERVICES SUPERINTENDENT Unavailable Unavailable Tilbe, L Cathleen OIL WELL SERVICES SUPERINTENDENT Unavailable Unavailable Tilbe, L Cathleen OIL WELL SERVICES SUPERINTENDENT Unavailable Unavailable Tilbe, L Cathleen OIL WELL SERVICES SUPERINTENDENT Unavailable Unavailable Tilbe, L Cathleen OIL WELL SERVICES SUPERINTENDENT Unavailable Unavailable Tilbe, L Cathleen OIL WELL SERVICES SUPERINTENDENT Unavailable Unavailable Tilbe, L Cathleen OIL WELL SERVICES SUPERINTENDENT Unavailable Unavailable Tilbe, L Cathleen OIL WELL SERVICES SUPERINTENDENT Unavailable Unavailable Tilbe, L Cathleen OIL WELL SERVICES SUPERINTENDENT Unavailable Unavailable Tilbe, L Cathleen OIL WELL SERVICES SUPERINTENDENT Unavailable Unavailable Tilbe, L Cathleen OIL WELL SERVICES SUPERINTENDENT Unavailable Unavailable Tilbe, L Cathleen OIL WELL SERVICES SUPERINTENDENT Unavailable Unavailable Re-disclosure Warning The records that [...] is protected by Article 27-F of the [facility] Public Health law. If you continue you may have access to information: Regarding HIV / AIDS; Provided by facilities licensed or operated by the [facility] Office of Mental Health; or Provided by the [facility] Office for People With Developmental Disabilities. If such information is present, then the following [facility] mandated warning applies: This information has [...] law may result in a fine or assisted sentence or both. A general authorization for the release of medical or other information is NOT sufficient authorization for further disc losure. Family History Family Member Name Family Member Gender Family Member Status Date o f Status Description Data Source(s) Unknown Female Problem MEDENT ([facility]) Encounters Encounter Providers Location Date Indications Data Source(s ) Outpatient [facility]: [facility] 09:00:00 AM EST [facility] ([facility]) Outpatient Attender: [facility] 05/11/2020 09:00:00 AM EST MEDENT ([facility]) Immunizations Vaccine Date Status Description Data Source(s) COVID-19 VACCINE Pfizer 11/27/2020 12:00:00 AM EDT completed OrangeScapeSIIS Vaccine Series Complete: NOThis Data was Submitted to [facility] Via [employer]. Medications Medication Brand Name Start Date Product [...] BY MOUTH IN THE EVENING SOLD: 08/09/2020 Ch[facility] Sim buspirone hydrochloride 10 MG Oral Tablet BUSPIRONE [...] DAILY DOSE = 2 SOLD: 05/06/2020 [facility] meade 10 mg 05/06/2020 12:00:00 AM EST capsule 60 TAKE TWO CAPSULES BY MOUTH EVERY EVENING MAXIMUM DAILY DOSE = 2 TAKE TWO CAPSULES BY MOUTH EVERY EVENING MAXIMUM DAILY DOSE = 2 SOLD: 06/10/2020 [facility] meade 10 mg 04/26/2020 12:00:00 AM EST capsule 7 TAKE ONE CAPSULE BY MOUTH EVERY EVENING MAXIMUM DAILY DOSE = 1 CAPSULE TAKE ONE CAPSULE BY MOUTH EVERY EVENING MAXIMUM DAILY DOSE = 1 CAPSULE SOLD: 04/26/2020 [facility] Sim 5 mg 04/18/2020 12:00:00 AM EDT capsule [...] TABLET BY MOUTH EVERY EVENING SOLD: 07/20/2020 [facility] 1 mg 04/15/2020 12:00:00 AM EDT [...] TABLET IN THE EVENING DAILY SOLD: 03/10/2020 [facility] Insurance Providers Payer name Policy type / Coverage type Policy ID Covered alliance party ID Covered alliance party's relationship to otero Policy Otero Plan Information [facility] B [id number] Self [id number] [facility] I [id number] Self [id number] [facility](MCAID) O [id number] S [id number] MEDICAID HEA [id number] S [id number] [facility] HEA [id number] S [id number] [facility] HMO/THEO FAMILY NO CO PAY [id number] P [id number] MEDICAID M [id number] S [id number] [facility] HEA [id number] S 1 [id number] MEDICAID [id number] SP [id number] [facility] COMMUNITY PLAN MCDO [id number] SP [id number] [facility] [id number] SP [id number] [facility](MCAID) O [id number] S [id number] [facility] COMMUNITY PLAN [place] [id number] 18 [id number] [facility]-Medicaid [id number] ANSI-Medicaid [id number] MEDICAID [id number] SP [id number] ANSI-Medicaid [id number] [facility]-Medicaid [id number] ANSI-Medicaid [id number] [facility]-Medicaid [id number] [facility] [id number] SP [id number] UNHC AMERICHOICE XIX HMO [id number] 18 [id number] [facility]-Medicaid [id number] [facility] [place] [id number] 18 [id number] MEDICAID [place] [id number] UNHC COMMUNITY PLAN [id number] 18 [id number] [facility] [id number] SP [id number] [facility] COMMUNITY PLAN XIX [id number] 18 [id number] Un[facility] Community Plan Medicaid [id number] Self [id number] [facility] Commercial [id number] Self [id number] [facility] COMMUNITY PLAN MCDHMO [id number] SP [id number] MEDICAID UNAVAILABLE SP UNAVAILA BLE [facility] [place] [id number] 18 [id number] [facility] [id number] 18 [id number] [facility] Health Maintenance Organization (HMO) 1 [id number] Self [id number] [facility] [id number] SP [id number] [facility] COMMUNITY PLAN MCDHMO [id number] SP [id number] MEDICAID [id number] SP [id number] [facility](MCAID) P [id number] S [id number] [facility] [id number] 18 [id number] [place] [id number] SP [id number] [facility] COMMUNITY PLAN [facility] [id number] SP [id number] Problems, Conditions, and Diagnoses No Information Surgeries/Procedures Procedure Description Date Indications Data Source(s) Brief Emotional/Behav Assessment W/ Scoring Doc Per Standard Inst 05/11/2020 12:00:00 AM EST [facility] ([facility]) Results No Information Social History Code Duration Value Status Description Data Source(s ) ETOH Use 05/11/2020 12:00:00 AM EST Denies alcohol use complete d Denies alcohol use [facility] ([facility]) Vital Signs ID Date Data Source UNK Name Value Range Interpretation Code Description Data Source(s) Body temperature 36.4 Nicol 36.4 Nicol [facility] ( [facility] Body height 69.5 [in_i] 69.5 [in_i] [facility] 5'9.50" Body weight 272.25 [lb_av] 272.25 [lb_av] MEDEN T ([facility]) Body weight 123.493 kg 123.493 kg [facility] Body temperature 97.6 [degF] 97.6 [degF] [facility] ([facility]) Heart rate 96 /min 96 /min [facility] ([facility]) Oxygen saturation in Arterial blood by Pulse oximetry 94 % 94 % [facility] ([facility]) Respiratory rate 18 /min 18 /min [facility] ( [facility]) Systolic blood pressure 115 mm[Hg] 115 mm[Hg] M EDENT ([facility]) Diastolic blood pressure 80 mm[Hg] 80 mm[Hg] [facility] ([facility]) Body mass index (BMI) [Ratio] 39.6 kg/m2 39.6 k g/m2 [facility] ([facility]) Body height 69.5 [in_i] 69.5 [in_i] MEDENT ([facility]) 5'9.50" Body weight 269.50 [lb_av] 269.50 [lb_av] MEDEN T ([facility]) Body weight 122.245 kg 122.245 kg [facility] ([facility]) Body temperature 97.8 [degF] 97.8 [degF] [facility] ([facility]) Body temperature 36.6 Nicol 36.6 Nicol [facility] ( [facility]) Heart rate 78 /min 78 /min [facility] ([facility]) Oxygen saturation in Arterial blood by Pulse oximetry 97 % 97 % [facility] ([facility]) Respiratory rate 20 /min 20 /min [facility] ( [facility]) Systolic blood pressure 118 mm[Hg] 118 mm[Hg] [facility] Diastolic blood pressure 82 mm[Hg] 82 mm[Hg] [facility] ([facility]) Body mass index (BMI) [Ratio] 39.2 kg/m2 39.2 k g/m2 [facility] ([facility])
[2021-04-19 19:02] LABS: ALBUMIN 3.7 GM/DL (3.2-5.2); ALT/SGPT 57 U/L (12-78); BILIRUBIN,DIRECT 0.1 MG/DL (0.0-0.2); BILIRUBIN,TOTAL 0.5 MG/DL (0.2-1.0); BLOOD UREA NITROGEN 15 MG/DL (7-18); CALCIUM LEVEL 9.3 MG/DL (8.5-10.1); CARBON DIOXIDE LEVEL 30 MEQ/L (21-32); CHLORIDE LEVEL 111 MEQ/L (98-107); CREATININE FOR GFR 1.05 MG/DL (0.70-1.30); GLOMERULAR FILTRATION RATE > 60.0 (>60); GLUCOSE, FASTING 98 MG/DL (70-100); LIPASE 48 U/L (73-393); POTASSIUM SERUM 4.4 MEQ/L (3.5-5.1); SODIUM LEVEL 142 MEQ/L (136-145); TOTAL PROTEIN 6.9 GM/DL (6.4-8.2)
[2021-04-19 19:16] VITALS: BP 131/78
--- NOTE | 2021-04-19 19:40 | REPVR ---
PROCEDURE INFORMATION: Exam: CT Abdomen And Pelvis Without Contrast Exam date and time: 04/19/2021 6:59 PM Age: 25 years old Clinical indication: Other: R flank pain, hematuria TECHNIQUE: Imaging protocol: Computed tomography of the abdomen and pelvis without contrast. Radiation optimization: All CT scans at this facility use at least one of these dose optimization techniques: automated exposure control; mA and/or kV adjustment per patient size (includes targeted exams where dose is matched to clinical indication); or iterative reconstruction. COMPARISON: No relevant prior studies available. FINDINGS: Lungs: No suspicious mass or airspace process in the visualized lung bases. Liver: Liver is decreased in density, consistent with fatty infiltration. Gallbladder and bile ducts: Gallbladder is present and shows no evidence of gallstone. Pancreas: Noncontrast pancreas shows no obvious mass or adjacent fluid. Spleen: Noncontrast spleen shows no obvious focal deformity. Adrenal glands: Adrenal glands are normal in appearance. Kidneys and ureters: Kidneys show no stone or hydronephrosis. Stomach and bowel: Limited evaluation without enteric or IV contrast. No evidence of small bowel obstruction. Terminal ileum has normal appearance. No evidence of acute diverticulitis. Appendix: Normal caliber appendix is identified, with no adjacent inflammation. Intraperitoneal space: No pneumoperitoneum. Vasculature: No aortic aneurysm. Lymph nodes: No enlarged lymph nodes. Urinary bladder: Bladder is decompressed and not well evaluated. Reproductive: No overt enlargement of the prostate gland. Bones/joints: Bony structures show no acute fracture or destructive process. Soft tissues: Fat containing umbilical hernia is present. No concerning focal abnormality of the extra-abdominal and pelvic soft tissues. Other findings: No concerning asymmetry or abnormality at the GE junction. IMPRESSION: 1. No evidence of renal stone or obstructive uropathy. Limited evaluation of the bladder secondary to bladder under distension. 2. Hepatic steatosis Electronically signed by: Fredy Zarate On 04/19/2021 19:40:03 PM
[2021-04-19 21:29] LABS: GC DNA AMPLIFICATION NEGATIVE (NEGATIVE)
== END 2021-04-19 20:24 | disposition home or self-care (01) ==
LOC: M ED 14:50
DX: R30.0 Dysuria (principal); R10.9 Unspecified abdominal pain; K76.0 Fatty (change of) liver, not elsewhere classified; F17.290 Nicotine dependence, other tobacco product, uncomplicated; F12.10 Cannabis abuse, uncomplicated; Z79.899 Other long term (current) drug therapy
CPT/HCPCS: 74176; 80048; 80076; 81001; 83690; 85025; 87661; 96361; 96374; 99284; J2405

== ENCOUNTER 2021-05-17 18:36 | Emergency (ER) | payer OTHER ==
[~2021-05-17] VITALS: Ht 177.8 cm; Wt 113.3 kg
[2021-05-17 18:37] VITALS: BP 133/78
--- OUTSIDE RECORDS SUMMARY | 2021-05-17 18:43 | CCD ---
Author Author [facility] Organization [facility] Address Unknown Phone Unavailable Care Team Providers Care Trimming Press Operator Name Role Phone Tilbe, L Cathleen PRODUCTION PATTERN MAKER Unavailable Unavailable Tilbe, L Cathleen PRODUCTION PATTERN MAKER Unavailable Unavailable Tilbe, L Cathleen PRODUCTION PATTERN MAKER Unavailable Unavailable Tilbe, L Cathleen PRODUCTION PATTERN MAKER Unavailable Unavailable Tilbe, L Cathleen PRODUCTION PATTERN MAKER Unavailable Unavailable Tilbe, L Cathleen PRODUCTION PATTERN MAKER Unavailable Unavailable Tilbe, L Cathleen PRODUCTION PATTERN MAKER Unavailable Unavailable Tilbe, L Cathleen PRODUCTION PATTERN MAKER Unavailable Unavailable Tilbe, L Cathleen PRODUCTION PATTERN MAKER Unavailable Unavailable Tilbe, L Cathleen PRODUCTION PATTERN MAKER Unavailable Unavailable Tilbe, L Cathleen PRODUCTION PATTERN MAKER Unavailable Unavailable Tilbe, L Cathleen PRODUCTION PATTERN MAKER Unavailable Unavailable Tilbe, L Cathleen PRODUCTION PATTERN MAKER Unavailable Unavailable Tilbe, L Cathleen PRODUCTION PATTERN MAKER Unavailable Unavailable Tilbe, L Cathleen PRODUCTION PATTERN MAKER Unavailable Unavailable Tilbe, L Cathleen PRODUCTION PATTERN MAKER Unavailable Unavailable Tilbe, L Cathleen PRODUCTION PATTERN MAKER Unavailable Unavailable Tilbe, L Cathleen PRODUCTION PATTERN MAKER Unavailable Unavailable Tilbe, L Cathleen PRODUCTION PATTERN MAKER Unavailable Unavailable Tilbe, L Cathleen PRODUCTION PATTERN MAKER Unavailable Unavailable Tilbe, L Cathleen PRODUCTION PATTERN MAKER Unavailable Unavailable Tilbe, L Cathleen PRODUCTION PATTERN MAKER Unavailable Unavailable Tilbe, L Cathleen PRODUCTION PATTERN MAKER Unavailable Unavailable Tilbe, L Cathleen PRODUCTION PATTERN MAKER Unavailable Unavailable Tilbe, L Cathleen PRODUCTION PATTERN MAKER Unavailable Unavailable Tilbe, L Cathleen PRODUCTION PATTERN MAKER Unavailable Unavailable Tilbe, L Cathleen PRODUCTION PATTERN MAKER Unavailable Unavailable Tilbe, L Cathleen PRODUCTION PATTERN MAKER Unavailable Unavailable Tilbe, L Cathleen PRODUCTION PATTERN MAKER Unavailable Unavailable Tilbe, L Cathleen PRODUCTION PATTERN MAKER Unavailable Unavailable Tilbe, L Cathleen PRODUCTION PATTERN MAKER Unavailable Unavailable Tilbe, L Cathleen PRODUCTION PATTERN MAKER Unavailable Unavailable Tilbe, L Cathleen PRODUCTION PATTERN MAKER Unavailable Unavailable Tilbe, L Cathleen PRODUCTION PATTERN MAKER Unavailable Unavailable Tilbe, L Cathleen PRODUCTION PATTERN MAKER Unavailable Unavailable Tilbe, L Cathleen PRODUCTION PATTERN MAKER Unavailable Unavailable Tilbe, L Cathleen PRODUCTION PATTERN MAKER Unavailable Unavailable Tilbe, L Cathleen PRODUCTION PATTERN MAKER Unavailable Unavailable Re-disclosure Warning The records that [...] is protected by Article 27-F of the [facility] Public Health law. If you continue you may have access to information: Regarding HIV / AIDS; Provided by facilities licensed or operated by the [facility] Office of Mental Health; or Provided by the [facility] Office for People With Developmental Disabilities. If such information is present, then the following [facility] mandated warning applies: This information has [...] law may result in a fine or custodial sentence or both. A general authorization for the release of medical or other information is NOT sufficient authorization for further disc losure. Family History Family Member Name Family Member Gender Family Member Status Date o f Status Description Data Source(s) Unknown Female Problem MEDENT ([facility]) Encounters Encounter Providers Location Date Indications Data Source(s ) Outpatient Attender: Cathleen Madsen [facility] 05/21/2020 09:00:00 AM EST [facility] ([facility]) Outpatient Attender: Cathleen Madsen [facility] 05/11/2020 09:00:00 AM EST MEDENT ([facility]) Immunizations Vaccine Date Status Description Data Source(s) COVID-19 VACCINE Pfizer 11/27/2020 12:00:00 AM EDT completed [facility]IS Vaccine Series Complete: NOThis Data was Submitted to [facility] Via [employer]. Medications Medication Brand Name Start Date Product [...] DAILY DOSE = 2 SOLD: 07/11/2020 [facility] escobedos 10 mg 05/06/2020 12:00:00 AM [...] DAILY DOSE = 2 SOLD: 06/10/2020 [facility] Hightower ugs 10 mg 04/26/2020 12:00:00 AM EST capsule [...] MOUTH EVERY DAY SOLD: 06/28/2020 [facility] buspirone hydrochloride 10 MG Oral Tablet BUSPIRONE HCL 02/08/2020 12:00:00 AM EDT tablet 60 TAKE ONE TABLET BY MOUTH TWI CE A DAY TAKE ONE TABLET BY MOUTH TWICE A DAY SOLD: 03/17/2020 Chinyere herrera Insurance Providers Payer name Policy type / Coverage type Policy ID Covered democrat ID Covered democrat's relationship to otero Policy Otero [place] Information [place] B [id number] Self [id number] [facility] I [id number] Self [id number] [facility](MCAID) O [id number] S [id number] MEDICAID HEA [id number] S [id number] [facility] HEA [id number] S 1 [id number] [facility] HMO/THEO FAMILY NO CO PAY [id number] P [id number] MEDICAID M [id number] S [id number] [facility] HEA [id number] S 1 [id number] MEDICAID [id number] SP [id number] [facility] COMMUNITY PLAN MCDO [id number] SP [id number] [facility] THEO [id number] SP [id number] [facility]([place]CAID) O [id number] S [id number] [facility] COMM[place]ITY PLAN [place] [id number] 18 [id number] ANSI-Medicaid [id number] ANSI-Medicaid [id number] MEDICAID [id number] SP [id number] ANSI-Medicaid [id number] ANSI-Medicaid [id number] ANSI-Medicaid [id number] ANSI-Medicaid [id number] [facility] [id number] SP [id number] UNHC AMERICHOICE XIX HMO [id number] 18 [id number] ANSI-Medicaid [id number] [facility] [place] [id number] 18 [id number] MEDICAID [place] [id number] UN[facility] COMMUNITY PLAN [id number] 18 [id number] [facility] [id number] SP [id number] [facility] COMMUNITY PLAN XIX [id number] 18 [id number] [facility] Community Plan Medicaid [id number] Self [id number] [facility] Commercial [id number] Self [id number] [facility] COMMUNITY PLAN MCDO [id number] SP [id number] MEDICAID UNAVAILABLE SP UNAVAILA BLE [facility] [place] [id number] 18 [id number] [facility] [id number] 18 [id number] [facility] Health Maintenance Organization (HMO) 1 [id number] Self [id number] [facility] [id number] SP [id number] [facility] COMMUNITY PLAN MCDO [id number] SP [id number] MEDICAID [id number] SP [id number] [facility](MCAID) P [id number] S [id number] [facility] [id number] [place] [id number] SP [id number] [facility] COMMUNITY PLAN MCDO [id number] SP [id number] Problems, Conditions, and Diagnoses No Information Surgeries/Procedures Procedure Description Date Indications Data Source(s) Brief Emotional/Behav Assessment W/ Scoring Doc Per Standard Inst 05/11/2020 12:00:00 AM EST [facility] ([facility]) Results No Information Social History Code Duration Value Status Description Data Source(s ) ETOH Use 05/11/2020 12:00:00 AM EST Denies alcohol use complete d Denies alcohol use [facility] ([facility]) Vital Signs ID Date Data Source UNK Name Value Range Interpretation Code Description Data Source(s) Body temperature 36.4 Nicol 36.4 Nicol [facility] Body height 69.5 [in_i] 69.5 [in_i] [facility] ([facility]) 5'9.50" Body weight 272.25 [lb_av] 272.25 [lb_av] MEDEN T ([facility]) Body weight 123.493 kg 123.493 kg [facility] Body temperature 97.6 [degF] 97.6 [degF] [facility] ([facility]) Heart rate 96 /min 96 /min [facility] ([facility]) Oxygen saturation in Arterial blood by Pulse oximetry 94 % 94 % [facility] ([facility]) Respiratory rate 18 /min 18 /min [facility] ( [facility]) Systolic blood pressure 115 mm[Hg] 115 mm[Hg] [facility] ([facility]) Diastolic blood pressure 80 mm[Hg] 80 mm[Hg] [facility] ([facility]) Body mass index (BMI) [Ratio] 39.6 kg/m2 39.6 k g/m2 [facility] ([facility]) Systolic blood pressure 118 mm[Hg] 118 mm[Hg] [facility] ([facility]) Diastolic blood pressure 82 mm[Hg] 82 mm[Hg] [facility] ([facility]) Body mass index (BMI) [Ratio] 39.2 kg/m2 39.2 k g/m2 [facility] ([facility]) Body height 69.5 [in_i] 69.5 [in_i] [facility] ([facility]) 5'9.50" Body weight 269.50 [lb_av] 269.50 [lb_av] [facility]EN T ([facility]) Body weight 122.245 kg 122.245 kg [facility] Body temperature 97.8 [degF] 97.8 [degF] [facility] ([facility]) Body temperature 36.6 Nicol 36.6 Nicol [facility] ( [facility]) Heart rate 78 /min 78 /min [facility] ([facility]) Oxygen saturation in Arterial blood by Pulse oximetry 97 % 97 % [facility] ([facility]) Respiratory rate 20 /min 20 /min [facility] ( [facility])
[2021-05-17] MEDS ORDERED: VIST50CA PO (20:03)
[2021-05-17] MEDS ORDERED: hydrOXYzine 50 MG TAB PO ONE (20:05)
--- OUTSIDE RECORDS SUMMARY | 2021-05-17 20:20 | CCD ---
Author Author [facility] Organization [facility] Address Unknown Phone Unavailable Care Team Providers Care Hospital Nurse Liaison Name Role Phone Tilbe, L Cathleen MEDICAL RECRUITER Unavailable Unavailable Tilbe, L Cathleen MEDICAL RECRUITER Unavailable Unavailable Tilbe, L Cathleen MEDICAL RECRUITER Unavailable Unavailable Tilbe, L Cathleen MEDICAL RECRUITER Unavailable Unavailable Tilbe, L Cathleen MEDICAL RECRUITER Unavailable Unavailable Tilbe, L Cathleen MEDICAL RECRUITER Unavailable Unavailable Tilbe, L Cathleen MEDICAL RECRUITER Unavailable Unavailable Tilbe, L Cathleen MEDICAL RECRUITER Unavailable Unavailable Tilbe, L Cathleen MEDICAL RECRUITER Unavailable Unavailable Tilbe, L Cathleen MEDICAL RECRUITER Unavailable Unavailable Tilbe, L Cathleen MEDICAL RECRUITER Unavailable Unavailable Tilbe, L Cathleen MEDICAL RECRUITER Unavailable Unavailable Tilbe, L Cathleen MEDICAL RECRUITER Unavailable Unavailable Tilbe, L Cathleen MEDICAL RECRUITER Unavailable Unavailable Tilbe, L Cathleen MEDICAL RECRUITER Unavailable Unavailable Tilbe, L Cathleen MEDICAL RECRUITER Unavailable Unavailable Tilbe, L Cathleen MEDICAL RECRUITER Unavailable Unavailable Tilbe, L Cathleen MEDICAL RECRUITER Unavailable Unavailable Tilbe, L Cathleen MEDICAL RECRUITER Unavailable Unavailable Tilbe, L Cathleen MEDICAL RECRUITER Unavailable Unavailable Tilbe, L Cathleen MEDICAL RECRUITER Unavailable Unavailable Tilbe, L Cathleen MEDICAL RECRUITER Unavailable Unavailable Tilbe, L Cathleen MEDICAL RECRUITER Unavailable Unavailable Tilbe, L Cathleen MEDICAL RECRUITER Unavailable Unavailable Tilbe, L Cathleen MEDICAL RECRUITER Unavailable Unavailable Tilbe, L Cathleen MEDICAL RECRUITER Unavailable Unavailable Tilbe, L Cathleen MEDICAL RECRUITER Unavailable Unavailable Tilbe, L Cathleen MEDICAL RECRUITER Unavailable Unavailable Tilbe, L Cathleen MEDICAL RECRUITER Unavailable Unavailable Tilbe, L Cathleen MEDICAL RECRUITER Unavailable Unavailable Tilbe, L Cathleen MEDICAL RECRUITER Unavailable Unavailable Tilbe, L Cathleen MEDICAL RECRUITER Unavailable Unavailable Tilbe, L Cathleen MEDICAL RECRUITER Unavailable Unavailable Tilbe, L Cathleen MEDICAL RECRUITER Unavailable Unavailable Tilbe, L Cathleen MEDICAL RECRUITER Unavailable Unavailable Tilbe, L Cathleen MEDICAL RECRUITER Unavailable Unavailable Tilbe, L Cathleen MEDICAL RECRUITER Unavailable Unavailable Tilbe, L Cathleen MEDICAL RECRUITER Unavailable Unavailable Re-disclosure Warning The records that [...] is protected by Article 27-F of the [facility] Public Health law. If you continue you may have access to information: Regarding HIV / AIDS; Provided by facilities licensed or operated by the [facility] Office of Mental Health; or Provided by the [facility] Office for People With Developmental Disabilities. If such information is present, then the following [facility] mandated warning applies: This information has been [...] law may result in a fine or fdc sentence or both. A general authorization for the release of medical or other information is NOT sufficient authorization for further disc losure. Family History Family Member Name Family Member Gender Family Member Status Date o f Status Description Data Source(s) Unknown Female Problem MEDENT ([facility]) Encounters Encounter Providers Location Date Indications Data Source(s ) Outpatient Attender: Cathleen Madsen [facility] 05/21/2020 09:00:00 AM EST MEDENT ([facility]) Outpatient Attender: Cathleen Madsen [facility] 05/11/2020 09:00:00 AM EST MEDENT ([facility]) Immunizations Vaccine Date Status Description Data Source(s) COVID-19 VACCINE Pfizer 11/27/2020 12:00:00 AM EDT completed NYSIIS Vaccine Series Complete: NOThis Data was Submitted to [facility] Via [employer]. Medications Medication Brand Name Start Date Product [...] DAY IN THE EVENING SOLD : 08/18/2020 [facility] 10 mg 08/02/2020 12:00:00 AM EST [...] relationship to otero Policy Otero Plan Information NYTrish Dillard [id number] Self [id number] [facility] I [id number] Self [id number] [facility]CAID) O [id number] S [id number] MEDICAID HEA [id number] S [id number] [facility] HEA [id number] S [id number] [facility] HMO/THEO FAMILY NO CO PAY [id number] P [id number] MEDICAID M [id number] S [id number] [facility] HEA [id number] S [id number] MEDICAID [id number] SP [id number] [facility] COMMUNITY PLAN MCDO [id number] SP [id number] [facility] [id number] SP [id number] [facility]CAID) O [id number] S [id number] [facility] [place] [id number] 18 [id number] ANSI-Medicaid [id number] ANSI-Medicaid [id number] MEDICAID [id number] SP [id number] ANSI-Medicaid [id number] ANSI-Medicaid [id number] ANSI-Medicaid [id number] ANS-Medicaid [id number] [facility] [id number] SP [id number] UN[employer] AMERICHOICE XIX HMO [id number] 18 [id number] ANSI-Medicaid [id number] [facility] [place] [id number] 18 [id number] MEDICAID CO [id number] [facility] COMMUNITY PLAN [id number] 18 [id number] [facility] [id number] SP [id number] [facility] COMMUNITY PLAN XIX [id number] 18 [id number] [facility] Community Plan Medicaid [id number] Self [id number] [facility] Commercial [id number] Self [id number] [facility] COMMUNITY PLAN MCDHMO [id number] SP [id number] MEDICAID UNAVAILABLE SP UNAVAILA BLE [facility] MDCR [place] [id number] 18 [id number] [facility] [id number] 18 [id number] [facility] Health Maintenance Organization (HMO) 1 [id number] Self [id number] [facility] [id number] SP [id number] [facility] COMMUNITY PLAN MCDHMO [id number] SP [id number] MEDICAID [id number] SP [id number] [facility](MCAID) P [id number] S [id number] [facility] [id number] 18 [id number] [place] [id number] SP [id number] 200 [id number] [facility] COMMUNITY PLAN MCDO [id number] SP [id number] Problems, Conditions, and Diagnoses No Information Surgeries/Procedures Procedure Description Date Indications Data Source(s) Brief Emotional/Behav Assessment W/ Scoring Doc Per Standard Inst 05/11/2020 12:00:00 AM EST [facility] Results No Information Social History Code Duration Value Status Description Data Source(s ) ETOH Use 05/11/2020 12:00:00 AM EST Denies alcohol use complete d Denies alcohol use [facility] ([facility]) Vital Signs ID Date Data Source UNK Name Value Range Interpretation Code Description Data Source(s) Body height 69.5 [in_i] 69.5 [in_i] MEDENT ([facility]) 5'9.50" Body weight 272.25 [lb_av] 272.25 [lb_av] MEDEN T ([facility]) Body weight 123.493 kg 123.493 kg MEDENT ([facility]) Body temperature 97.6 [degF] 97.6 [degF] [facility] ([facility]) Body temperature 36.4 Niclo 36.4 Nicol [facility] ( [facility]) Heart rate 96 /min 96 /min [facility] ([facility]) Oxygen saturation in Arterial blood by Pulse oximetry 94 % 94 % [facility] ([facility]) Respiratory rate 18 /min 18 /min [facility] ( [facility]) Systolic blood pressure 115 mm[Hg] 115 mm[Hg] [facility] Diastolic blood pressure 80 mm[Hg] 80 mm[Hg] [facility] ([facility]) Body mass index (BMI) [Ratio] 39.6 kg/m2 39.6 k g/m2 [facility] ([facility]) Body height 69.5 [in_i] 69.5 [in_i] [facility] ([facility]) 5'9.50" Body weight 269.50 [lb_av] 269.50 [lb_av] MEDEN T ([facility]) Body weight 122.245 kg 122.245 kg MEDENT ([facility]) Body temperature 97.8 [degF] 97.8 [degF] [facility] ([facility]) Body temperature 36.6 Nicol 36.6 Nicol [facility] ( [facility]) Heart rate 78 /min 78 /min [facility] ([facility]) Oxygen saturation in Arterial blood by Pulse oximetry 97 % 97 % [facility] ([facility]) Respiratory rate 20 /min 20 /min [facility] ( [facility]) Systolic blood pressure 118 mm[Hg] 118 mm[Hg] M [facility] ([facility]) Diastolic blood pressure 82 mm[Hg] 82 mm[Hg] [facility] ([facility]) Body mass index (BMI) [Ratio] 39.2 kg/m2 39.2 k g/m2 [facility])
== END 2021-05-17 20:42 | disposition home or self-care (01) ==
LOC: M ED 18:36
DX: F41.9 Anxiety disorder, unspecified (principal); G47.00 Insomnia, unspecified; F33.9 Major depressive disorder, recurrent, unspecified; F17.200 Nicotine dependence, unspecified, uncomplicated; Z86.69 Personal history of other diseases of the nervous system and sense organs

== ENCOUNTER 2021-05-20 06:02 | Emergency (ER) | payer OTHER ==
[~2021-05-20] VITALS: Ht 177.8 cm; Wt 113.2 kg
[~2021-05-20 06:02] MED LIST changes: +VIST50CA PO
[2021-05-20 06:03] VITALS: BP 128/73
[2021-05-20 07:59] LABS: BASO # 0.1 10^3/uL (0.0-0.2); BASO % 0.7 % (0.0-1.0); EOS # 0.2 10^3/uL (0.0-0.5); EOS % 1.7 % (0.0-3.0); HEMATOCRIT 46.9 % (42.0-52.0); LYMPH # 4.8 10^3/uL (1.5-5.0); MEAN CORPUSCULAR HEMOGLOBIN 30.2 pg (27.0-33.0); MEAN CORPUSCULAR HGB CONC 34.1 g/dl (32.0-36.5); MEAN CORPUSCULAR VOLUME 88.5 fl (80.0-96.0); MONO # 0.9 10^3/uL (0.0-0.8); MONO % 8.7 % (2.0-8.0); NEUTROPHILS # 4.4 10^3/uL (1.5-8.5); NEUTROPHILS % 42.6 % (36.0-66.0); PLATELET COUNT, AUTOMATED 217 10^3/uL (150-450); WHITE BLOOD COUNT 10.3 10^3/uL (4.0-10.0)
[2021-05-20 08:29] LABS: ALBUMIN 3.8 GM/DL (3.2-5.2); ALT/SGPT 48 U/L (12-78); BILIRUBIN,DIRECT 0.1 MG/DL (0.0-0.2); BILIRUBIN,TOTAL 0.4 MG/DL (0.2-1.0); BLOOD UREA NITROGEN 18 MG/DL (7-18); CALCIUM LEVEL 9.3 MG/DL (8.5-10.1); CARBON DIOXIDE LEVEL 26 MEQ/L (21-32); CHLORIDE LEVEL 109 MEQ/L (98-107); CREATININE FOR GFR 0.98 MG/DL (0.70-1.30); GLOMERULAR FILTRATION RATE > 60.0 (>60); GLUCOSE, FASTING 99 MG/DL (70-100); LIPASE 63 U/L (73-393); POTASSIUM SERUM 4.2 MEQ/L (3.5-5.1); SODIUM LEVEL 142 MEQ/L (136-145); TOTAL PROTEIN 7.1 GM/DL (6.4-8.2)
[2021-05-20] MEDS ORDERED: NAPR-885 PO (09:16)
[2021-05-20] MEDS ORDERED: OMEP40CA4 PO (09:19)
[2021-06-26] MEDS ORDERED: OMEP-173 (07:10)
[2021-07-06] MEDS ORDERED: VIST50CA PO (08:43)
== END 2021-05-20 09:34 | disposition home or self-care (01) ==
LOC: M ED 06:02
DX: K76.0 Fatty (change of) liver, not elsewhere classified (principal); R10.9 Unspecified abdominal pain; F44.5 Conversion disorder with seizures or convulsions; F20.9 Schizophrenia, unspecified; F32.9 Major depressive disorder, single episode, unspecified; F41.9 Anxiety disorder, unspecified; F17.290 Nicotine dependence, other tobacco product, uncomplicated; F12.10 Cannabis abuse, uncomplicated

== ENCOUNTER 2021-06-01 03:17 | Emergency (ER) | payer OTHER ==
[~2021-06-01] VITALS: Ht 177.8 cm; Wt 113.8 kg
[2021-06-01 03:17] VITALS: BP 105/96
[~2021-06-01 03:17] MED LIST changes: +NAPR-885 PO; +OMEP40CA4 PO
--- OUTSIDE RECORDS SUMMARY | 2021-06-01 03:25 | CCD ---
Author Author [facility] Organization [facility] Address Unknown Phone Unavailable Care Team Providers Care Triage Licensed Practical Nurse Name Role Phone Tilbe, L Cathleen PROPAGATOR Unavailable Unavailable Tilbe, L Cathleen PROPAGATOR Unavailable Unavailable Tilbe, L Cathleen PROPAGATOR Unavailable Unavailable Tilbe, L Cathleen PROPAGATOR Unavailable Unavailable Tilbe, L Cathleen PROPAGATOR Unavailable Unavailable Tilbe, L Cathleen PROPAGATOR Unavailable Unavailable Tilbe, L Cathleen PROPAGATOR Unavailable Unavailable Tilbe, L Acthleen PROPAGATOR Unavailable Unavailable Tilbe, L Cathleen PROPAGATOR Unavailable Unavailable Tilbe, L Cathleen PROPAGATOR Unavailable Unavailable Tilbe, L Cathleen PROPAGATOR Unavailable Unavailable Tilbe, L Cathleen PROPAGATOR Unavailable Unavailable Tilbe, L Cathleen PROPAGATOR Unavailable Unavailable Tilbe, L Cathleen PROPAGATOR Unavailable Unavailable Tilbe, L Cathleen PROPAGATOR Unavailable Unavailable Tilbe, L Cathleen PROPAGATOR Unavailable Unavailable Tilbe, L Cathleen PROPAGATOR Unavailable Unavailable Tilbe, L Cathleen PROPAGATOR Unavailable Unavailable Tilbe, L Cathleen PROPAGATOR Unavailable Unavailable Tilbe, L Cathleen PROPAGATOR Unavailable Unavailable Tilbe, L Cathleen PROPAGATOR Unavailable Unavailable Tilbe, L Cathleen PROPAGATOR Unavailable Unavailable Tilbe, L Cathleen PROPAGATOR Unavailable Unavailable Tilbe, L Cathleen PROPAGATOR Unavailable Unavailable Tilbe, L Cathleen PROPAGATOR Unavailable Unavailable Tilbe, L Cathleen PROPAGATOR Unavailable Unavailable Tilbe, L Cathleen PROPAGATOR Unavailable Unavailable Tilbe, L Cathleen PROPAGATOR Unavailable Unavailable Tilbe, L Cathleen PROPAGATOR Unavailable Unavailable Tilbe, L Cathleen PROPAGATOR Unavailable Unavailable Tilbe, L Cathleen PROPAGATOR Unavailable Unavailable Tilbe, L Cathleen PROPAGATOR Unavailable Unavailable Tilbe, L Cathleen PROPAGATOR Unavailable Unavailable Tilbe, L Cathleen PROPAGATOR Unavailable Unavailable Tilbe, L Cathleen PROPAGATOR Unavailable Unavailable Tilbe, L Cathleen PROPAGATOR Unavailable Unavailable Tilbe, L Cathleen PROPAGATOR Unavailable Unavailable Tilbe, L Cathleen PROPAGATOR Unavailable Unavailable Tilbe, L Cathleen PROPAGATOR Unavailable Unavailable Re-disclosure Warning The records that [...] is protected by Article 27-F of the [facility] Public Health law. If you continue you may have access to information: Regarding HIV / AIDS; Provided by facilities licensed or operated by the [facility] Office of Mental Health; or Provided by the [facility] Office for People With Developmental Disabilities. If such information is present, then the following [facility] mandated warning applies: This information has [...] law may result in a fine or halfway sentence or both. A general authorization for the release of medical or other information is NOT sufficient authorization for further disc losure. Family History Family Member Name Family Member Gender Family Member Status Date o f Status Description Data Source(s) Unknown Female Problem MEDENT ([facility]) Encounters Encounter Providers Location Date Indications Data Source(s ) Outpatient Attender: Cathleen Madsen [facility] 05/21/2020 09:00:00 AM EST [facility] ([facility]) Outpatient Attender: Cathleen Madsen [facility] 05/11/2020 09:00:00 AM EST MEDENT ([facility]) Immunizations Vaccine Date Status Description Data Source(s) COVID-19 VACCINE Pfizer 11/27/2020 12:00:00 AM EDT completed NYSIIS Vaccine Series Complete: NOThis Data was Submitted to [facility] Via [employer]. Medications Medication Brand Name Start Date Product [...] MOUTH IN THE EVENING SOLD: 08/09/2020 [facility] buspirone hydrochloride 10 MG Oral Tablet [...] DAILY DOSE = 2 SOLD: 07/11/2020 [facility] 10 mg 05/06/2020 12:00:00 AM EST capsule 60 TAKE TWO CAPSULES BY MOUTH EVERY EVENING MAXIMUM DAILY DOSE = 2 TAKE TWO CAPSULES BY MOUTH EVERY EVENING MAXIMUM DAILY DOSE = 2 SOLD: 05/06/2020 [facility] 10 mg 05/06/2020 12:00:00 AM EST capsule [...] TABLET BY MOUTH EVERY EVENING SOLD: 06/10/2020 [facility] 1 mg 04/15/2020 12:00:00 AM [...] TIMES A DAY SOLD: 06/04/2020 [facility] buspirone hydrochloride 10 MG Oral Tablet BUSPIRONE HCL 04/13/2020 12:00:00 AM EDT tablet 90 TAKE ONE TABLET BY MOUTH THR EE TIMES A DAY TAKE ONE TABLET BY MOUTH THREE TIMES A DAY SOLD: 04/13/2020 [facility] 100 mg 04/13/2020 12:00:00 AM [...] MOUTH AT BEDTIME SOLD: 05/25/2020 [facility] 1 mg 02/24/2020 12:00:00 AM EDT tablet 30 TAKE ONE TABLET BY MOUTH EVERY DAY TAKE ONE TABLET BY MOUTH EVERY DAY SOLD: 04/04/2020 [facility] 100 mg 02/09/2020 12:00:00 AM EDT tablet 30 TAKE ONE TABLET BY MOUTH EVERY DAY TAKE ONE TABLET BY MOUTH EVERY DAY SOLD: 06/28/2020 [facility] Insurance Providers Payer name Policy type / Coverage type Policy ID Covered libertarian ID Covered libertarian's relationship to otero Policy [place] Information [place] B [id number] Self [id number] [facility] I [id number] Self [id number] [facility](MCAID) O [id number] S [id number] MEDICAID HEA [id number] S [id number] [facility] HEA [id number] S [id number] [facility] HMO/THEO FAMILY NO CO PAY [id number] P [id number] MEDICAID M [id number] S [id number] [facility] HEA [id number] S [id number] MEDICAID [id number] SP [id number] [facility] COMMUNITY PLAN MCDO [id number] SP [id number] [facility] [id number] SP [id number] [facility](MCAID) O [id number] S [id number] [facility] [place] [id number] 18 [id number] [facility] [id number] ANSI-Medicaid [id number] MEDICAID [id number] SP [id number] ANSI-Medicaid [id number] ANSI-Medicaid [id number] ANSI-Medicaid [id number] [facility] [id number] [facility] [id number] SP [id number] UNHC AMERICHOICE XIX HMO [id number] 18 [id number] ANSI-Medicaid [id number] [facility] [place] [id number] 18 [id number] MEDICAID CO [id number] UNHC COMMUNITY PLAN [id number] 18 [id number] [facility] [id number] SP [id number] [facility] COMMUNITY PLAN XIX [id number] 18 [id number] [facility] Community Plan Medicaid [id number] Self [id number] [facility] Commercial [id number] Self [id number] [facility] COMMUNITY PLAN MCDO [id number] SP [id number] MEDICAID UNAVAILABLE SP UNAVAILA BLE [facility] [id number] 18 [id number] [facility] [id number] 18 [id number] [facility] Health Maintenance Organization (HMO) 1 [id number] Self [id number] [facility] [id number] SP [id number] [facility] COMMUNITY PLAN MCDO [id number] SP [id number] MEDICAID [id number] SP [id number] [facility](MCAID) P [id number] S [id number] [facility] [id number] [place] [id number] SP [id number] [facility] COMMUNITY PLAN [facility] [id number] SP [id number] Problems, Conditions, and Diagnoses No Information Surgeries/Procedures Procedure Description Date Indications Data Source(s) Brief Emotional/Behav Assessment W/ Scoring Doc Per Standard Inst 05/11/2020 12:00:00 AM EST [facility] ([facility]) Results No Information Social History Code Duration Value Status Description Data Source(s ) ETOH Use 05/11/2020 12:00:00 AM EST Denies alcohol use complete d Denies alcohol use MEDENT ([facility]) Vital Signs ID Date Data Source UNK Name Value Range Interpretation Code Description Data Source(s) Body height 69.5 [in_i] 69.5 [in_i] MEDENT ([facility]) 5'9.50" Body weight 272.25 [lb_av] 272.25 [lb_av] MEDEN T ([facility]) Body weight 123.493 kg 123.493 kg MEDENT ([facility]) Body temperature 97.6 [degF] 97.6 [degF] [facility] ([facility]) Body temperature 36.4 Nicol 36.4 Nicol MEDENT ( [facility]) Heart rate 96 /min 96 /min [facility] ([facility]) Oxygen saturation in Arterial blood by Pulse oximetry 94 % 94 % [facility] ([facility]) Respiratory rate 18 /min 18 /min [facility] ( [facility]) Systolic blood pressure 115 mm[Hg] 115 mm[Hg] M EDENT ([facility]) Diastolic blood pressure 80 mm[Hg] 80 mm[Hg] [facility] ([facility]) Body mass index (BMI) [Ratio] 39.6 kg/m2 39.6 k g/m2 [facility] ([facility]) Body height 69.5 [in_i] 69.5 [in_i] MEDENT ([facility]) 5'9.50" Body weight 269.50 [lb_av] 269.50 [lb_av] MEDEN T ([facility]) Body weight 122.245 kg 122.245 kg MEDENT ([facility]) Body temperature 97.8 [degF] 97.8 [degF] [facility] ([facility]) Body temperature 36.6 Nicol 36.6 Nicol [facility] Heart rate 78 /min 78 /min [facility] Oxygen saturation in Arterial blood by Pulse oximetry 97 % 97 % MEDENT ([facility]) Respiratory rate 20 /min 20 /min [facility] ( [facility]) Systolic blood pressure 118 mm[Hg] 118 mm[Hg] M [facility] ([facility]) Diastolic blood pressure 82 mm[Hg] 82 mm[Hg] [facility] ([facility]) Body mass index (BMI) [Ratio] 39.2 kg/m2 39.2 k g/m2 [facility])
--- OUTSIDE RECORDS SUMMARY | 2021-06-01 04:20 | CCD ---
Author Author [facility] Organization [facility] Address Unknown Phone Unavailable Care Team Providers Care Needle Process Felt Goods Supervisor Name Role Phone Tilbe, L Cathleen MD SENIOR RESEARCH SCIENTIST Unavailable Unavailable Tilbe, L Cathleen MD SENIOR RESEARCH SCIENTIST Unavailable Unavailable Tilbe, L Cathleen MD SENIOR RESEARCH SCIENTIST Unavailable Unavailable Tilbe, L Cathleen MD SENIOR RESEARCH SCIENTIST Unavailable Unavailable Tilbe, L Cathleen MD SENIOR RESEARCH SCIENTIST Unavailable Unavailable Tilbe, L Cathleen MD SENIOR RESEARCH SCIENTIST Unavailable Unavailable Tilbe, L Cathleen MD SENIOR RESEARCH SCIENTIST Unavailable Unavailable Tilbe, L Cathleen MD SENIOR RESEARCH SCIENTIST Unavailable Unavailable Tilbe, L Cathleen MD SENIOR RESEARCH SCIENTIST Unavailable Unavailable Tilbe, L Cathleen MD SENIOR RESEARCH SCIENTIST Unavailable Unavailable Tilbe, L Cathleen MD SENIOR RESEARCH SCIENTIST Unavailable Unavailable Tilbe, L Cathleen MD SENIOR RESEARCH SCIENTIST Unavailable Unavailable Tilbe, L Cathleen MD SENIOR RESEARCH SCIENTIST Unavailable Unavailable Tilbe, L Cathleen MD SENIOR RESEARCH SCIENTIST Unavailable Unavailable Tilbe, L Cathleen MD SENIOR RESEARCH SCIENTIST Unavailable Unavailable Tilbe, L Cathleen MD SENIOR RESEARCH SCIENTIST Unavailable Unavailable Tilbe, L Cathleen MD SENIOR RESEARCH SCIENTIST Unavailable Unavailable Tilbe, L Cathleen MD SENIOR RESEARCH SCIENTIST Unavailable Unavailable Tilbe, L Cathleen MD SENIOR RESEARCH SCIENTIST Unavailable Unavailable Tilbe, L Cathleen MD SENIOR RESEARCH SCIENTIST Unavailable Unavailable Tilbe, L Cathleen MD SENIOR RESEARCH SCIENTIST Unavailable Unavailable Tilbe, L Cathleen MD SENIOR RESEARCH SCIENTIST Unavailable Unavailable Tilbe, L Cathleen MD SENIOR RESEARCH SCIENTIST Unavailable Unavailable Tilbe, L Cathleen MD SENIOR RESEARCH SCIENTIST Unavailable Unavailable Tilbe, L Cathleen MD SENIOR RESEARCH SCIENTIST Unavailable Unavailable Tilbe, L Cathleen MD SENIOR RESEARCH SCIENTIST Unavailable Unavailable Tilbe, L Cathleen MD SENIOR RESEARCH SCIENTIST Unavailable Unavailable Tilbe, L Cathleen MD SENIOR RESEARCH SCIENTIST Unavailable Unavailable Tilbe, L Cathleen MD SENIOR RESEARCH SCIENTIST Unavailable Unavailable Tilbe, L Cathleen MD SENIOR RESEARCH SCIENTIST Unavailable Unavailable Tilbe, L Cathleen MD SENIOR RESEARCH SCIENTIST Unavailable Unavailable Tilbe, L Cathleen MD SENIOR RESEARCH SCIENTIST Unavailable Unavailable Tilbe, L Cathleen MD SENIOR RESEARCH SCIENTIST Unavailable Unavailable Tilbe, L Cathleen MD SENIOR RESEARCH SCIENTIST Unavailable Unavailable Tilbe, L Cathleen MD SENIOR RESEARCH SCIENTIST Unavailable Unavailable Tilbe, L Cathleen MD SENIOR RESEARCH SCIENTIST Unavailable Unavailable Tilbe, L Cathleen MD SENIOR RESEARCH SCIENTIST Unavailable Unavailable Tilbe, L Cathleen MD SENIOR RESEARCH SCIENTIST Unavailable Unavailable Tilbe, L Cathleen MD SENIOR RESEARCH SCIENTIST Unavailable Unavailable Re-disclosure Warning The records that [...] is protected by Article 27-F of the [facility] Public Health law. If you continue you may have access to information: Regarding HIV / AIDS; Provided by facilities licensed or operated by the [facility] Office of Mental Health; or Provided by the [facility] Office for People With Developmental Disabilities. If such information is present, then the following [facility] mandated warning applies: This information has been [...] law may result in a fine or half-way sentence or both. A general authorization for the release of medical or other information is NOT sufficient authorization for further disc losure. Family History Family Member Name Family Member Gender Family Member Status Date o f Status Description Data Source(s) Unknown Female Problem [facility] ([facility]) Encounters Encounter Providers Location Date Indications Data Source(s ) Outpatient Attender: Cathleen Madsen [facility] 05/21/2020 09:00:00 AM EST [facility] ([facility]) Outpatient Attender: Cathleen Madsen [facility] 05/11/2020 09:00:00 AM EST [facility] ([facility]) Immunizations Vaccine Date Status Description Data Source(s) COVID-19 VACCINE Pfizer 11/27/2020 12:00:00 AM EDT completed [facility] Vaccine Series Complete: NOThis Data was Submitted to [facility]. Medications Medication Brand Name Start Date Product [...] otero Policy [place] [id number] Self [id number] [facility] I [id number] Self [id number] [facility]) O [id number] S [id number] MEDICAID HEA [id number] S [id number] [facility] HEA [id number] S [id number] [facility] HMO/THEO FAMILY NO CO PAY [id number] P [id number] MEDICAID M [id number] S [id number] [facility] HEA [id number] S [id number] MEDICAID [id number] SP [id number] [facility] COMMUNITY PLAN MCDO [id number] SP [id number] [facility] [id number] SP [id number] [facility]([place]) O [id number] S [id number] [facility] [place]ITY [place] [id number] 18 [id number] [facility] [id number] ANSI-Medicaid [id number] MEDICAID [id number] SP [id number] ANSI-Medicaid [id number] ANSI-Medicaid [id number] ANSI-Medicaid [id number] [facility] [id number] [facility] [id number] SP [id number] [employer] AMERIC[employer] XIX HMO [id number] 18 [id number] ANSI-Medicaid [id number] [facility] [place] [id number] 18 [id number] [place] [id number] [employer] COMMUNITY PLAN [id number] [id number] [facility] [id number] SP [id number] [employer] COMMUNITY PLAN XIX [id number] 18 [id number] [employer] Community Plan Medicaid [id number] Self [id number] [facility] Commercial [id number] Self [id number] [employer] COMMUNITY PLAN MCDO [id number] SP [id number] MEDICAID UNAVAILABLE SP UNAVAILA BLE [facility] [place] [id number] 18 [id number] [facility] [id number] 18 [id number] [facility] Health Maintenance Organization (HMO) [id number] Self [id number] [facility] [id number] SP [id number] [employer] COMMUNITY PLAN MCDO [id number] SP [id number] MEDICAID [id number] SP [id number] [facility]CA[facility]) P [id number] S [id number] [facility] [id number] [place] [id number] SP [id number] [facility] [id number] SP [id number] Problems, Conditions, and Diagnoses No Information Surgeries/Procedures Procedure Description Date Indications Data Source(s) Brief Emotional/Behav Assessment W/ Scoring Doc Per Standard Inst 05/11/2020 12:00:00 AM EST [facility] ([facility]) Results No Information Social History Code Duration Value Status Description Data Source(s ) ETOH Use 05/11/2020 12:00:00 AM EST Denies alcohol use complete d Denies alcohol use [facility] ([facility]) Vital Signs ID Date Data Source UNK Name Value Range Interpretation Code Description Data Source(s) Body height 69.5 [in_i] 69.5 [in_i] [facility] ([facility]) 5'9.50" Body weight 272.25 [lb_av] 272.25 [lb_av] [facility] T ([facility]) Body weight 123.493 kg 123.493 [facility] Body temperature 97.6 [degF] 97.6 [degF] [facility] ([facility]) Body temperature 36.4 Nicol 36.4 Nicol [facility] ( [facility]) Heart rate 96 /min 96 /min [facility] ([facility]) Oxygen saturation in Arterial blood by Pulse oximetry 94 % 94 % [facility] ([facility]) Respiratory rate 18 /min 18 /min [facility] ( [facility]) Systolic blood pressure 115 mm[Hg] 115 mm[Hg] [facility] ([facility]) Diastolic blood pressure 80 mm[Hg] 80 mm[Hg] [facility] ([facility]) Body mass index (BMI) [Ratio] 39.6 kg/m2 39.6 k g/m2 [facility] ([facility]) Systolic blood pressure 118 mm[Hg] 118 mm[Hg] [facility] ([facility]) Diastolic blood pressure 82 mm[Hg] 82 mm[Hg] [facility] ([facility]) Body mass index (BMI) [Ratio] 39.2 kg/m2 39.2 k g/m2 [facility]) Body height 69.5 [in_i] 69.5 [in_i] [facility] 5'9.50" Body weight 269.50 [lb_av] 269.50 [lb_av] [facility] T ([facility]) Body weight 122.245 kg 122.245 kg [facility] Body temperature 97.8 [degF] 97.8 [degF] [facility] Body temperature 36.6 Nicol 36.6 Nicol [facility] ( [facility]) Heart rate 78 /min 78 /min [facility] ([facility]) Oxygen saturation in Arterial blood by Pulse oximetry 97 % 97 % [facility] ([facility]) Respiratory rate 20 /min 20 /min [facility] ( [facility])
== END 2021-06-01 04:17 | disposition left against medical advice (07) ==
LOC: M ED 03:17
DX: Z53.21 Procedure and treatment not carried out due to patient leaving prior to being seen by health care provider (principal)

== ENCOUNTER 2021-06-26 06:46 | Emergency (ER) | payer OTHER ==
[~2021-06-26] VITALS: Ht 177.8 cm; Wt 114.0 kg
[2021-06-26] MEDS ORDERED: NAPR-885 (07:10)
[2021-06-26] MEDS ORDERED: OMEP-218 (07:10)
[2021-06-26 11:25] LABS: BASO # 0.1 10^3/uL (0.0-0.2); BASO % 0.4 % (0.0-1.0); EOS # 0.2 10^3/uL (0.0-0.5); EOS % 1.3 % (0.0-3.0); HEMATOCRIT 45.5 % (42.0-52.0); HEMOGLOBIN 15.2 g/dl (13.5-17.5); LYMPH # 4.5 10^3/uL (1.5-5.0); LYMPH % 39.5 % (24.0-44.0); MEAN CORPUSCULAR HEMOGLOBIN 29.5 pg (27.0-33.0); MEAN CORPUSCULAR HGB CONC 33.4 g/dl (32.0-36.5); MEAN CORPUSCULAR VOLUME 88.2 fl (80.0-96.0); MONO # 1.1 10^3/uL (0.0-0.8); MONO % 9.3 % (2.0-8.0); NEUTROPHILS # 5.6 10^3/uL (1.5-8.5); NEUTROPHILS % 49.1 % (36.0-66.0); PLATELET COUNT, AUTOMATED 220 10^3/uL (150-450); RED BLOOD COUNT 5.16 10^6/uL (4.30-6.10); WHITE BLOOD COUNT 11.3 10^3/uL (4.0-10.0)
[2021-06-26 12:01] LABS: CK-MB VALUE MASS < 1.0 NG/ML (<3.6); CPK CREATINE PHOSPHOKINASE 60 U/L (39-308); MB/CK RELATIVE INDEX 1.67 (< OR =4)
[2021-06-26 12:09] LABS: BLOOD UREA NITROGEN 21 MG/DL (7-18); CALCIUM LEVEL 9.2 MG/DL (8.5-10.1); CARBON DIOXIDE LEVEL 29 MEQ/L (21-32); CHLORIDE LEVEL 108 MEQ/L (98-107); CREATININE FOR GFR 1.12 MG/DL (0.70-1.30); GLOMERULAR FILTRATION RATE > 60.0 (>60); GLUCOSE, FASTING 110 MG/DL (70-100); LIPASE 53 U/L (73-393); POTASSIUM SERUM 4.6 MEQ/L (3.5-5.1); SODIUM LEVEL 143 MEQ/L (136-145)
[2021-06-26 13:06] VITALS: BP 129/79
[2021-06-27] MEDS ORDERED: OMEP1CAP73 PO (00:05)
[2021-06-27] MEDS ORDERED: NAPR500T6 PO (00:05)
[2021-06-27] MEDS ORDERED: VIST50CA PO (00:05)
== END 2021-06-26 13:40 | disposition home or self-care (01) ==
LOC: M ED 06:46
DX: R07.9 Chest pain, unspecified (principal); F17.200 Nicotine dependence, unspecified, uncomplicated; F12.10 Cannabis abuse, uncomplicated

== ENCOUNTER 2021-06-26 16:41 | Inpatient (IN) | payer OTHER ==
[~2021-06-26] VITALS: Ht 177.8 cm; Wt 115.9 kg
[~2021-06-26 16:41] MED LIST changes: +NAPR-885; +OMEP-218
[2021-06-26 17:15] LABS: HEMATOCRIT 45.5 % (42.0-52.0); HEMOGLOBIN 15.5 g/dl (13.5-17.5); MEAN CORPUSCULAR HEMOGLOBIN 29.8 pg (27.0-33.0); MEAN CORPUSCULAR HGB CONC 34.1 g/dl (32.0-36.5); MEAN CORPUSCULAR VOLUME 87.3 fl (80.0-96.0); PLATELET COUNT, AUTOMATED 235 10^3/uL (150-450); RED BLOOD COUNT 5.21 10^6/uL (4.30-6.10); WHITE BLOOD COUNT 9.5 10^3/uL (4.0-10.0)
[2021-06-26 17:49] LABS: ACETAMINOPHEN LEVEL < 2.0 UG/ML (10.0-30.0); ALT/SGPT 41 U/L (12-78); BILIRUBIN,DIRECT 0.2 MG/DL (0.0-0.2); BILIRUBIN,TOTAL 0.7 MG/DL (0.2-1.0); BLOOD UREA NITROGEN 20 MG/DL (7-18); CALCIUM LEVEL 8.9 MG/DL (8.5-10.1); CARBON DIOXIDE LEVEL 25 MEQ/L (21-32); CHLORIDE LEVEL 110 MEQ/L (98-107); CREATININE FOR GFR 0.97 MG/DL (0.70-1.30); ETHYL ALCOHOL (ETHANOL) < 0.003 % (0.000-0.010); GLOMERULAR FILTRATION RATE > 60.0 (>60); GLUCOSE, FASTING 106 MG/DL (70-100); POTASSIUM SERUM 4.3 MEQ/L (3.5-5.1); SALICYLATE LEVEL < 1.7 MG/DL (5.0-30.0); SODIUM LEVEL 141 MEQ/L (136-145); TOTAL PROTEIN 7.1 GM/DL (6.4-8.2)
[2021-06-26 18:22] LABS: AMPHETAMINES LEVEL URINE NEGATIVE (NEGATIVE); BARBITURATES URINE NEGATIVE (NEGATIVE); BENZODIAZEPINES URINE NEGATIVE (NEGATIVE); CANNABINOIDS URINE POSITIVE (NEGATIVE); COCAINE METABOLITE URINE NEGATIVE (NEGATIVE); METHADONE URINE NEGATIVE (NEGATIVE); OPIATES URINE NEGATIVE (NEGATIVE); PHENCYCLIDINE URINE NEGATIVE (NEGATIVE)
[2021-06-26 23:12] LABS: RSV AMPLIFICATION NEGATIVE (NEGATIVE)
[2021-06-27] MEDS ORDERED: VIST50CA PO (00:05)
[2021-06-27] MEDS ORDERED: OMEP1CAP73 PO (00:05)
[2021-06-27] MEDS ORDERED: NAPR500T6 PO (00:05)
[2021-06-27] MEDS ORDERED: HOME MED LIST COMPLETE! XX SCH (00:05)
[2021-06-27] MEDS ORDERED: MAALOX 30 ML SUSP *UDC PO PRN (20:45)
[2021-06-27] MEDS ORDERED: traZODone 50 MG TAB PO PRN (20:45)
[2021-06-27] MEDS ORDERED: NAPROXEN 250 MG TAB PO PRN (20:45)
[2021-06-27] MEDS ORDERED: ACETAMINOPHEN TAB 650MG DOSE (2X325MG) PO PRN (20:45)
[2021-06-27] MEDS: hydrOXYzine 50 MG TAB PO SCH (21:00)
[2021-06-27] MEDS: OMEPRAZOLE 20 MG CAP PO SCH (21:00)
[2021-06-28 00:28] VITALS: BP 114/71
[2021-06-28] MEDS: MOM 30ML SUSPENSION UDC PO PRN ×2 (01:21→21:39)
[2021-06-28] MEDS: OLANZapine ORAL DISINTEGRATING TAB 5MG PO PRN (01:21)
[2021-06-28] MEDS: hydrOXYzine 50 MG TAB PO SCH ×3 (08:42→20:55)
[2021-06-28] MEDS ORDERED: NICOTINE 14 MG/24 HR TRANSDERMAL TD PRN (13:05)
[2021-06-28] MEDS: SERTRALINE HCL 50 MG TAB PO SCH (14:39)
[2021-06-28 16:50] VITALS: BP 133/70
[2021-06-28] MEDS: risperiDONE 2 MG TAB PO SCH (20:55)
[2021-06-28] MEDS: OMEPRAZOLE 20 MG CAP PO SCH (20:55)
[2021-06-29] MEDS: OLANZapine ORAL DISINTEGRATING TAB 5MG PO PRN ×2 (04:22→17:39)
[2021-06-29 06:51] VITALS: BP 120/71
[2021-06-29] MEDS: SERTRALINE HCL 50 MG TAB PO SCH (08:17)
[2021-06-29] MEDS: hydrOXYzine 50 MG TAB PO SCH ×3 (08:17→20:29)
[2021-06-29] MEDS: busPIRone 5 MG TAB PO SCH ×3 (12:03→20:29)
[2021-06-29 16:46] VITALS: BP 133/76
[2021-06-29] MEDS: OMEGA-3 1000MG CAPSULE PO SCH (20:28)
[2021-06-29] MEDS: OMEPRAZOLE 20 MG CAP PO SCH (20:29)
[2021-06-29] MEDS: risperiDONE 2 MG TAB PO SCH (20:29)
[2021-06-30] MEDS: OLANZapine ORAL DISINTEGRATING TAB 5MG PO PRN (04:13)
[2021-06-30 06:22] VITALS: BP 133/76
[2021-06-30] MEDS: busPIRone 5 MG TAB PO SCH ×3 (08:27→20:43)
[2021-06-30] MEDS: SERTRALINE HCL 50 MG TAB PO SCH (08:27)
[2021-06-30] MEDS: OMEGA-3 1000MG CAPSULE PO SCH ×2 (08:27→20:43)
[2021-06-30] MEDS: hydrOXYzine 50 MG TAB PO SCH ×3 (08:27→20:43)
[2021-06-30] MEDS ORDERED: OLANZapine ORAL DISINTEGRATING TAB 5MG PO ONE (16:30)
[2021-06-30] MEDS: MOM 30ML SUSPENSION UDC PO PRN (17:53)
[2021-06-30] MEDS: OMEPRAZOLE 20 MG CAP PO SCH (20:44)
[2021-06-30] MEDS ORDERED: risperiDONE 2 MG TAB PO SCH (21:00)
[2021-06-30] MEDS ORDERED: QUEtiapine FUMARATE 50MG TAB PO SCH (21:00)
[2021-07-01 06:56] VITALS: BP 117/77
[2021-07-01] MEDS: busPIRone 5 MG TAB PO SCH (09:00)
[2021-07-01] MEDS: SERTRALINE HCL 50 MG TAB PO SCH (09:03)
[2021-07-01] MEDS: OMEGA-3 1000MG CAPSULE PO SCH (09:03)
[2021-07-01] MEDS: hydrOXYzine 50 MG TAB PO SCH (09:03)
[2021-07-01] MEDS ORDERED: SERT50TA29 PO (09:40)
[2021-07-01] MEDS ORDERED: RISP4TAB33 PO (09:40)
[2021-07-01] MEDS ORDERED: NICO14PA TD (09:40)
[2021-07-01] MEDS ORDERED: QUET50TA4 PO (09:40)
[2021-07-01] MEDS ORDERED: FISH1CAP26 PO (09:40)
== END 2021-07-01 14:22 | disposition home or self-care (01) | DRG 750 ==
LOC: M ED 16:41 → M ED INP 06-27 20:42 → M PSY 06-27 23:55
PROVIDERS: ADMIT Student in an Organized Health Care Education/Training Program; ATTEND Student in an Organized Health Care Education/Training Program
DX: F25.9 Schizoaffective disorder, unspecified (principal); F12.10 Cannabis abuse, uncomplicated; Z91.19 Patient's noncompliance with other medical treatment and regimen; R45.851 Suicidal ideations; Z91.14 Patient's other noncompliance with medication regimen; F17.210 Nicotine dependence, cigarettes, uncomplicated; Z79.899 Other long term (current) drug therapy; Z90.49 Acquired absence of other specified parts of digestive tract; Z20.822 Contact with and (suspected) exposure to COVID-19

== ENCOUNTER 2021-07-03 07:04 | Emergency (ER) | payer OTHER ==
[~2021-07-03] VITALS: Ht 177.8 cm; Wt 115.9 kg
[~2021-07-03 07:04] MED LIST changes: +FISH1CAP26 PO; +NAPR500T6 PO; +NICO14PA TD; +OMEP1CAP73 PO; +QUET50TA4 PO; +RISP4TAB33 PO
[2021-07-03] MEDS ORDERED: KETOROLAC 30 MG/ML 1ML VIAL IV ONE (07:25)
[2021-07-03 08:50] VITALS: BP 133/69
== END 2021-07-03 08:52 | disposition home or self-care (01) ==
LOC: M ED 07:04
DX: M94.0 Chondrocostal junction syndrome [Tietze] (principal); E78.5 Hyperlipidemia, unspecified; F17.200 Nicotine dependence, unspecified, uncomplicated; Z79.899 Other long term (current) drug therapy
CPT/HCPCS: 71045; 85379; 93005; 96374; 99284; J1885

== ENCOUNTER 2021-07-04 06:52 | Emergency (ER) | payer OTHER ==
[~2021-07-04] VITALS: Ht 177.8 cm; Wt 115.9 kg
[2021-07-04] MEDS ORDERED: diphenhydrAMINE 25MG CAP PO ONE (07:50)
[2021-07-04] MEDS ORDERED: KETOROLAC 60MG 2ML VIAL IM ONE (07:50)
[2021-07-04] MEDS ORDERED: ACETAMINOPHEN 500 MG TAB PO ONE (07:50)
[2021-07-04] MEDS ORDERED: PROMETHAZINE 25 MG TAB PO ONE (07:50)
[2021-07-04 09:38] VITALS: BP 152/72
== END 2021-07-04 09:40 | disposition home or self-care (01) ==
LOC: M ED 06:52
DX: R51.9 Headache, unspecified (principal); K21.9 Gastro-esophageal reflux disease without esophagitis; F44.5 Conversion disorder with seizures or convulsions; Z79.899 Other long term (current) drug therapy

== ENCOUNTER 2021-07-09 02:57 | Emergency (ER) | payer OTHER ==
[~2021-07-09] VITALS: Ht 177.8 cm; Wt 118.2 kg
[~2021-07-09 02:57] MED LIST changes: +OMEP-173; -OMEP-218
[2021-07-09 05:52] VITALS: BP 131/79
== END 2021-07-09 07:15 | disposition left against medical advice (07) ==
LOC: M ED 02:57
DX: Z53.21 Procedure and treatment not carried out due to patient leaving prior to being seen by health care provider (principal)

== ENCOUNTER 2022-12-15 04:30 | Emergency (ER) | payer OTHER ==
[~2022-12-15] VITALS: Ht 177.8 cm; Wt 115.4 kg
[~2022-12-15 04:30] MED LIST changes: +DIPH-435 PO; -DIPH25CA32 PO; -PAXI20TA29 PO; +PAXI20TA30 PO
[2022-12-15] MEDS ORDERED: TUMS750C22 PO (09:00)
[2022-12-15] MEDS ORDERED: AMOX875T2 PO (09:24)
[2022-12-15 09:29] VITALS: BP 128/63; TEMP 98; O2SAT 98
== END 2022-12-15 09:33 | disposition home or self-care (01) ==
LOC: M ED 04:30
DX: L02.216 Cutaneous abscess of umbilicus (principal); E66.9 Obesity, unspecified; Z79.899 Other long term (current) drug therapy; Z88.8 Allergy status to other drugs, medicaments and biological substances

== ENCOUNTER 2023-04-14 04:14 | Emergency (ER) | payer OTHER ==
[~2023-04-14] VITALS: Ht 180.3 cm; Wt 109.0 kg
[~2023-04-14 04:14] MED LIST changes: +AMOX875T2 PO; +TUMS750C22 PO
[2023-04-14 05:00] LABS: HEMATOCRIT 42.9 % (42.0-52.0); HEMOGLOBIN 15.1 g/dl (13.5-17.5); MEAN CORPUSCULAR HEMOGLOBIN 30.4 pg (27.0-33.0); MEAN CORPUSCULAR HGB CONC 35.2 g/dl (32.0-36.5); MEAN CORPUSCULAR VOLUME 86.5 fl (80.0-96.0); PLATELET COUNT, AUTOMATED 246 10^3/uL (150-450); RED BLOOD COUNT 4.96 10^6/uL (4.30-6.10); WHITE BLOOD COUNT 9.5 10^3/uL (4.0-10.0)
[2023-04-14 05:14] LABS: ETHYL ALCOHOL (ETHANOL) 0.004 % (0.000-0.010)
[2023-04-14 05:15] LABS: SALICYLATE LEVEL < 3.0 MG/DL (<30)
[2023-04-14 05:16] LABS: ALBUMIN 3.9 G/DL (3.2-5.2); ALKALINE PHOSPHATASE 91 U/L (46-116); ALT/SGPT 67 U/L (7.0-40); AST/SGOT 33 U/L (<34); BILIRUBIN,DIRECT 0.1 MG/DL (<0.4); BILIRUBIN,TOTAL 0.3 MG/DL (0.3-1.2); BLOOD UREA NITROGEN 20 MG/DL (9-23); CALCIUM LEVEL 9.2 MG/DL (8.5-10.1); CARBON DIOXIDE LEVEL 26 MMOL/L (20-31); CHLORIDE LEVEL 108 MMOL/L (98-107); CREATININE FOR GFR 1.06 MG/DL (0.70-1.30); GLOMERULAR FILTRATION RATE > 60.0 (>60); GLUCOSE, FASTING 94 MG/DL (60-100); POTASSIUM SERUM 3.9 MMOL/L (3.5-5.1); SODIUM LEVEL 141 MMOL/L (136-145)
[2023-04-14 05:18] LABS: THYROID STIMULATING HORMONE 2.034 uIU/ML (0.55-4.78)
[2023-04-14 05:24] LABS: AMPHETAMINES LEVEL URINE NEGATIVE (NEGATIVE); BARBITURATES URINE NEGATIVE (NEGATIVE); BENZODIAZEPINES URINE NEGATIVE (NEGATIVE); CANNABINOIDS URINE NEGATIVE (NEGATIVE); COCAINE METABOLITE URINE NEGATIVE (NEGATIVE); METHADONE URINE NEGATIVE (NEGATIVE); OPIATES URINE NEGATIVE (NEGATIVE); PHENCYCLIDINE URINE NEGATIVE (NEGATIVE)
[2023-04-14] MEDS ORDERED: IBUP-1764 PO (05:42)
[2023-04-14] MEDS ORDERED: HOME MED LIST COMPLETE! XX SCH (05:45)
[2023-04-14 06:21] VITALS: BP 138/84; TEMP 98.4; O2SAT 97
== END 2023-04-14 06:48 | disposition home or self-care (01) ==
LOC: M ED 04:14
DX: F43.0 Acute stress reaction (principal); R45.851 Suicidal ideations; K21.9 Gastro-esophageal reflux disease without esophagitis; F20.9 Schizophrenia, unspecified; F17.200 Nicotine dependence, unspecified, uncomplicated; Z79.83 Long term (current) use of bisphosphonates; Z79.1 Long term (current) use of non-steroidal anti-inflammatories (NSAID)

== ENCOUNTER 2023-06-04 04:22 | Emergency (ER) | payer OTHER ==
[~2023-06-04] VITALS: Ht 175.3 cm; Wt 113.6 kg
[~2023-06-04 04:22] MED LIST changes: +IBUP-1764 PO
[2023-06-04] MEDS ORDERED: NS 1,000 ML IV ONE (06:35)
[2023-06-04] MEDS ORDERED: ONDANSETRON 4MG 2ML VIAL IV ONE (06:35)
[2023-06-04] MEDS ORDERED: PANTOPRAZOLE 40MG VIAL IV ONE (06:50)
[2023-06-04 07:07] LABS: BASO % 0.4 % (0.0-1.0); EOS # 0.1 10^3/uL (0.0-0.5); EOS % 0.8 % (0.0-3.0); HEMATOCRIT 45.6 % (42.0-52.0); HEMOGLOBIN 15.9 g/dl (13.5-17.5); LYMPH # 1.3 10^3/uL (1.5-5.0); LYMPH % 11.8 % (24.0-44.0); MEAN CORPUSCULAR HEMOGLOBIN 30.6 pg (27.0-33.0); MEAN CORPUSCULAR HGB CONC 34.9 g/dl (32.0-36.5); MEAN CORPUSCULAR VOLUME 87.7 fl (80.0-96.0); MONO # 0.7 10^3/uL (0.0-0.8); MONO % 6.2 % (2.0-8.0); NEUTROPHILS # 8.9 10^3/uL (1.5-8.5); NEUTROPHILS % 80.3 % (36.0-66.0); PLATELET COUNT, AUTOMATED 203 10^3/uL (150-450); WHITE BLOOD COUNT 11.1 10^3/uL (4.0-10.0)
[2023-06-04] MEDS: GASTROGRAFIN SOLUTION 30ML PO SCH ×2 (07:19→08:05)
[2023-06-04 07:32] LABS: BILIRUBIN,DIRECT 0.3 MG/DL (<0.4); TOTAL PROTEIN 7.2 G/DL (5.7-8.2)
[2023-06-04 07:40] LABS: RSV AMPLIFICATION NEGATIVE (NEGATIVE)
[2023-06-04] MEDS ORDERED: ISOVUE-370 76% 100ML VIAL As Ordered ONE (08:55)
[2023-06-04 10:13] VITALS: BP 146/89; TEMP 98.3; O2SAT 96
== END 2023-06-04 10:19 | disposition home or self-care (01) ==
LOC: M ED 04:22
DX: R11.2 Nausea with vomiting, unspecified (principal); R19.7 Diarrhea, unspecified; M54.2 Cervicalgia; F17.200 Nicotine dependence, unspecified, uncomplicated; Z88.8 Allergy status to other drugs, medicaments and biological substances; Z79.1 Long term (current) use of non-steroidal anti-inflammatories (NSAID)
CPT/HCPCS: 74177; 80047; 80076; 83690; 85025; 87631; 96374; 99284; J2405; Q9963; Q9967